=== PATIENT | male | born 1975 | race American Indian/Alaskan Native ===

== ENCOUNTER 2021-09-14 10:48 | Inpatient (IN) | payer SELFPAY ==
--- NOTE | 2021-09-14 11:53 | XRay Report ---
CHEST 2 VIEWS INDICATION / CLINICAL INFORMATION: SOB. COMPARISON: None available. FINDINGS: SUPPORT DEVICES: None. HEART / MEDIASTINUM: There is an endovascular stent graft in the descending thoracic aorta. There is cardiomegaly. LUNGS / PLEURA: Bilateral airspace opacities, worse in the right lung. No pneumothorax. ADDITIONAL FINDINGS: No significant additional findings. IMPRESSION: 1. Bilateral airspace opacities, worse in the right lung. This could represent pneumonia or pulmonary edema. Recommend clinical correlation. 2. Cardiomegaly with stent graft of descending thoracic aorta. Signer Name: Adam Holland MD Signed: 09/14/2021 11:49 AM Workstation Name: [id number]
[2021-09-14] MEDS ORDERED: FUROSEMIDE 40 MG/4 ML INJ IV ONE (12:08)
[2021-09-14 12:13] LABS: Basophils # (Auto) 0.1 K/mm3 (0.0-0.1); Basophils % (Auto) 1.1 % (0.0-1.8); Eosinophils # (Auto) 0.1 K/mm3 (0.0-0.4); Eosinophils % (Auto) 1.2 % (0.0-4.3); Hematocrit 32.8 % (35.5-45.6); Hemoglobin 10.7 gm/dl (11.8-15.2); Lymphocytes # (Auto) 1.3 K/mm3 (1.2-5.4); Lymphocytes % (Auto) 10.1 % (13.4-35.0); Mean Corpuscular HGB Conc 33 % (32-34); Mean Corpuscular Volume 84 fl (84-94); Monocytes # (Auto) 0.6 K/mm3 (0.0-0.8); Monocytes % (Auto) 4.7 % (0.0-7.3); Platelet Count 489 K/mm3 (140-440); Red Blood Count 3.93 M/mm3 (3.65-5.03); Red Cell Distribution Width 15.4 % (13.2-15.2)
--- NOTE | 2021-09-14 12:13 | Emergency Department Report ---
HPI - General Chief Complaint: Dyspnea/Respdistress Time Seen by Provider: 09/14/21 11:32 - HPI HPI: Room 19 The patient is a 46-year-old male present with a chief complaint of shortness of breath. Patient states for the past 3 days he has had symptoms similar to what he had 3 months ago when he was diagnosed with pneumonia. Patient complains of cough that is nonproductive nasal congestion and shortness of breath. Patient has occasional right-sided chest pain and chest congestion. Patient states he has also noticed bilateral lower extremity edema. The patient states he has been vaccinated against Covid receiving his second Moderna vaccine in January 2021 ED Past Medical Hx - Past Medical History Previous Medical History?: Yes Hx Hypertension: Yes Hx Congestive Heart Failure: Yes Hx Renal Disease: Yes (History of acute renal failure) Additional medical history: aortic disection - Surgical History Additional Surgical History: Aortic dissection repair [place] September 2020 - Family History Family history: no significant - Social History Smoking Status: Former Smoker (None x2 years) Substance Use Type: None (Denies illicit drug use), Alcohol (Rarely) ED Review of Systems ROS: Stated complaint: SHORTNESS OF BREATH Other details as noted in HPI Constitutional: denies: fever Eyes: denies: eye pain ENT: denies: throat pain Respiratory: SOB with exertion Cardiovascular: as per HPI, edema Endocrine: no symptoms reported Gastrointestinal: denies: abdominal pain Genitourinary: denies: dysuria Musculoskeletal: denies: back pain Neurological: denies: headache Physical Exam - Physical Exam Vital Signs: Vital Signs 09/14/21 09/14/21 11:21 11:56 Temperature 98.4 F Pulse Rate 113 H Respiratory 16 42 H Rate O2 Sat by Pulse 85 94 Oximetry Physical Exam: GENERAL: The patient is well-developed well-nourished male lying on stretcher not appearing to be in acute distress. [] HEENT: Normocephalic. Atraumatic. Extraocular motions are intact. Patient has moist mucous membranes. NECK: Supple. Trachea midline CHEST/LUNGS: Coarse breath sounds at the bases. Slightly increased work of breathing HEART/CARDIOVASCULAR: Regular. There is tachycardia. There is no gallop rub or murmur. ABDOMEN: Abdomen is soft, nontender. Patient has normal bowel sounds. There is no abdominal distention. SKIN: There is no rash. There is trace to 1+ bilateral lower extremity pitting edema. There is no diaphoresis. NEURO: The patient is awake, alert, and oriented. The patient is cooperative. The patient has no focal neurologic deficits. The patient has normal speech. GCS 15 MUSCULOSKELETAL: There is no evidence of acute injury. ED Course Vital Signs 09/14/21 09/14/21 11:21 11:56 Temperature 98.4 F Pulse Rate 113 H Respiratory 16 42 H Rate O2 Sat by Pulse 85 94 Oximetry - Consultations Consultation #1: 09/14/21 12:59 [facility] called ED Medical Decision Making - Lab Data Result diagrams: 09/14/21 11:43 09/14/21 11:43 - Radiology Data Radiology results: report reviewed (Chest x-ray), image reviewed (Chest x-ray) interpreted by me: Chest [id number] patchy infiltrates. No pneumothorax [facility] [address] [place] [address] XRay Report Signed Patient: MIHIR HARRIS MR#: [id number] : 1975 Acct:[id number] Age/Sex: 46 / M ADM Date: 09/14/21 Loc: ED Attending Dr: Ordering Physician: MARYBETH BURRELL Date of Service: 09/14/21 Procedure(s): XR chest routine 2V Accession Number(s): [id number] cc: MARYBETH BURRELL Fluoro Time In Minutes: CHEST 2 VIEWS INDICATION / CLINICAL INFORMATION: SOB. COMPARISON: None available. FINDINGS: SUPPORT DEVICES: None. HEART / MEDIASTINUM: There is an endovascular stent graft in the descending thoracic aorta. There is cardiomegaly. LUNGS / PLEURA: Bilateral airspace opacities, worse in the right lung. No pneumothorax. ADDITIONAL FINDINGS: No significant additional findings. IMPRESSION: 1. Bilateral airspace opacities, worse in the right lung. This could represent pneumonia or pulmonary edema. Recommend clinical correlation. 2. Cardiomegaly with stent graft of descending thoracic aorta. Signer Name: Donta Plata MD Signed: 09/14/2021 11:49 AM Workstation Name: [id number] Transcribed By: DB Dictated By: DONTA PLATA MD Electronically Authenticated By: DONTA PLATA MD Signed Date/Time: 09/14/21 1149 DD/ 1147 TD/TT: - Differential Diagnosis CHF exacerbation, bilateral pneumonia, volume overload, COVID-19 omicron Critical care attestation.: If time is entered above; I have spent that time in minutes in the direct care of this critically ill patient, excluding procedure time. ED Disposition Clinical Impression: Hypoxia, CHF exacerbation Disposition: ADMITTED INPATIENT Is pt being admited?: Yes Does the pt Need Aspirin: No Condition: Serious Referrals: PRIMARY CARE, [Primary Care Provider] - 3-5 Days Time of Disposition: 13:03
[2021-09-14 12:40] LABS: Calcium 9.5 mg/dL (8.4-10.2)
[2021-09-14 12:52] LABS: Chol/HDL Ratio 3.09 %
[2021-09-14] MEDS ORDERED: HYDROmorphone 1 MG/1 ML INJ IV PRN ×2 (12:57)
[2021-09-14] MEDS ORDERED: ACETAMINOPHEN 325 MG TAB PO PRN ×2 (12:57)
[2021-09-14] MEDS ORDERED: SODIUM CHLORIDE 0.9% 1000 ML IV SOLN IV ONE (12:57)
[2021-09-14] MEDS ORDERED: ALBUTEROL 2.5 MG/3 ML NEBU IH PRN (12:57)
[2021-09-14] MEDS ORDERED: ONDANSETRON 4 MG/2 ML INJ IV PRN (12:57)
[2021-09-14] MEDS ORDERED: oxyCODONE /ACETAMINOPHEN 5-325MG TAB PO PRN (12:57)
--- NOTE | 2021-09-14 12:57 | History and Physical Report ---
History of Present Illness Chief complaint: I cannot breathe History of present illness: 46 YO Male with Obesity, HTN, CHF, CKD, PAD S/P Aortic Dissection presents to ED for evaluation. Patient reports "I cannot breathe". Patient states that he has experienced generalized weakness, shortness of breath, fatigue, malaise, body aches, dry cough, subjective fever, nasal congestion over the past 3 days with persistent and worsening symptoms over the same timeframe. Patient transported to [facility] via private vehicle for further care and evaluation of the aforementioned symptoms. The patient was seen and evaluated in the emergency department. All lab and imaging studies reviewed. Patient found to have a pulse oximetry of 86% on room air with exertion which is consistent with acute hypoxemic respiratory failure. Patient treated with supplemental oxygen without improvement in symptoms. Patient subsequently treated with noninvasive positive pressure ventilation with mild improvement in symptoms. Chest x-ray revealed bilateral pneumonia complicated by sepsis. Patient admitted to medical floor and initiated on sepsis protocol as well as coronavirus protocol. Patient acknowledges subjective fever but denies chills, chest pain, palpitation, skin rash, recent ill contacts, or known exposure to COVID-19. No prior admission for review. No medication listed at time of admission for reconciliation. Advanced care planning conducted in ED. Patient fully vaccinated against COVID- 19 in January 2021. Patient is due for his vaccination booster but has not received a booster. Past History Past Medical History: heart failure, hypertension Past Surgical History: Other (Vascular surgery) Social history: single. denies: smoking, alcohol abuse, prescription drug abuse Family history: diabetes, hypertension Medications and Allergies Allergies Allergy/AdvReac Type Severity Reaction Status Date / Time No Known Allergies Allergy Verified 09/14/21 11:26 Home Medications Medication Instructions Recorded Confirmed Last Taken Type NIFEdipine [Procardia Xl] 60 mg PO DAILY 09/14/21 09/14/21 Unknown History hydrALAZINE [Apresoline TAB] 100 mg PO TID 09/14/21 09/14/21 Unknown History Review of Systems Constitutional: fever, weakness, malaise, lethargy, no weight loss, no weight gain Ears, nose, mouth and throat: other (Diminished sense of smell, diminished sense of taste), no ear pain Cardiovascular: no chest pain, no orthopnea, no palpitations Respiratory: cough, shortness of breath, no cough with sputum, no excessive sputum Gastrointestinal: no abdominal pain, no nausea, no vomiting Genitourinary Male: no hematuria, no flank pain, no discharge, no urinary frequency, no urinary hesitancy Rectal: no pain, no incontinence, no bleeding Musculoskeletal: no neck stiffness, no neck pain, no arm numbness/tingling, no low back pain Integumentary: no rash, no pruritis, no redness Neurological: no transient paralysis, no paralysis, no weakness, no numbness, no tingling, no seizures Psychiatric: no anxiety, no memory loss, no sleep disturbances, no insomnia, no hypersomnia, no change in appetite, no disorientation, no hallucinations Endocrine: no cold intolerance, no heat intolerance, no excessive thirst, no polydipsia, no polyuria Hematologic/Lymphatic: no easy bruising, no easy bleeding Allergic/Immunologic: no allergic rhinitis, no wheezing Exam - Constitutional Vitals: Temp Pulse Resp BP Pulse Ox 98.4 F 94 H 47 H 181/110 86 09/14/21 11:21 09/14/21 12:30 09/14/21 12:30 09/14/21 12:30 09/14/21 12:30 General appearance: Present: mild distress, obese - EENT Eyes: Present: PERRL ENT: hearing intact, clear oral mucosa - Neck Neck: Present: supple, normal ROM - Respiratory Respiratory effort: labored, accessory muscle use Respiratory: bilateral: diminished, rhonchi - Cardiovascular Rhythm: other (Tachycardia) Heart Sounds: Present: S1 & S2. Absent: rub, click - Extremities Extremities: pulses symmetrical, No edema Peripheral Pulses: abnormal (Capillary refill greater than 3.5 seconds) - Abdominal General gastrointestinal: Present: soft, non-tender, non-distended, normal bowel sounds Male genitourinary: Present: normal - Integumentary Integumentary: Present: warm, dry, clammy, decreased turgor - Musculoskeletal Musculoskeletal: generalized weakness - Psychiatric Psychiatric: appropriate mood/affect, intact judgment & insight, agitated - Neurologic Neurologic: CNII-XII intact, moves all extremities HEART Score - HEART Score Troponin: Troponin T 0.046 ng/mL (0.00-0.029) H 09/14/21 11:43 Results - Labs CBC & Chem 7: 09/14/21 11:43 09/14/21 11:43 Labs: Abnormal lab results 09/14/21 09/14/21 09/14/21 Range/Units 11:43 11:43 11:43 WBC 12.6 H (4.5-11.0) K/mm3 Hgb 10.7 L (11.8-15.2) gm/dl Hct 32.8 L (35.5-45.6) % MCH 27 L (28-32) pg RDW 15.4 H (13.2-15.2) % Plt Count 489 H (140-440) K/mm3 Lymph % (Auto) 10.1 L (13.4-35.0) % Seg Neutrophils % 82.9 H (40.0-70.0) % Seg Neutrophils # 10.5 H (1.8-7.7) K/mm3 Potassium 5.1 H (3.6-5.0) mmol/L Carbon Dioxide 19 L (22-30) mmol/L BUN 47 H (9-20) mg/dL Creatinine 3.5 H (0.8-1.3) mg/dL Troponin T 0.046 H (0.00-0.029) ng/mL NT-Pro-B Natriuret Pep 6001 H (0-450) pg/mL Assessment and Plan - Patient Problems (1) Sepsis Current Visit: Yes Status: Acute Qualifiers: Acute respiratory failure type: with hypoxia Plan to address problem: Sepsis protocol: Chest x-ray, CBC, CMP, supplemental oxygen, pulse oximetry, IV antibiotic therapy, IV fluid resuscitation therapy, maintain mean arterial pressure greater than equal sixty-five, serial lactic acid level, blood culture. (2) Acute hypoxemic respiratory failure Current Visit: Yes Status: Acute Plan to address problem: Chest x-ray, supplemental oxygen, pulse oximetry, nebulizer therapy, pulmonary toilet (3) Suspected 2019-nCoV infection Current Visit: Yes Status: Acute Plan to address problem: Coronavirus protocol: Supplemental oxygen, pulse oximetry, noninvasive positive pressure ventilation, prone positioning while in bed, vitamin C therapy, vitamin D therapy, zinc therapy, prophylactic anticoagulation. IV steroid therapy. (4) Pneumonia Current Visit: Yes Status: Acute Plan to address problem: Pneumonia protocol: Chest x-ray, CBC, CMP, supplemental oxygen, pulse oximetry, nebulizer therapy, blood culture. (5) Obesity hypoventilation syndrome Current Visit: Yes Status: Acute Plan to address problem: Balanced diet, increase physical activity at discharge (6) Accelerated hypertension Current Visit: Yes Status: Acute Plan to address problem: Monitor blood pressure every shift, continue medical management. (7) DVT prophylaxis Current Visit: Yes Status: Acute Plan to address problem: SCD to bilateral lower extremities while in bed, prophylactic anticoagulation (8) Advance care planning Current Visit: Yes Status: Acute Plan to address problem: Disease education conducted, care plan discussed, diagnoses discussed, prognosis discussed, patient is full code. Patient counseled regarding undergoing booster for coronavirus infection. Patient knowledges understanding and agreement with care plan. +30 minutes. (9) COVID-19 vaccination not done Current Visit: Yes Status: Acute Plan to address problem: Patient COVID-19 vaccination booster not done and is overdue at this time. Patient counseled.
[2021-09-14] MEDS ORDERED: AZITHROMYCIN/NS 500 MG/250 ML 500 MG/250 ML BAG IV SCH (13:00)
[2021-09-14] MEDS: cefTRIAXone/NS 2 GM/100 ML 2 GM/100 ML BAG IV SCH (13:34)
[2021-09-14] MEDS: methylPREDNISolone Sod Succinate 40 MG/1 ML INJ IV SCH ×2 (13:34→21:50)
[2021-09-14] MEDS ORDERED: LORazepam 2 MG/ML VIAL IV PRN (15:00)
[2021-09-14] MEDS ORDERED: hydrALAZINE 20 MG/1 ML INJ IV ONE (16:18)
[2021-09-14] MEDS ORDERED: cloNIDine 0.2 MG TAB PO ONE (17:21)
[2021-09-14] MEDS ORDERED: hydrALAZINE 20 MG/1 ML INJ IV PRN (20:41)
[2021-09-14] MEDS: ASCORBIC ACID 500 MG TAB PO SCH (21:48)
[2021-09-14] MEDS: ZINC SULFATE 220 MG CAP PO SCH (21:48)
[2021-09-14] MEDS: HEPARIN 5,000 UNIT/1 ML VIAL SUB-Q SCH (21:52)
[2021-09-15] MEDS: methylPREDNISolone Sod Succinate 40 MG/1 ML INJ IV SCH ×3 (05:38→21:13)
[2021-09-15 06:30] LABS: Hematocrit 31.6 % (35.5-45.6); Hemoglobin 9.6 gm/dl (11.8-15.2); Mean Corpuscular HGB Conc 30 % (32-34); Mean Corpuscular Volume 85 fl (84-94); Platelet Count 470 K/mm3 (140-440); Red Blood Count 3.69 M/mm3 (3.65-5.03); Red Cell Distribution Width 15.6 % (13.2-15.2)
[2021-09-15 06:46] LABS: Calcium 9.3 mg/dL (8.4-10.2)
[2021-09-15] MEDS ORDERED: hydrALAZINE 100 MG TAB PO SCH ×2 (08:00→13:20)
[2021-09-15 08:05] LABS: Anisocytosis 1+; Hypochromasia 1+; Total Cells Counted 100
[2021-09-15 08:06] LABS: Platelet Estimate Consistent w Auto
--- NOTE | 2021-09-15 08:35 | Consultation ---
History of Present Illness - Reason for Consult Consult date: 09/15/21 acute renal failure - History of Present Illness Mr. Collins is a 46y with hx of RAHEL requiring hemodialysis w/ recovery of renal function, residual stage IV CKD and CHF who presented to the ED with SOB. Patient reports that he was in usual state of health until appx 2-3 days ago when he began experiencing dyspnea with exertion and leg swelling. He denies fever, chills, cough. He denies chest pain, He reports a hx of RAHEL requiring dialysis. Mr. Collins states that his last treatment was on February 06. He states that his GFR was in the 20s (improved from 11) at his last visit with [facility]. Mr. Collins reports that he is seen every 3 months. Past History Past Medical History: heart failure, hypertension, renal failure (Hx of RAHEL requring HD (last treatment January 2021);now w/ stage IV CKD) Past Surgical History: Other (Vascular surgery) Social history: single. denies: smoking, alcohol abuse, prescription drug abuse Family history: diabetes, hypertension Medications and Allergies Allergies Allergy/AdvReac Type Severity Reaction Status Date / Time No Known Allergies Allergy Verified 09/14/21 11:26 Home Medications Medication Instructions Recorded Confirmed Last Taken Type NIFEdipine [Procardia Xl] 60 mg PO DAILY 09/14/21 09/14/21 Unknown History hydrALAZINE [Apresoline TAB] 25 mg PO TID 09/14/21 Unknown History Labetalol HCl [Labetalol 300mg TAB] 300 mg PO TID 09/15/21 09/15/21 09/13/21 21:00 History Active Meds: Active Medications Acetaminophen (Acetaminophen 325 Mg Tab) 650 mg PO Q4H PRN PRN Reason: Pain MILD(1-3)/Fever >100.5/ORNELAS Albuterol (Albuterol 2.5 Mg/3 Ml Nebu) 2.5 mg IH Q4HRT PRN PRN Reason: Shortness Of Breath Ascorbic Acid (Ascorbic Acid 500 Mg Tab) 500 mg PO BID MATILDA Last Admin: 09/14/21 21:48 Dose: 500 mg Documented by: Azithromycin (Azithromycin 250 Mg Tab) 500 mg PO QDAY MATILDA Stop: 09/18/21 10:01 Cholecalciferol (Cholecalciferol (Vit D3) 1000 Unit (25 Mcg) Tab) 1,000 unit PO QDAY [facility] Heparin Sodium (Porcine) (Heparin 5,000 Unit/1 Ml Vial) 5,000 unit SUB-Q Q12HR [facility] Last Admin: 09/14/21 21:52 Dose: 5,000 unit Documented by: Hydralazine HCl (Hydralazine 100 Mg Tab) 100 mg PO TID [facility] Hydralazine HCl (Hydralazine 20 Mg/1 Ml Inj) 10 mg IV Q6HR PRN PRN Reason: Hypertension Last Admin: 09/14/21 20:54 Dose: 10 mg Documented by: Hydromorphone HCl (Hydromorphone 1 Mg/1 Ml Inj) 0.25 mg IV Q4H PRN PRN Reason: Pain, Moderate (4-6) Hydromorphone HCl (Hydromorphone 1 Mg/1 Ml Inj) 0.5 mg IV Q23H PRN PRN Reason: Pain , Severe (7-10) Ceftriaxone Sodium (Rocephin/Ns 2 Gm/100 Ml) 2 gm in 100 mls @ 200 mls/hr IV Q24H [facility]; Protocol Stop: 09/18/21 14:29 Last Admin: 09/14/21 13:34 Dose: 200 mls/hr Documented by: Lorazepam (Lorazepam 2 Mg/Ml Vial) 1 mg IV Q8H PRN PRN Reason: Agitation Methylprednisolone Sodium Succinate (Methylprednisolone Sod Succinate 40 Mg/1 Ml Inj) 40 mg IV Q8H [facility] Last Admin: 09/15/21 05:38 Dose: 40 mg Documented by: Nifedipine (Nifedipine Xl 60 Mg Tab) 60 mg PO DAILY [facility] Ondansetron HCl (Ondansetron 4 Mg/2 Ml Inj) 4 mg IV Q8H PRN PRN Reason: Nausea And Vomiting Oxycodone/Acetaminophen (Oxycodone /Acetaminophen 5-325mg Tab) 1 tab PO Q16H PRN PRN Reason: Pain, Moderate (4-6) Sodium Chloride (Sodium Chloride 0.9% 10 Ml Flush Syringe) 10 ml IV BID [facility] Last Admin: 09/14/21 21:50 Dose: 10 ml Documented by: Sodium Chloride (Sodium Chloride 0.9% 10 Ml Flush Syringe) 10 ml IV PRN PRN PRN Reason: LINE FLUSH Zinc Sulfate (Zinc Sulfate 220 Mg Cap) 220 mg PO BID [facility] Last Admin: 09/14/21 21:48 Dose: 220 mg Documented by: Review of Systems All systems: negative Exam - Vital Signs Vital signs: Vital Signs Temp Pulse Resp Pulse Ox 98.4 F 113 H 16 85 09/14/21 11:21 09/14/21 11:21 09/14/21 11:21 09/14/21 11:21 - General Appearance General appearance: well-developed, well-nourished EENT: ATNC Respiratory: Other (deferred as isolation stethoscope not available) Heart: other (deferred as isolation stethoscope not available) Gastrointestinal: Absent: tenderness, distended Integumentary: no rash, warm and dry Musculoskeletal: Present: other (no edema) Psychiatric: cooperative Results - Lab Results 09/15/21 05:17 09/15/21 05:17 Most recent lab results Calcium 9.3 mg/dL (8.4-10.2) 09/15/21 05:17 Assessment and Plan Impression: * Stage IV CKD --Hx of RAHEL requiring HD (discontinued in January 2021)' * Acute hypoxic respiratory failure * Hypertension * Congestive heart failure Plan: * Renal function at/near baseline per patient. Continue conservative management and close observation. No indication for hemodialysis at this time. * Diuresis prn * Abx per primary team * Await COVID 19 PCR results * Dose medications for renal function * Avoid potential nephrotoxins
--- NOTE | 2021-09-15 09:57 | Progress Note ---
Assessment and Plan Assessment and plan: 46 YO Male with Obesity, HTN, CHF, CKD, PAD S/P Aortic Dissection presents to ED for evaluation. Patient reports "I cannot breathe". Patient states that he has experienced generalized weakness, shortness of breath, fatigue, malaise, body aches, dry cough, subjective fever, nasal congestion over the past 3 days with persistent and worsening symptoms over the same timeframe. Patient transported to [facility] via private vehicle for further care and evaluation of the aforementioned symptoms. The patient was seen and evaluated in the emergency department. All lab and imaging studies reviewed. Patient found to have a pulse oximetry of 86% on room air with exertion which is consistent with acute hypoxemic respiratory failure. Patient treated with supplemental oxygen without improvement in symptoms. Patient subsequently treated with noninvasive positive pressure ventilation with mild improvement in symptoms. Chest x-ray revealed bilateral pneumonia complicated by sepsis. Patient admitted to medical floor and initiated on sepsis protocol as well as coronavirus protocol. Patient acknowledges subjective fever but denies chills, chest pain, palpitation, skin rash, recent ill contacts, or known exposure to COVID-19. No prior admission for review. No medication listed at time of admission for reconciliation. Advanced care planning conducted in ED. Patient fully vaccinated against COVID-19 in January 2021. Patient is due for his vaccination booster but has not received a booster. 09/15: Patient seen this morning remains on BiPAP we will consult cardiology, flight test mechanic and vice president of compliance. We will begin to wean BiPAP. Patient has underlying elevated troponin which could be secondary to renal dysfunction nevertheless we will monitor WBC has improved I discussed with him extensively he does not follow with any bilingual social worker he does have a flight test mechanic. He is a [place] patient. We will see if we can wean him off the BiPAP today and aggressively diurese him while monitoring his renal function. Plan of care discussed with the patient and also with flight test mechanic. I put a call to the pulmonary team to update them on the consult waiting for callback (1) Sepsis Current Visit: Yes Status: Acute Qualifiers: Acute respiratory failure type: with hypoxia Plan to address problem: Sepsis protocol: Chest x-ray, CBC, CMP, supplemental oxygen, pulse oximetry, IV antibiotic therapy, IV fluid resuscitation therapy, maintain mean arterial pressure greater than equal sixty-five, serial lactic acid level, blood culture. (2) Acute hypoxemic respiratory failure Current Visit: Yes Status: Acute Plan to address problem: Chest x-ray, supplemental oxygen, pulse oximetry, nebulizer therapy, pulmonary toilet (3) Suspected 2019-nCoV infection Current Visit: Yes Status: Acute Plan to address problem: Coronavirus protocol: Supplemental oxygen, pulse oximetry, noninvasive positive pressure ventilation, prone positioning while in bed, vitamin C therapy, vitamin D therapy, zinc therapy, prophylactic anticoagulation. IV steroid therapy. (4) Pneumonia Current Visit: Yes Status: Acute Plan to address problem: Pneumonia protocol: Chest x-ray, CBC, CMP, supplemental oxygen, pulse oximetry, nebulizer therapy, blood culture. (5) Obesity hypoventilation syndrome Current Visit: Yes Status: Acute Plan to address problem: Balanced diet, increase physical activity at discharge (6) Accelerated hypertension Current Visit: Yes Status: Acute Plan to address problem: Monitor blood pressure every shift, continue medical management. (7) acute kidney injury on chronic CKD likely underlying vasomotor nephropathy (8) possible underlining volume overload question underlining congestive heart failure probably systolic (9) hyperkalemia improved (10) metabolic acidosis (11) anemia of chronic disease (12) DVT prophylaxis Current Visit: Yes Status: Acute Plan to address problem: SCD to bilateral lower extremities while in bed, prophylactic anticoagulation (13) Advance care planning Current Visit: Yes Status: Acute Plan to address problem: Disease education conducted, care plan discussed, diagnoses discussed, prognosis discussed, patient is full code. Patient counseled regarding undergoing booster for coronavirus infection. Patient knowledges understanding and agreement with care plan. +30 minutes. (14) COVID-19 vaccination not done Current Visit: Yes Status: Acute Plan to address problem: Patient COVID-19 vaccination booster not done and is overdue at this time. Patient counseled. History Interval history: Patient seen and examined this morning still on BiPAP unsure of duration but states that he is feeling better. Hospitalist Physical - Physical exam Narrative exam: VITAL SIGNS: Reviewed. GENERAL: The patient appears normally developed, on BiPAP this vital signs as documented. HEAD: No signs of head trauma. EYES: Pupils are equal. Extraocular motions intact. EARS: Hearing grossly intact. MOUTH: Oropharynx is normal. NECK: No adenopathy, no JVD. CHEST: Chest with diminished breath sounds bilaterally. No wheezes, rales, or rhonchi. CARDIAC: Regular rate and rhythm. S1 and S2, without murmurs, gallops, or rubs. VASCULAR: No Edema. Peripheral pulses normal and equal in all extremities. ABDOMEN: Soft, non tender and non distended. No rebound or guarding, and no masses palpated. Bowel Sounds normal. MUSCULOSKELETAL: Good range of motion of all major joints. Extremities without clubbing, cyanosis. +1 bilateral pitting edema. NEUROLOGIC EXAM: Alert and oriented x 3 No focal sensory or strength deficits. Speech normal. Follows commands. PSYCHIATRIC: Mood normal. SKIN: detail exam as documented in skin assessment - Constitutional Vitals: Temp Pulse Resp BP Pulse Ox 98.2 F 97 H 18 165/99 100 09/15/21 04:37 09/15/21 04:37 09/15/21 04:37 09/15/21 04:37 09/15/21 04:37 General appearance: Present: mild distress, obese HEART Score - HEART Score Troponin: Troponin T 0.046 ng/mL (0.00-0.029) H 09/14/21 11:43 Results - Labs CBC & Chem 7: 09/15/21 05:17 09/15/21 05:17 Labs: Laboratory Last Values WBC 10.6 K/mm3 (4.5-11.0) 09/15/21 05:17 RBC 3.69 M/mm3 (3.65-5.03) 09/15/21 05:17 Hgb 9.6 gm/dl (11.8-15.2) L 09/15/21 05:17 Hct 31.6 % (35.5-45.6) L 09/15/21 05:17 MCV 85 fl (84-94) 09/15/21 05:17 MCH 26 pg (28-32) L 09/15/21 05:17 MCHC 30 % (32-34) L 09/15/21 05:17 RDW 15.6 % (13.2-15.2) H 09/15/21 05:17 Plt Count 470 K/mm3 (140-440) H 09/15/21 05:17 Lymph % (Auto) 10.1 % (13.4-35.0) L 09/14/21 11:43 [place] % (Auto) 4.7 % (0.0-7.3) 09/14/21 11:43 Eos % (Auto) 1.2 % (0.0-4.3) 09/14/21 11:43 Baso % (Auto) 1.1 % (0.0-1.8) 09/14/21 11:43 Lymph # (Auto) 1.3 K/mm3 (1.2-5.4) 09/14/21 11:43 [place] # (Auto) 0.6 K/mm3 (0.0-0.8) 09/14/21 11:43 Eos # (Auto) 0.1 K/mm3 (0.0-0.4) 09/14/21 11:43 Baso # (Auto) 0.1 K/mm3 (0.0-0.1) 09/14/21 11:43 Add Manual Diff Complete 09/15/21 05:17 Total Counted 100 09/15/21 05:17 Seg Neutrophils % Medical Office Professional Instructor 09/15/21 05:17 Seg Neuts % (Manual) 94.0 % (40.0-70.0) H 09/15/21 05:17 Lymphocytes % (Manual) 5.0 % (13.4-35.0) L 09/15/21 05:17 Monocytes % (Manual) 1.0 % (0.0-7.3) 09/15/21 05:17 Nucleated RBC % Not Reportable 09/15/21 05:17 Seg Neutrophils # 10.5 K/mm3 (1.8-7.7) H 09/14/21 11:43 Seg Neutrophils # Man 10.0 K/mm3 (1.8-7.7) H 09/15/21 05:17 Band Neutrophils # 0.0 K/mm3 09/15/21 05:17 Lymphocytes # (Manual) 0.5 K/mm3 (1.2-5.4) L 09/15/21 05:17 Abs React Lymphs (Man) 0.0 K/mm3 09/15/21 05:17 Monocytes # (Manual) 0.1 K/mm3 (0.0-0.8) 09/15/21 05:17 Eosinophils # (Manual) 0.0 K/mm3 (0.0-0.4) 09/15/21 05:17 Basophils # (Manual) 0.0 K/mm3 (0.0-0.1) 09/15/21 05:17 Metamyelocytes # 0.0 K/mm3 09/15/21 05:17 Myelocytes # 0.0 K/mm3 09/15/21 05:17 Promyelocytes # 0.0 K/mm3 09/15/21 05:17 Blast Cells # 0.0 K/mm3 09/15/21 05:17 WBC Morphology Not Reportable 09/15/21 05:17 Hypersegmented Neuts Not Reportable 09/15/21 05:17 Hyposegmented Neuts Not Reportable 09/15/21 05:17 Hypogranular Neuts Not Reportable 09/15/21 05:17 Smudge Cells Not Reportable 09/15/21 05:17 Toxic Granulation Not Reportable 09/15/21 05:17 Toxic Vacuolation Not Reportable 09/15/21 05:17 Dohle Bodies Not Reportable 09/15/21 05:17 Pelger-Huet Anomaly Not Reportable 09/15/21 05:17 Mark Rods Not Reportable 09/15/21 05:17 Platelet Estimate Consistent w auto 09/15/21 05:17 Clumped Platelets Not Reportable 09/15/21 05:17 Plt Clumps, EDTA Not Reportable 09/15/21 05:17 Large Platelets Not Reportable 09/15/21 05:17 Giant Platelets Not Reportable 09/15/21 05:17 Platelet Satelliting Not Reportable 09/15/21 05:17 Plt Morphology Comment Not Reportable 09/15/21 05:17 RBC Morphology Not Reportable 09/15/21 05:17 Dimorphic RBCs Not Reportable 09/15/21 05:17 Polychromasia Not Reportable 09/15/21 05:17 Hypochromasia 1+ 09/15/21 05:17 Poikilocytosis Not Reportable 09/15/21 05:17 Anisocytosis 1+ 09/15/21 05:17 Microcytosis Not Reportable 09/15/21 05:17 Macrocytosis Not Reportable 09/15/21 05:17 Spherocytes Not Reportable 09/15/21 05:17 Pappenheimer Bodies Not Reportable 09/15/21 05:17 Sickle Cells Not Reportable 09/15/21 05:17 Target Cells Not Reportable 09/15/21 05:17 Tear Drop Cells Not Reportable 09/15/21 05:17 Ovalocytes Not Reportable 09/15/21 05:17 Helmet Cells Not Reportable 09/15/21 05:17 [place] Bodies Not Reportable 09/15/21 05:17 [place] Rings Not Reportable 09/15/21 05:17 [place] Cells Not Reportable 09/15/21 05:17 Bite Cells Not Reportable 09/15/21 05:17 Crenated Cell Not Reportable 09/15/21 05:17 Elliptocytes Not Reportable 09/15/21 05:17 Acanthocytes (Spur) Not Reportable 09/15/21 05:17 Rouleaux Not Reportable 09/15/21 05:17 Hemoglobin C Crystals Not Reportable 09/15/21 05:17 Schistocytes Not Reportable 09/15/21 05:17 Malaria parasites Not Reportable 09/15/21 05:17 Isidro Bodies Not Reportable 09/15/21 05:17 Hem Pathologist Commnt No 09/15/21 05:17 D-Dimer 1232.79 ng/mlDDU (0-234) H 09/14/21 13:23 Sodium 143 mmol/L (137-145) 09/15/21 05:17 Potassium 4.3 mmol/L (3.6-5.0) 09/15/21 05:17 Chloride 107.1 mmol/L (98-107) H 09/15/21 05:17 Carbon Dioxide 18 mmol/L (22-30) L 09/15/21 05:17 Anion Gap 22 mmol/L 09/15/21 05:17 BUN 59 mg/dL (9-20) H 09/15/21 05:17 Creatinine 3.8 mg/dL (0.8-1.3) H 09/15/21 05:17 Estimated GFR 21 ml/min 09/15/21 05:17 BUN/Creatinine Ratio 16 % 09/15/21 05:17 Glucose 130 mg/dL (75-100) H 09/15/21 05:17 Lactic Acid 1.30 mmol/L (0.7-2.0) 09/14/21 20:50 Calcium 9.3 mg/dL (8.4-10.2) 09/15/21 05:17 Total Bilirubin 0.60 mg/dL (0.1-1.2) 09/14/21 11:43 AST 31 units/L (5-40) 09/14/21 11:43 ALT 13 units/L (7-56) 09/14/21 11:43 Alkaline Phosphatase 101 units/L (35-129) 09/14/21 11:43 Lactate Dehydrogenase 247 units/L (91-180) H 09/14/21 13:23 Troponin T 0.046 ng/mL (0.00-0.029) H 09/14/21 11:43 C-Reactive Protein 6.00 mg/dL (0.00-1.30) H 09/14/21 13:23 NT-Pro-B Natriuret Pep 6001 pg/mL (0-450) H 09/14/21 11:43 Total Protein 7.6 g/dL (6.3-8.2) 09/14/21 11:43 Albumin 4.0 g/dL (3.9-5) 09/14/21 11:43 Albumin/Globulin Ratio 1.1 % 09/14/21 11:43 Triglycerides 92 mg/dL (2-149) 09/14/21 11:43 Cholesterol 170 mg/dL (50-199) 09/14/21 11:43 LDL Cholesterol Direct 94 mg/dL (50-130) 09/14/21 11:43 HDL Cholesterol 55 mg/dL (40-59) 09/14/21 11:43 Cholesterol/HDL Ratio 3.09 % 09/14/21 11:43 Procalcitonin 0.24 ng/mL (<0.15) 09/14/21 13:23 Influenza A (Rapid) Negative (Negative) 09/14/21 Unknown Influenza B (Rapid) Negative (Negative) 09/14/21 Unknown Microbiology: Microbiology 09/14/21 12:12 Peripheral/Venous Blood Culture - Preliminary Culture in Progress 09/14/21 12:12 Peripheral/Venous Blood Culture - Preliminary Culture in Progress Uriostegui/IV: Voiding Method Urinal Active Medications - Current Medications Current Medications: Generic Name Dose Route Start Last Admin Trade Name Freq PRN Reason Stop Dose Admin Acetaminophen 650 mg 09/14/21 12:57 Acetaminophen 325 Mg Tab PO Q4H PRN Pain MILD(1-3)/Fever >100.5/ORNELAS Albuterol 2.5 mg 09/14/21 12:57 Albuterol 2.5 Mg/3 Ml Nebu IH Q4HRT PRN Shortness Of Breath Ascorbic Acid 500 mg 09/14/21 22:00 09/14/21 21:48 Ascorbic Acid 500 Mg Tab PO 500 mg BID MATILDA Administration Azithromycin 500 mg 09/15/21 10:00 Azithromycin 250 Mg Tab PO 09/18/21 10:01 QDAY MATILDA Cholecalciferol 1,000 unit 09/15/21 10:00 Cholecalciferol (Vit D3) 1000 Unit (25 Mcg) Tab PO QDAY [facility] Heparin Sodium (Porcine) 5,000 unit 09/14/21 22:00 09/14/21 21:52 Heparin 5,000 Unit/1 Ml Vial SUB-Q 5,000 unit Q12HR MATILDA Administration Hydralazine HCl 100 mg 09/15/21 08:00 Hydralazine 100 Mg Tab PO TID [facility] Hydralazine HCl 10 mg 09/14/21 20:41 09/14/21 20:54 Hydralazine 20 Mg/1 Ml Inj IV 10 mg Q6HR PRN Administration Hypertension Hydromorphone HCl 0.25 mg 09/14/21 12:57 Hydromorphone 1 Mg/1 Ml Inj IV Q4H PRN Pain, Moderate (4-6) Hydromorphone HCl 0.5 mg 09/14/21 12:57 Hydromorphone 1 Mg/1 Ml Inj IV Q23H PRN Pain , Severe (7-10) Ceftriaxone Sodium 2 gm in 100 mls @ 200 mls/hr 09/14/21 14:00 09/14/21 13:34 Rocephin/Ns 2 Gm/100 Ml IV 09/18/21 14:29 200 mls/hr Q24H MATILDA Administration Protocol Lorazepam 1 mg 09/14/21 15:00 Lorazepam 2 Mg/Ml Vial IV Q8H PRN Agitation Methylprednisolone Sodium Succinate 40 mg 09/14/21 14:00 09/15/21 05:38 Methylprednisolone Sod Succinate 40 Mg/1 Ml Inj IV 40 mg Q8H MATILDA Administration Nifedipine 60 mg 09/15/21 10:00 Nifedipine Xl 60 Mg Tab PO DAILY [facility] Ondansetron HCl 4 mg 09/14/21 12:57 Ondansetron 4 Mg/2 Ml Inj IV Q8H PRN Nausea And Vomiting Oxycodone/Acetaminophen 1 tab 09/14/21 12:57 Oxycodone /Acetaminophen 5-325mg Tab PO Q16H PRN Pain, Moderate (4-6) Sodium Chloride 10 ml 09/14/21 22:00 09/14/21 21:50 Sodium Chloride 0.9% 10 Ml Flush Syringe IV 10 ml BID MATILDA Administration Sodium Chloride 10 ml 09/14/21 12:57 Sodium Chloride 0.9% 10 Ml Flush Syringe IV PRN PRN LINE FLUSH Zinc Sulfate 220 mg 09/14/21 22:00 09/14/21 21:48 Zinc Sulfate 220 Mg Cap PO 220 mg BID MATILDA Administration
--- NOTE | 2021-09-15 10:44 | Consultation ---
History of Present Illness - Reason for Consult Consult date: 09/15/21 PUI Requesting physician: RUTHIE ROBB - History of Present Illness The patient is a 46-year-old male with HTN, CHF, CKD, peripheral arterial disease, history of aortic dissection status post EVAR in January 2021 admitted to the hospital with shortness of breath. Noted to be hypoxic on admission requiring BiPAP. WBC 12.6, D-dimer 1232, creatinine 3.8, CRP 6.0, procalcitonin 0.24, LDH 247. Influenza A, influenza B negative. Chest x-ray showed bilateral airspace opacities greater on the right side. Cough present, mainly dry. Reports a runny nose. No fever. No nausea, vomiting diarrhea. No abdominal pain. Denies any urinary complaints. Review of Systems: As per HPI Past History Past Medical History: heart failure, hypertension Past Surgical History: Other (Vascular surgery) Social history: single. denies: smoking, alcohol abuse, prescription drug abuse Family history: diabetes, hypertension Medications and Allergies Allergies Allergy/AdvReac Type Severity Reaction Status Date / Time No Known Allergies Allergy Verified 09/14/21 11:26 Home Medications Medication Instructions Recorded Confirmed Last Taken Type NIFEdipine [Procardia Xl] 60 mg PO DAILY 09/14/21 09/14/21 Unknown History hydrALAZINE [Apresoline TAB] 25 mg PO TID 09/14/21 Unknown History Labetalol HCl [Labetalol 300mg TAB] 300 mg PO TID 09/15/21 09/15/21 09/13/21 21:00 History Active Meds: Active Medications Acetaminophen (Acetaminophen 325 Mg Tab) 650 mg PO Q4H PRN PRN Reason: Pain MILD(1-3)/Fever >100.5/ORNELAS Albuterol (Albuterol 2.5 Mg/3 Ml Nebu) 2.5 mg IH Q4HRT PRN PRN Reason: Shortness Of Breath Ascorbic Acid (Ascorbic Acid 500 Mg Tab) 500 mg PO BID [facility] Last Admin: 09/14/21 21:48 Dose: 500 mg Documented by: Azithromycin (Azithromycin 250 Mg Tab) 500 mg PO QDAY [facility] Stop: 09/18/21 10:01 Cholecalciferol (Cholecalciferol (Vit D3) 1000 Unit (25 Mcg) Tab) 1,000 unit PO QDAY [facility] Heparin Sodium (Porcine) (Heparin 5,000 Unit/1 Ml Vial) 5,000 unit SUB-Q Q12HR [facility] Last Admin: 09/14/21 21:52 Dose: 5,000 unit Documented by: Hydralazine HCl (Hydralazine 100 Mg Tab) 100 mg PO TID [facility] Hydralazine HCl (Hydralazine 20 Mg/1 Ml Inj) 10 mg IV Q6HR PRN PRN Reason: Hypertension Last Admin: 09/14/21 20:54 Dose: 10 mg Documented by: Hydromorphone HCl (Hydromorphone 1 Mg/1 Ml Inj) 0.25 mg IV Q4H PRN PRN Reason: Pain, Moderate (4-6) Hydromorphone HCl (Hydromorphone 1 Mg/1 Ml Inj) 0.5 mg IV Q23H PRN PRN Reason: Pain , Severe (7-10) Ceftriaxone Sodium (Rocephin/Ns 2 Gm/100 Ml) 2 gm in 100 mls @ 200 mls/hr IV Q24H [facility]; Protocol Stop: 09/18/21 14:29 Last Admin: 09/14/21 13:34 Dose: 200 mls/hr Documented by: Lorazepam (Lorazepam 2 Mg/Ml Vial) 1 mg IV Q8H PRN PRN Reason: Agitation Methylprednisolone Sodium Succinate (Methylprednisolone Sod Succinate 40 Mg/1 Ml Inj) 40 mg IV Q8H [facility] Last Admin: 09/15/21 05:38 Dose: 40 mg Documented by: Nifedipine (Nifedipine Xl 60 Mg Tab) 60 mg PO DAILY [facility] Ondansetron HCl (Ondansetron 4 Mg/2 Ml Inj) 4 mg IV Q8H PRN PRN Reason: Nausea And Vomiting Oxycodone/Acetaminophen (Oxycodone /Acetaminophen 5-325mg Tab) 1 tab PO Q16H PRN PRN Reason: Pain, Moderate (4-6) Sodium Chloride (Sodium Chloride 0.9% 10 Ml Flush Syringe) 10 ml IV BID [facility] Last Admin: 09/14/21 21:50 Dose: 10 ml Documented by: Sodium Chloride (Sodium Chloride 0.9% 10 Ml Flush Syringe) 10 ml IV PRN PRN PRN Reason: LINE FLUSH Zinc Sulfate (Zinc Sulfate 220 Mg Cap) 220 mg PO BID [facility] Last Admin: 09/14/21 21:48 Dose: 220 mg Documented by: Physical Examination - Physical Exam Narrative exam: Physical Exam: Constitutional: Alert, cooperative. No acute distress Head, Ears, Nose: Normocephalic, atraumatic. External ears, nose normal Eyes: Conjunctivae/corneas clear. No icterus. No ptosis. Neck: Supple, no meningeal signs Cardiovascular: S1, S2 + Respiratory: Bilateral crackles GI: Soft, non-tender; bowel sounds normal. No peritoneal signs Musculoskeletal: trace pedal edema, no cyanosis. Skin: No rash or abscess Hem/Lymphatic: No palpable cervical or supraclavicular nodes. No lymphangitis Psych: Mood ok. Affect normal Neurological: Awake, alert, oriented. No gross abnormality - Constitutional Vitals: Vital Signs Temp Pulse Resp BP Pulse Ox 98.2 F 97 H 18 165/99 100 09/15/21 04:37 09/15/21 04:37 09/15/21 04:37 09/15/21 04:37 09/15/21 04:37 Temperature -Last 24 Hours Temperature 98.2 F Temperature 98.7 F Temperature 98.4 F Results - Labs CBC & Chem 7: 09/15/21 05:17 09/15/21 05:17 Labs: Abnormal lab results 09/14/21 09/14/21 09/14/21 Range/Units 11:43 11:43 11:43 WBC 12.6 H (4.5-11.0) K/mm3 Hgb 10.7 L (11.8-15.2) gm/dl Hct 32.8 L (35.5-45.6) % MCH 27 L (28-32) pg MCHC (32-34) % RDW 15.4 H (13.2-15.2) % Plt Count 489 H (140-440) K/mm3 Lymph % (Auto) 10.1 L (13.4-35.0) % Seg Neutrophils % 82.9 H (40.0-70.0) % Seg Neuts % (Manual) (40.0-70.0) % Lymphocytes % (Manual) (13.4-35.0) % Seg Neutrophils # 10.5 H (1.8-7.7) K/mm3 Seg Neutrophils # Man (1.8-7.7) K/mm3 Lymphocytes # (Manual) (1.2-5.4) K/mm3 D-Dimer (0-234) ng/mlDDU Potassium 5.1 H (3.6-5.0) mmol/L Chloride (98-107) mmol/L Carbon Dioxide 19 L (22-30) mmol/L BUN 47 H (9-20) mg/dL Creatinine 3.5 H (0.8-1.3) mg/dL Glucose (75-100) mg/dL Lactate Dehydrogenase (91-180) units/L Troponin T 0.046 H (0.00-0.029) ng/mL C-Reactive Protein (0.00-1.30) mg/dL NT-Pro-B Natriuret Pep 6001 H (0-450) pg/mL 09/14/21 09/14/21 09/15/21 Range/Units 13:23 13:23 05:17 WBC (4.5-11.0) K/mm3 Hgb 9.6 L (11.8-15.2) gm/dl Hct 31.6 L (35.5-45.6) % MCH 26 L (28-32) pg MCHC 30 L (32-34) % RDW 15.6 H (13.2-15.2) % Plt Count 470 H (140-440) K/mm3 Lymph % (Auto) (13.4-35.0) % Seg Neutrophils % (40.0-70.0) % Seg Neuts % (Manual) 94.0 H (40.0-70.0) % Lymphocytes % (Manual) 5.0 L (13.4-35.0) % Seg Neutrophils # (1.8-7.7) K/mm3 Seg Neutrophils # Man 10.0 H (1.8-7.7) K/mm3 Lymphocytes # (Manual) 0.5 L (1.2-5.4) K/mm3 D-Dimer 1232.79 H (0-234) ng/mlDDU Potassium (3.6-5.0) mmol/L Chloride (98-107) mmol/L Carbon Dioxide (22-30) mmol/L BUN (9-20) mg/dL Creatinine (0.8-1.3) mg/dL Glucose (75-100) mg/dL Lactate Dehydrogenase 247 H (91-180) units/L Troponin T (0.00-0.029) ng/mL C-Reactive Protein 6.00 H (0.00-1.30) mg/dL NT-Pro-B Natriuret Pep (0-450) pg/mL 09/15/21 Range/Units 05:17 WBC (4.5-11.0) K/mm3 Hgb (11.8-15.2) gm/dl Hct (35.5-45.6) % MCH (28-32) pg MCHC (32-34) % RDW (13.2-15.2) % Plt Count (140-440) K/mm3 Lymph % (Auto) (13.4-35.0) % Seg Neutrophils % (40.0-70.0) % Seg Neuts % (Manual) (40.0-70.0) % Lymphocytes % (Manual) (13.4-35.0) % Seg Neutrophils # (1.8-7.7) K/mm3 Seg Neutrophils # Man (1.8-7.7) K/mm3 Lymphocytes # (Manual) (1.2-5.4) K/mm3 D-Dimer (0-234) ng/mlDDU Potassium (3.6-5.0) mmol/L Chloride 107.1 H (98-107) mmol/L Carbon Dioxide 18 L (22-30) mmol/L BUN 59 H (9-20) mg/dL Creatinine 3.8 H (0.8-1.3) mg/dL Glucose 130 H (75-100) mg/dL Lactate Dehydrogenase (91-180) units/L Troponin T (0.00-0.029) ng/mL C-Reactive Protein (0.00-1.30) mg/dL NT-Pro-B Natriuret Pep (0-450) pg/mL - Imaging and Cardiology Chest x-ray: report reviewed, image reviewed (b/l PNA, mainly on right side) Assessment and Plan Cultures: SARS CoV2 PCR: Pending 09/14/2021 blood culture: In process A/P: 46-year-old male with HTN, CHF, CKD, peripheral arterial disease, history of aortic dissection status post repair admitted to the hospital with shortness of breath: #Bilateral pneumonia: CRP 6.0, procalcitonin 0.24, WBC 12.6. Procalcitonin elevation could be related to renal failure. Rule out CHF. COVID-19 vaccinated with Moderna, has not received booster. Last dose was in February 2021. #Acute hypoxic respiratory failure: Requiring BiPAP #CKD: he was on dialysis at one point, reports his creatinine has gradually been improving as an outpatient, about a month ago it was above 4.0. Renally adjust antibiotics. #Obesity #Reactive thrombocytosis Recs: -Empiric ceftriaxone, azithromycin -Follow-up COVID-19 PCR -Follow-up cultures -diuretics per primary Jt Rudd MD, FACP, [facility] O: [phone] F: [phone]
[2021-09-15] MEDS: CHOLECALCIFEROL (VIT D3) 1000 UNIT (25 mcg) TAB PO SCH (11:18)
[2021-09-15] MEDS: ASCORBIC ACID 500 MG TAB PO SCH ×2 (11:18→21:12)
[2021-09-15] MEDS: ZINC SULFATE 220 MG CAP PO SCH ×2 (11:18→21:12)
[2021-09-15] MEDS: AZITHROMYCIN 250 MG TAB PO SCH (11:18)
[2021-09-15] MEDS: NIFEdipine XL 60 MG TAB PO SCH (11:18)
[2021-09-15] MEDS: HEPARIN 5,000 UNIT/1 ML VIAL SUB-Q SCH ×2 (11:18→21:14)
--- NOTE | 2021-09-15 12:59 | Consultation ---
History of Present Illness Consult date: 09/15/21 Requesting physician: MARIA DOLORES DAY Reason for consult: dyspnea, hypoxemia History of present illness: 46 y/o male, obese admitted with acute respiratory failure. Currently requiring continuos bipap therapy. Per chart, patient had Pneumonia a few months ago and feels the same way he did then. He does have extensive vascular disease. Past History Past Medical History: heart failure, hypertension Past Surgical History: Other (Vascular surgery) Social history: single. denies: smoking, alcohol abuse, prescription drug abuse Family history: diabetes, hypertension Medications and Allergies Allergies Allergy/AdvReac Type Severity Reaction Status Date / Time No Known Allergies Allergy Verified 09/14/21 11:26 Home Medications Medication Instructions Recorded Confirmed Last Taken Type NIFEdipine [Procardia Xl] 60 mg PO DAILY 09/14/21 09/14/21 Unknown History hydrALAZINE [Apresoline TAB] 25 mg PO TID 09/14/21 Unknown History Labetalol HCl [Labetalol 300mg TAB] 300 mg PO TID 09/15/21 09/15/21 09/13/21 21: 00 History Active Meds: Active Medications Acetaminophen (Acetaminophen 325 Mg Tab) 650 mg PO Q4H PRN PRN Reason: Pain MILD(1-3)/Fever >100.5/ORNELAS Albuterol (Albuterol 2.5 Mg/3 Ml Nebu) 2.5 mg IH Q4HRT PRN PRN Reason: Shortness Of Breath Ascorbic Acid (Ascorbic Acid 500 Mg Tab) 500 mg PO BID [facility] Last Admin: 09/15/21 11:18 Dose: 500 mg Documented by: Azithromycin (Azithromycin 250 Mg Tab) 500 mg PO QDAY [facility] Stop: 09/18/21 10:01 Last Admin: 09/15/21 11:18 Dose: 500 mg Documented by: Cholecalciferol (Cholecalciferol (Vit D3) 1000 Unit (25 Mcg) Tab) 1,000 unit PO QDAY [facility] Last Admin: 09/15/21 11:18 Dose: 1,000 unit Documented by: Heparin Sodium (Porcine) (Heparin 5,000 Unit/1 Ml Vial) 5,000 unit SUB-Q Q12HR [facility] Last Admin: 09/15/21 11:18 Dose: 5,000 unit Documented by: Hydralazine HCl (Hydralazine 100 Mg Tab) 100 mg PO TID [facility] Last Admin: 09/15/21 11:18 Dose: 100 mg Documented by: Hydralazine HCl (Hydralazine 20 Mg/1 Ml Inj) 10 mg IV Q6HR PRN PRN Reason: Hypertension Last Admin: 09/14/21 20:54 Dose: 10 mg Documented by: Hydromorphone HCl (Hydromorphone 1 Mg/1 Ml Inj) 0.25 mg IV Q4H PRN PRN Reason: Pain, Moderate (4-6) Hydromorphone HCl (Hydromorphone 1 Mg/1 Ml Inj) 0.5 mg IV Q23H PRN PRN Reason: Pain , Severe (7-10) Ceftriaxone Sodium (Rocephin/Ns 2 Gm/100 Ml) 2 gm in 100 mls @ 200 mls/hr IV Q24H [facility]; Protocol Stop: 09/18/21 14:29 Last Admin: 09/14/21 13:34 Dose: 200 mls/hr Documented by: Lorazepam (Lorazepam 2 Mg/Ml Vial) 1 mg IV Q8H PRN PRN Reason: Agitation Methylprednisolone Sodium Succinate (Methylprednisolone Sod Succinate 40 Mg/1 Ml Inj) 40 mg IV Q8H [facility] Last Admin: 09/15/21 05:38 Dose: 40 mg Documented by: Nifedipine (Nifedipine Xl 60 Mg Tab) 60 mg PO DAILY [facility] Last Admin: 09/15/21 11:18 Dose: 60 mg Documented by: Ondansetron HCl (Ondansetron 4 Mg/2 Ml Inj) 4 mg IV Q8H PRN PRN Reason: Nausea And Vomiting Oxycodone/Acetaminophen (Oxycodone /Acetaminophen 5-325mg Tab) 1 tab PO Q16H PRN PRN Reason: Pain, Moderate (4-6) Sodium Chloride (Sodium Chloride 0.9% 10 Ml Flush Syringe) 10 ml IV BID [facility] Last Admin: 09/15/21 11:18 Dose: 10 ml Documented by: Sodium Chloride (Sodium Chloride 0.9% 10 Ml Flush Syringe) 10 ml IV PRN PRN PRN Reason: LINE FLUSH Zinc Sulfate (Zinc Sulfate 220 Mg Cap) 220 mg PO BID [facility] Last Admin: 09/15/21 11:18 Dose: 220 mg Documented by: Review of Systems All systems: negative Physical Examination Vital signs: Vital Signs Temp Pulse Resp Pulse Ox 98.4 F 113 H 16 85 12/21/21 11:21 09/14/21 11:21 09/14/21 11:21 09/14/21 11:21 General appearance: appears uncomfortable Eyes: non-icteric ENT: other (full face mask present with bipap therapy) Results - Laboratory Findings CBC and BMP: 09/15/21 05:17 09/15/21 05:17 PT/INR, D-dimer D-Dimer 1232.79 ng/mlDDU (0-234) H 09/14/21 13:23 Abnormal lab findings: Abnormal Labs 09/14/21 09/14/21 09/14/21 11:43 11:43 11:43 WBC 12.6 H Hgb 10.7 L Hct 32.8 L MCH 27 L MCHC RDW 15.4 H Plt Count 489 H Lymph % (Auto) 10.1 L Seg Neutrophils % 82.9 H Seg Neuts % (Manual) Lymphocytes % (Manual) Seg Neutrophils # 10.5 H Seg Neutrophils # Man Lymphocytes # (Manual) D-Dimer Potassium 5.1 H Chloride Carbon Dioxide 19 L BUN 47 H Creatinine 3.5 H Glucose Lactate Dehydrogenase Troponin T 0.046 H C-Reactive Protein NT-Pro-B Natriuret Pep 6001 H 09/14/21 09/14/21 09/15/21 13:23 13:23 05:17 WBC Hgb 9.6 L Hct 31.6 L MCH 26 L MCHC 30 L RDW 15.6 H Plt Count 470 H Lymph % (Auto) Seg Neutrophils % Seg Neuts % (Manual) 94.0 H Lymphocytes % (Manual) 5.0 L Seg Neutrophils # Seg Neutrophils # Man 10.0 H Lymphocytes # (Manual) 0.5 L D-Dimer 1232.79 H Potassium Chloride Carbon Dioxide BUN Creatinine Glucose Lactate Dehydrogenase 247 H Troponin T C-Reactive Protein 6.00 H NT-Pro-B Natriuret Pep 09/15/21 05:17 WBC Hgb Hct MCH MCHC RDW Plt Count Lymph % (Auto) Seg Neutrophils % Seg Neuts % (Manual) Lymphocytes % (Manual) Seg Neutrophils # Seg Neutrophils # Man Lymphocytes # (Manual) D-Dimer Potassium Chloride 107.1 H Carbon Dioxide 18 L BUN 59 H Creatinine 3.8 H Glucose 130 H Lactate Dehydrogenase Troponin T C-Reactive Protein NT-Pro-B Natriuret Pep - Diagnostic Findings Chest x-ray: image reviewed (cardiomegaly with bilateral, right worse than left alveolar infiltrates, could be edema or infection.) Assessment and Plan 46 y/o male with acute respiratory failure, worsening renal failure, elevated BP, CHF with bilateral LE edema 1. Continue bipap therapy for now, but continue to wean as tolerated for patient comfort and sats >88% 2. Follow up renal recs 3. Blood pressure control per IMS, Renal and Cards 4. Ok with current abx regimen 5. Ok with steroids for now, follow up COVId test 6. Suggest fluid restriction
--- NOTE | 2021-09-15 13:36 | Consultation ---
History of Present Illness Consult date: 09/15/21 Requesting physician: MARIA DOLORES DAY Consult reason: elevated troponin History of present illness: Patient is a 46-year-old male with a past medical history of hypertension, CHF, CKD, peripheral arterial disease, aortic dissection who presents to the ED with complaints of shortness of breath x3 days. Patient also reports fatigue and some weakness over the past 3 days. He states that every year around this time he gets pneumonia and his symptoms feel like his pneumonia returning. In the ED patient was found to have a pulse ox of 86% started on BiPAP. Chest x-ray revealed bilateral pneumonia. Patient reports being vaccinated with Covid however he states he did not have his booster shot yet. Patient denies any sick contacts. Patient denies chest pain, palpitations, fever, orthopnea, nausea, vomiting, or diaphoresis. Patient denies any exacerbating or relieving factors. Patient reports that he follows with [place] [facility] however he has not seen a optical laboratory manager in quite some time. Patient previously known to our practice. Cardiology is consulted for elevated troponins. Past History Past Medical History: heart failure, hypertension, other (aoritc dissection) Past Surgical History: Other (Vascular surgery) Social history: single. denies: smoking, alcohol abuse, prescription drug abuse Family history: diabetes, hypertension Medications and Allergies Allergies Allergy/AdvReac Type Severity Reaction Status Date / Time No Known Allergies Allergy Verified 09/14/21 11:26 Home Medications Medication Instructions Recorded Confirmed Last Taken Type NIFEdipine [Procardia Xl] 60 mg PO DAILY 09/14/21 09/14/21 Unknown History hydrALAZINE [Apresoline TAB] 25 mg PO TID 09/14/21 Unknown History Labetalol HCl [Labetalol 300mg TAB] 300 mg PO TID 09/15/21 09/15/21 09/13/21 21:00 History Active Meds: Active Medications Acetaminophen (Acetaminophen 325 Mg Tab) 650 mg PO Q4H PRN PRN Reason: Pain MILD(1-3)/Fever >100.5/ORNELAS Albuterol (Albuterol 2.5 Mg/3 Ml Nebu) 2.5 mg IH Q4HRT PRN PRN Reason: Shortness Of Breath Ascorbic Acid (Ascorbic Acid 500 Mg Tab) 500 mg PO BID [facility] Last Admin: 09/15/21 11:18 Dose: 500 mg Documented by: Azithromycin (Azithromycin 250 Mg Tab) 500 mg PO QDAY [facility] Stop: 09/18/21 10:01 Last Admin: 09/15/21 11:18 Dose: 500 mg Documented by: Cholecalciferol (Cholecalciferol (Vit D3) 1000 Unit (25 Mcg) Tab) 1,000 unit PO QDAY [facility] Last Admin: 09/15/21 11:18 Dose: 1,000 unit Documented by: Heparin Sodium (Porcine) (Heparin 5,000 Unit/1 Ml Vial) 5,000 unit SUB-Q Q12HR [facility] Last Admin: 09/15/21 11:18 Dose: 5,000 unit Documented by: Hydralazine HCl (Hydralazine 20 Mg/1 Ml Inj) 10 mg IV Q6HR PRN PRN Reason: Hypertension Last Admin: 09/14/21 20:54 Dose: 10 mg Documented by: Hydralazine HCl (Hydralazine 100 Mg Tab) 25 mg PO TID [facility] Hydromorphone HCl (Hydromorphone 1 Mg/1 Ml Inj) 0.25 mg IV Q4H PRN PRN Reason: Pain, Moderate (4-6) Hydromorphone HCl (Hydromorphone 1 Mg/1 Ml Inj) 0.5 mg IV Q23H PRN PRN Reason: Pain , Severe (7-10) Ceftriaxone Sodium (Rocephin/Ns 2 Gm/100 Ml) 2 gm in 100 mls @ 200 mls/hr IV Q24H [facility]; Protocol Stop: 09/18/21 14:29 Last Admin: 09/14/21 13:34 Dose: 200 mls/hr Documented by: Labetalol HCl (Labetalol 200 Mg Tab) 300 mg PO TID [facility] Lorazepam (Lorazepam 2 Mg/Ml Vial) 1 mg IV Q8H PRN PRN Reason: Agitation Methylprednisolone Sodium Succinate (Methylprednisolone Sod Succinate 40 Mg/1 Ml Inj) 40 mg IV Q8H [facility] Last Admin: 09/15/21 05:38 Dose: 40 mg Documented by: Nifedipine (Nifedipine Xl 60 Mg Tab) 60 mg PO DAILY [facility] Last Admin: 09/15/21 11:18 Dose: 60 mg Documented by: Ondansetron HCl (Ondansetron 4 Mg/2 Ml Inj) 4 mg IV Q8H PRN PRN Reason: Nausea And Vomiting Oxycodone/Acetaminophen (Oxycodone /Acetaminophen 5-325mg Tab) 1 tab PO Q16H PRN PRN Reason: Pain, Moderate (4-6) Sodium Chloride (Sodium Chloride 0.9% 10 Ml Flush Syringe) 10 ml IV BID [facility] Last Admin: 09/15/21 11:18 Dose: 10 ml Documented by: Sodium Chloride (Sodium Chloride 0.9% 10 Ml Flush Syringe) 10 ml IV PRN PRN PRN Reason: LINE FLUSH Zinc Sulfate (Zinc Sulfate 220 Mg Cap) 220 mg PO BID [facility] Last Admin: 09/15/21 11:18 Dose: 220 mg Documented by: Review of Systems Constitutional: fatigue, no weight loss, no weight gain, no fever, no chills Ears, nose, mouth and throat: no nasal discharge, no sinus pressure, no sinus pain Cardiovascular: shortness of breath, no chest pain, no orthopnea, no palpitations, no edema, no lightheadedness, no dyspnea on exertion Respiratory: cough, shortness of breath Gastrointestinal: no abdominal pain, no nausea, no vomiting Musculoskeletal: no neck stiffness, no neck pain, no shooting arm pain Integumentary: no rash, no pruritis, no redness Neurological: no head injury, no transient paralysis, no paralysis Psychiatric: no anxiety, no memory loss Endocrine: no cold intolerance, no heat intolerance Hematologic/Lymphatic: no easy bruising, no easy bleeding Physical Examination Vital Signs Temp Pulse Resp Pulse Ox 98.4 F 113 H 16 85 09/14/21 11:21 09/14/21 11:21 09/14/21 11:21 09/14/21 11:21 General appearance: no acute distress HEENT: Positive: EOMI Neck: Positive: trachea midline Cardiac: Positive: Reg Rate and Rhythm Lungs: Positive: Other (bilateral crackles) Neuro: Positive: Grossly Intact Abdomen: Positive: Soft Skin: Negative: Rash, Suspicious Lesions, Ulceration Extremities: Present: upper extr. pulses. Absent: edema Results 09/15/21 05:17 09/15/21 05:17 Cardiac Enzymes 09/14/21 Range/Units 13:23 Lactate Dehydrogenase 247 H (91-180) units/L CBC 09/15/21 Range/Units 05:17 WBC 10.6 (4.5-11.0) K/mm3 RBC 3.69 (3.65-5.03) M/mm3 Hgb 9.6 L (11.8-15.2) gm/dl Hct 31.6 L (35.5-45.6) % Plt Count 470 H (140-440) K/mm3 Comprehensive Metabolic Panel 09/15/21 Range/Units 05:17 Sodium 143 (137-145) mmol/L Potassium 4.3 (3.6-5.0) mmol/L Chloride 107.1 H (98-107) mmol/L Carbon Dioxide 18 L (22-30) mmol/L BUN 59 H (9-20) mg/dL Creatinine 3.8 H (0.8-1.3) mg/dL Glucose 130 H (75-100) mg/dL Calcium 9.3 (8.4-10.2) mg/dL - Imaging and Cardiology Echo: pending EKG interpretations - Telemetry EKG Rhythm: Sinus Tachycardia - EKG Sinus rhythms and dysrhythmias: sinus tachycardia Chamber hypertrophy or enlargement: left ventricular hypertro Assessment and Plan Patient is a 46-year-old male with a past medical history of hypertension, CHF, CKD, peripheral arterial disease, aortic dissection who presents to the ED with complaints of shortness of breath x3 days. Patient also reports fatigue and some weakness over the past 3 days Acute respiratory failure- pulm following PUI-Covid PCR pending PNA Sepsis-ID following Acute CHF Elevated d-dimer Minimally elevated troponins CKD- nephrology following PAD s/p aortic dissection Plan: EKG shows sinus tach rate 106 with LVH. No acute ischemic changes. Troponin minimally in setting of chronic kidney disease, volume overload, and sepsis repeat cardiac enzymes pending. Patient is currently chest pain-free and has denied any complaints of chest pain. BNP noted to be elevated. Echo pending Resume outpatient blood pressure medications: Labetalol 300 mg 3 times daily, hydralazine 25 mg 3 times daily, nifedipine 60 mg daily Due to elevated creatinine we will hold BRENDA or ARB and defer to nephrology recommendations for diuresis Due to elevated D-dimer recommend confirmatory testing to rule out PE Patient seen in conjunction with Dr. Kwong who agrees with this plan of care. We will continue to follow - Patient Problems (1) Accelerated hypertension Current Visit: Yes Status: Acute (2) Acute hypoxemic respiratory failure Current Visit: Yes Status: Acute (3) CHF exacerbation Current Visit: Yes Status: Acute (4) Obesity hypoventilation syndrome Current Visit: Yes Status: Acute (5) Pneumonia Current Visit: Yes Status: Acute (6) Sepsis Current Visit: Yes Status: Acute Qualifiers: Acute respiratory failure type: with hypoxia
[2021-09-15] MEDS: hydrALAZINE 25 MG TAB PO SCH ×2 (15:49→21:12)
[2021-09-15] MEDS: cefTRIAXone/NS 2 GM/100 ML 2 GM/100 ML BAG IV SCH (15:50)
[2021-09-16] MEDS: methylPREDNISolone Sod Succinate 40 MG/1 ML INJ IV SCH (05:47)
[2021-09-16 06:32] LABS: Hematocrit 29.1 % (35.5-45.6); Mean Corpuscular HGB Conc 31 % (32-34); Mean Corpuscular Volume 85 fl (84-94); Platelet Count 440 K/mm3 (140-440); Red Blood Count 3.43 M/mm3 (3.65-5.03); Red Cell Distribution Width 15.7 % (13.2-15.2)
[2021-09-16 06:42] LABS: Calcium 9.2 mg/dL (8.4-10.2)
[2021-09-16 06:49] VITALS: BP 146/88
[2021-09-16] MEDS: hydrALAZINE 25 MG TAB PO SCH (08:00)
[2021-09-16] MEDS: NIFEdipine XL 60 MG TAB PO SCH (09:40)
[2021-09-16] MEDS: ASCORBIC ACID 500 MG TAB PO SCH (09:41)
[2021-09-16] MEDS: AZITHROMYCIN 250 MG TAB PO SCH (09:42)
[2021-09-16] MEDS: ZINC SULFATE 220 MG CAP PO SCH (09:42)
[2021-09-16] MEDS: CHOLECALCIFEROL (VIT D3) 1000 UNIT (25 mcg) TAB PO SCH (09:42)
[2021-09-16] MEDS: HEPARIN 5,000 UNIT/1 ML VIAL SUB-Q SCH (09:43)
--- NOTE | 2021-09-16 10:11 | Discharge Summary ---
Providers - Providers Date of Admission: 09/14/21 12:57 Date of discharge: 09/16/21 Attending physician: CLARISSA ROCK 09/14/21 20:36 Consult to Physician [CONS] Routine Comment: Consulting Provider: DELROY HIDALGO Physician Instructions: Reason For Exam: pui 09/15/21 08:14 Consult to Physician [CONS] Routine Comment: Consulting Provider: LAMONT ADRIAN Physician Instructions: Reason For Exam: CKD 09/15/21 08:15 Consult to Physician [CONS] Routine Comment: Consulting Provider: GLADYS APARICIO Physician Instructions: Reason For Exam: respiratory failure with hypoxia Consult to Physician [CONS] Routine Comment: Consulting Provider: DORINDA REDDY Physician Instructions: Reason For Exam: type 2 nstemi Primary care physician: COIL SHAPER Hospitalization Condition: Serious Disposition: 01 HOME / SELF CARE / HOMELESS Exam - Constitutional Vitals: Temp Pulse Resp BP Pulse Ox 97.7 F 94 H 18 146/88 94 09/16/21 05:14 09/16/21 05:14 09/16/21 05:14 09/16/21 05:14 09/16/21 05:14 Plan Follow up with: PRIMARY CARE, [Primary Care Provider] - 3-5 Days
--- NOTE | 2021-09-16 10:38 | Electrocardiograph Report ---
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
--- NOTE | 2021-09-16 13:10 | Progress Note ---
Assessment and Plan Patient is a 46-year-old male with a past medical history of hypertension, CHF, CKD, peripheral arterial disease, aortic dissection who presents to the ED with complaints of shortness of breath x3 days. Patient also reports fatigue and some weakness over the past 3 days Acute respiratory failure- pulm following PUI-Covid PCR pending PNA Sepsis-ID following Acute CHF Elevated d-dimer Minimally elevated troponins CKD- nephrology following PAD s/p aortic dissection Plan: Patient refused echocardiogram. 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 He stresses that he will his only concern with treating his pneumonia. Discussed the importance of patient's condition, risk, and recommendations for follow-up. Patient verbalized understanding Patient is currently chest pain-free and has denied any complaints of chest pain. Continue outpatient blood pressure medications: Labetalol 300 mg 3 times daily, hydralazine 25 mg 3 times daily, nifedipine 60 mg daily Due to elevated creatinine we will hold BRENDA or ARB and defer to nephrology recommendations for diuresis Cardiology will sign off Patient seen in conjunction with Dr. Kwong who agrees with this plan of care. - Patient Problems (1) Accelerated hypertension Status: Acute (2) Acute hypoxemic respiratory failure Status: Acute (3) CHF exacerbation Status: Acute (4) Obesity hypoventilation syndrome Status: Acute (5) Pneumonia Status: Acute (6) Sepsis Status: Acute Qualifiers: Acute respiratory failure type: with hypoxia Subjective Date of service: 09/16/21 Principal diagnosis: PNA Interval history: Patient walking around room. In no acute distress. Sinus 98 on monitor Objective Vital Signs Temp Pulse Resp BP BP Pulse Ox 09/16/21 10:00 94 09/16/21 05:14 97.7 F 94 H 18 146/88 94 09/16/21 00:27 100 H 20 97 09/15/21 23:00 18 96 09/15/21 22:06 98.1 F 94 H 18 154/93 90 09/15/21 21:12 100 H 161/88 09/15/21 21:10 100 H 161/88 09/15/21 21:06 98.6 F 100 H 19 161/88 96 09/15/21 20:00 100 09/15/21 18:25 98.2 F 102 H 18 152/89 96 09/15/21 16:00 111 H 20 165/99 96 09/15/21 13:30 98.2 F 111 H 20 165/99 96 - Physical Examination General: No Apparent Distress HEENT: Positive: EOMI Neck: Positive: trachea midline Cardiac: Positive: Reg Rate and Rhythm Lungs: Positive: Decreased Breath Sounds Neuro: Positive: Grossly Intact Abdomen: Positive: Soft Skin: Negative: Rash, Suspicious Lesions, Ulceration Extremities: Present: upper extr. pulses. Absent: edema - Labs and Meds CBC 09/16/21 Range/Units 06:02 WBC 14.3 H (4.5-11.0) K/mm3 RBC 3.43 L (3.65-5.03) M/mm3 Hgb 9.0 L (11.8-15.2) gm/dl Hct 29.1 L (35.5-45.6) % Plt Count 440 (140-440) K/mm3 Comprehensive Metabolic Panel 09/16/21 Range/Units 06:02 Sodium 140 (137-145) mmol/L Potassium 4.4 (3.6-5.0) mmol/L Chloride 104.2 (98-107) mmol/L Carbon Dioxide 18 L (22-30) mmol/L BUN 78 H (9-20) mg/dL Creatinine 3.8 H (0.8-1.3) mg/dL Glucose 136 H (75-100) mg/dL Calcium 9.2 (8.4-10.2) mg/dL - Imaging and Cardiology Echo: pending - Telemetry EKG Rhythm: Sinus Rhythm - EKG Sinus rhythms and dysrhythmias: sinus rhythm Chamber hypertrophy or enlargement: left ventricular hypertro
[2021-09-16] MEDS ORDERED: NON-FORMULARY EACH (Labetalol Hcl [Labetalol 300mg Tab] 300 MG Tablet) PO SCH (14:00)
== END 2021-09-16 11:54 | disposition home or self-care (01) | DRG 871 ==
LOC: ED 10:48 → 3A 12:57
PROVIDERS: ADMIT Internal Medicine; ATTEND Internal Medicine
PROC: 5A09457 Assistance with Respiratory Ventilation, 24-96 Consecutive Hours, Continuous Positive Airway Pressure (ICD-10-PCS; principal; 2021-09-14)
DX: A41.9 Sepsis, unspecified organism (principal); J96.01 Acute respiratory failure with hypoxia; J18.9 Pneumonia, unspecified organism; E66.2 Morbid (severe) obesity with alveolar hypoventilation; I13.0 Hypertensive heart and chronic kidney disease with heart failure and stage 1 through stage 4 chronic kidney disease, or unspecified chronic kidney disease; N18.4 Chronic kidney disease, stage 4 (severe); N17.9 Acute kidney failure, unspecified; Z20.822 Contact with and (suspected) exposure to COVID-19; I50.9 Heart failure, unspecified; Z83.3 Family history of diabetes mellitus; Z82.49 Family history of ischemic heart disease and other diseases of the circulatory system; E87.5 Hyperkalemia
CPT/HCPCS: 36415; 71046; 80048; 80053; 80061; 82140; 83615; 83880; 84145; 84484; 85007; 85025; 85027; 85379; 86140; 87040; 87400; 93005; 94660; 94760; 99285; G0378; J3490; J0360; J0456; J0696; J1644; J1940; J2920; U0003

== ENCOUNTER 2022-01-09 19:33 | Inpatient (IN) | payer SELFPAY ==
--- NOTE | 2022-01-10 02:05 | Emergency Department Report ---
<ANALYDAMON - Last Filed: 01/10/22 02:02> ED General Adult HPI - General Chief complaint: Extremity Problem,Nontraumatic Stated complaint: SWELLING IN BOTH LEGS Time Seen by Provider: 01/10/22 01:40 Source: patient Mode of arrival: Ambulatory Limitations: No Limitations - History of Present Illness Initial comments: 46-year-old F [place] female previous [place] patient with a known history of CHF, hypertension, 2 months status post aortic tear with a stent placement presents emergency department complaining of a 1 week history of progressive worsening shortness of breath associated with bilateral lower extremity swelling which may be due to him missing his medications. He also utilizes nifedipine for the hypertension and feels that may be a culprit as well although his compliance has been wavering due to insurance issues as of late. Reports no hemoptysis no hematemesis hematochezia, no nausea, no vomiting, no headache, blurred vision, fevers, chills, sweats He also reports a history of renal insufficiency which is being followed by Dr. Jhaveri of nephrology is unsure of the molded candles wicker name but is a [place] physician had a echo done 6 months ago which she reports is of normal variant - Related Data Previous Rx's Medication Instructions Recorded Last Taken Type Labetalol HCl [Labetalol 300mg TAB] 300 mg PO TID #90 09/16/21 Unknown Rx NIFEdipine [Procardia Xl] 60 mg PO DAILY #30 09/16/21 Unknown Rx hydrALAZINE [Apresoline TAB] 50 mg PO TID #90 tab 09/16/21 Unknown Rx Allergies Allergy/AdvReac Type Severity Reaction Status Date / Time No Known Allergies Allergy Verified 01/10/22 08:24 ED Review of Systems Comment: All other systems reviewed and negative ED Past Medical Hx - Past Medical History Hx Hypertension: Yes Hx Congestive Heart Failure: Yes Hx Diabetes: No Hx Renal Disease: Yes (History of acute renal failure) Hx Sickle Cell Disease: No Hx Asthma: No Hx COPD: No Hx HIV: No Additional medical history: aortic disection - Surgical History Additional Surgical History: Aortic dissection repair [place] September 2020 - Social History Smoking Status: Former Smoker - Medications Home Medications: Home Medications Medication Instructions Recorded Confirmed Last Taken Type Labetalol HCl [Labetalol 300mg TAB] 300 mg PO TID #90 09/16/21 01/10/22 Unknown Rx NIFEdipine [Procardia Xl] 60 mg PO DAILY #30 09/16/21 01/10/22 Unknown Rx hydrALAZINE [Apresoline TAB] 50 mg PO TID #90 tab 09/16/21 01/10/22 Unknown Rx ED Physical Exam - General Limitations: No Limitations General appearance: alert, in no apparent distress - Head Head exam: Present: atraumatic, normocephalic - Eye Eye exam: Present: normal appearance - ENT ENT exam: Present: mucous membranes moist - Neck Neck exam: Present: normal inspection - Respiratory Respiratory exam: Present: normal lung sounds bilaterally. Absent: respiratory distress - Cardiovascular Cardiovascular Exam: Present: regular rate, normal rhythm. Absent: systolic murmur, diastolic murmur, rubs, gallop - GI/Abdominal GI/Abdominal exam: Present: soft, normal bowel sounds - Rectal Rectal exam: Present: deferred - Extremities Exam Extremities exam: Present: normal inspection - Back Exam Back exam: Present: normal inspection - Neurological Exam Neurological exam: Present: alert, oriented X3 - Psychiatric Psychiatric exam: Present: normal affect, normal mood - Skin Skin exam: Present: warm, dry, intact, normal color. Absent: rash ED Disposition Clinical Impression: Accelerated hypertension, Acute kidney injury superimposed on chronic kidney disease, Elevated troponin, History of abdominal aortic aneurysm (AAA) repair CHF exacerbation Qualifiers: Heart failure type: unspecified Qualified Code(s): I50.9 - Heart failure, unspecified Disposition: 02 [facility]M [facility] Condition: Stable Instructions: Hypertension (ED) <SIGRID BHATIA - Last Filed: 01/10/22 09:27> ED General Adult HPI - General PUI?: No - History of Present Illness Initial comments: For see patient at shift change. The nurse had told the overnight provider that the patient went AMA when in fact he had not. On exam the patient is tachypneic, short of breath and hypertensive. Patient reports that in September he had his ascending aorta repaired by Dr. Valero at [facility], [place]. He states at that time he was diagnosed with heart failure. He also states that at that time he had an RAHEL and required HD for 3 months. Then he got renal recovery and he reports his creatinine to be 3.5. He does not have a primary care physician. He is on hydralazine, labetalol and Cardizem at home but he reports he has not taken it in a few days. Is unclear to me when the last time as he took it. Because he has told me a couple weeks and then he told a nurse in a couple days. His significant other is going to bring the bottles from home. Patient was brought back to fast-track, vital signs were rechecked and patient interviewed. He is short of breath with just speaking. His heart rate is in the 90s. And his map is 160. Labs reviewed. BNP is elevated. Trop was elevated in the setting of the acute on chronic kidney disease. Prior to me seeing the patient the patient had been given p.o. labetalol and Lasix 40 mg IV x1. He has had some response to the Lasix as far as urine output. He states that the Lasix did not help with the shortness of breath. Patient staffed with Dr. Verma -: Gradual Consistency: constant Improves with: immobilization Worsens with: movement Associated Symptoms: denies other symptoms, chest pain, shortness of breath. denies: confusion, cough, diaphoresis, fever/chills, headaches, loss of appetite, malaise, nausea/vomiting, rash, seizure, syncope, weakness Treatments Prior to Arrival: none ED Review of Systems ROS: Stated complaint: SWELLING IN BOTH LEGS Other details as noted in HPI ED Past Medical Hx - Past Medical History Hx CVA: No Hx Heart Attack/AMI: No Hx Deep Vein Thrombosis: No Hx Pulmonary Embolism: No Hx GERD: No Hx Liver Disease: No Hx of Cancer: No Hx Arthritis: No Hx Headaches / Migraines: No Hx Seizures: No Hx Kidney Stones: No Hx Psychiatric Treatment: No Hx Tuberculosis: No Hx Dementia: No Hx HIV: No - Surgical History Past Surgical History?: Yes - Social History Substance Use Type: None ED Physical Exam - General General appearance: in no apparent distress, anxious - Eye Eye exam: Present: PERRL, EOMI - Respiratory Respiratory exam: Present: rales (Bilateral). Absent: normal lung sounds bilaterally - Cardiovascular Cardiovascular Exam: Present: tachycardia - GI/Abdominal GI/Abdominal exam: Present: distended - Extremities Exam Extremities exam: Present: full ROM, pedal edema (Bilateral lower extremity edema, pitting up to his knees). Absent: normal inspection - Psychiatric Psychiatric exam: Present: anxious ED Course Vital Signs 01/09/22 01/10/22 01/10/22 20:35 04:47 05:33 Temperature 98.4 F Pulse Rate 92 H 94 H Respiratory 18 12 Rate Blood Pressure 219/145 Blood Pressure 216/143 205/134 [Right] O2 Sat by Pulse 96 100 Oximetry 01/10/22 01/10/22 01/10/22 06:09 06:17 08:17 Temperature Pulse Rate 95 H 84 Respiratory Rate Blood Pressure 209/138 209/138 Blood Pressure [Right] O2 Sat by Pulse 97 98 Oximetry 01/10/22 01/10/22 08:30 08:59 Temperature Pulse Rate Respiratory Rate Blood Pressure 204/138 Blood Pressure [Right] O2 Sat by Pulse 94 98 Oximetry ED Medical Decision Making - Lab Data Result diagrams: 01/10/22 02:09 01/10/22 02:09 - EKG Data EKG shows normal: sinus rhythm - EKG Data When compared to previous EKG there are: no significant change Interpretation: no acute changes - Radiology Data Radiology results: report reviewed, image reviewed See report - Medical Decision Making Lab Results 01/10/22 01/10/22 01/10/22 Range/Units 02:09 02:09 02:09 WBC 6.8 (4.5-11.0) K/mm3 RBC 4.04 (3.65-5.03) M/mm3 Hgb 10.0 L (11.8-15.2) gm/dl Hct 32.0 L (35.5-45.6) % MCV 79 L (84-94) fl MCH 25 L (28-32) pg MCHC 31 L (32-34) % RDW 18.7 H (13.2-15.2) % Plt Count 282 (140-440) K/mm3 Lymph % (Auto) 21.7 (13.4-35.0) % [place] % (Auto) 6.5 (0.0-7.3) % Eos % (Auto) 11.6 H (0.0-4.3) % Baso % (Auto) 1.5 (0.0-1.8) % Lymph # (Auto) 1.5 (1.2-5.4) K/mm3 [place] # (Auto) 0.4 (0.0-0.8) K/mm3 Eos # (Auto) 0.8 H (0.0-0.4) K/mm3 Baso # (Auto) 0.1 (0.0-0.1) K/mm3 Seg Neutrophils % 58.7 (40.0-70.0) % Seg Neutrophils # 4.0 (1.8-7.7) K/mm3 Sodium 142 (137-145) mmol/L Potassium 3.2 L (3.6-5.0) mmol/L Chloride 101.3 (98-107) mmol/L Carbon Dioxide 21 L (22-30) mmol/L Anion Gap 23 mmol/L BUN 70 H (9-20) mg/dL Creatinine 6.0 H (0.8-1.3) mg/dL Estimated GFR 12 ml/min BUN/Creatinine Ratio 12 % Glucose 104 H (75-100) mg/dL Calcium 9.3 (8.4-10.2) mg/dL Total Bilirubin 0.70 (0.1-1.2) mg/dL AST 14 (5-40) units/L ALT 16 (7-56) units/L Alkaline Phosphatase 97 (35-129) units/L Troponin T 0.053 H (0.00-0.029) ng/mL NT-Pro-B Natriuret Pep 41270 H (0-450) pg/mL Total Protein 7.0 (6.3-8.2) g/dL Albumin 4.5 (3.9-5) g/dL Albumin/Globulin Ratio 1.8 % Triglycerides 65 (2-149) mg/dL Cholesterol 121 (50-199) mg/dL LDL Cholesterol Direct 78 (50-130) mg/dL HDL Cholesterol 35 L (40-59) mg/dL Cholesterol/HDL Ratio 3.45 % Urine Color (Yellow) Urine Turbidity (Clear) Urine pH (5.0-7.0) Ur Specific [place] (1.003-1.030) Urine Protein (Negative) mg/dL Urine Glucose (UA) (Negative) mg/dL Urine Ketones (Negative) mg/dL Urine Blood (Negative) Urine Nitrite (Negative) Urine Bilirubin (Negative) Urine Urobilinogen (<2.0) mg/dL Ur Leukocyte Esterase (Negative) Urine WBC (Auto) Urine RBC (Auto) (0.0-6.0) /HPF U Epithel Cells (Auto) (0-13.0) /HPF 01/10/22 Range/Units 08:24 WBC (4.5-11.0) K/mm3 RBC (3.65-5.03) M/mm3 Hgb (11.8-15.2) gm/dl Hct (35.5-45.6) % MCV (84-94) fl MCH (28-32) pg MCHC (32-34) % RDW (13.2-15.2) % Plt Count (140-440) K/mm3 Lymph % (Auto) (13.4-35.0) % [place] % (Auto) (0.0-7.3) % Eos % (Auto) (0.0-4.3) % Baso % (Auto) (0.0-1.8) % Lymph # (Auto) (1.2-5.4) K/mm3 [place] # (Auto) (0.0-0.8) K/mm3 Eos # (Auto) (0.0-0.4) K/mm3 Baso # (Auto) (0.0-0.1) K/mm3 Seg Neutrophils % (40.0-70.0) % Seg Neutrophils # (1.8-7.7) K/mm3 Sodium (137-145) mmol/L Potassium (3.6-5.0) mmol/L Chloride (98-107) mmol/L Carbon Dioxide (22-30) mmol/L Anion Gap mmol/L BUN (9-20) mg/dL Creatinine (0.8-1.3) mg/dL Estimated GFR ml/min BUN/Creatinine Ratio % Glucose (75-100) mg/dL Calcium (8.4-10.2) mg/dL Total Bilirubin (0.1-1.2) mg/dL AST (5-40) units/L ALT (7-56) units/L Alkaline Phosphatase (35-129) units/L Troponin T (0.00-0.029) ng/mL NT-Pro-B Natriuret Pep (0-450) pg/mL Total Protein (6.3-8.2) g/dL Albumin (3.9-5) g/dL Albumin/Globulin Ratio % Triglycerides (2-149) mg/dL Cholesterol (50-199) mg/dL LDL Cholesterol Direct (50-130) mg/dL HDL Cholesterol (40-59) mg/dL Cholesterol/HDL Ratio % Urine Color Straw (Yellow) Urine Turbidity Clear (Clear) Urine pH 6.0 (5.0-7.0) Ur Specific [place] 1.006 (1.003-1.030) Urine Protein 100 mg/dl (Negative) mg/dL Urine Glucose (UA) Neg (Negative) mg/dL Urine Ketones Neg (Negative) mg/dL Urine Blood Sm (Negative) Urine Nitrite Neg (Negative) Urine Bilirubin Neg (Negative) Urine Urobilinogen < 2.0 (<2.0) mg/dL Ur Leukocyte Esterase Neg (Negative) Urine WBC (Auto) Not Reportable Urine RBC (Auto) 1.0 (0.0-6.0) /HPF U Epithel Cells (Auto) < 1.0 (0-13.0) /HPF Vital Signs 01/09/22 01/10/22 01/10/22 20:35 04:47 05:33 Temperature 98.4 F Pulse Rate 92 H 94 H Respiratory 18 12 Rate Blood Pressure 219/145 Blood Pressure 216/143 205/134 [Right] O2 Sat by Pulse 96 100 Oximetry 01/10/22 01/10/22 01/10/22 06:09 06:17 08:17 Temperature Pulse Rate 95 H 84 Respiratory Rate Blood Pressure 209/138 209/138 Blood Pressure [Right] O2 Sat by Pulse 97 98 Oximetry 01/10/22 01/10/22 08:30 08:59 Temperature Pulse Rate Respiratory Rate Blood Pressure 204/138 Blood Pressure [Right] O2 Sat by Pulse 94 98 Oximetry In the emergency room patient received p.o. labetalol and 40 of IV Lasix. He remained hypertensive. A labetalol drip was started. Discussed with patient and his significant other his lab findings and our concerns. Case staffed with Dr.Alim Dr. Smart, [facility] [place]. Patient will be admitted to ICU for hypertensive emergency, acute on chronic kidney disease, and acute on chronic heart failure. He needs diuresis and blood pressure management. Consult to cardiology and nephrology have been placed. - Differential Diagnosis Hypertensive emergency with acute on chronic heart failure and a/c renal Critical care attestation.: If time is entered above; I have spent that time in minutes in the direct care of this critically ill patient, excluding procedure time. ED Disposition Is pt being admited?: Yes Does the pt Need Aspirin: Yes Time of Disposition: 08:35
[2022-01-10 02:25] LABS: Basophils # (Auto) 0.1 K/mm3 (0.0-0.1); Basophils % (Auto) 1.5 % (0.0-1.8); Eosinophils # (Auto) 0.8 K/mm3 (0.0-0.4); Eosinophils % (Auto) 11.6 % (0.0-4.3); Lymphocytes # (Auto) 1.5 K/mm3 (1.2-5.4); Lymphocytes % (Auto) 21.7 % (13.4-35.0); Mean Corpuscular HGB Conc 31 % (32-34); Mean Corpuscular Volume 79 fl (84-94); Monocytes # (Auto) 0.4 K/mm3 (0.0-0.8); Monocytes % (Auto) 6.5 % (0.0-7.3); Platelet Count 282 K/mm3 (140-440); Red Blood Count 4.04 M/mm3 (3.65-5.03); Red Cell Distribution Width 18.7 % (13.2-15.2)
--- NOTE | 2022-01-10 02:30 | XRay Report ---
CHEST 2 VIEWS INDICATION / CLINICAL INFORMATION: sob. COMPARISON: Chest x-ray 09/14/2021 FINDINGS: SUPPORT DEVICES: Stable positioning of thoracic aorta endostent. HEART / MEDIASTINUM: Mild cardiomegaly, stable. LUNGS / PLEURA: No significant pulmonary or pleural abnormality. No pneumothorax. BONES: No significant osseous abnormality. ADDITIONAL FINDINGS: No significant additional findings. IMPRESSION: 1. No active cardiopulmonary disease. Signer Name: Julian Harper II, MD Signed: 01/10/2022 2:26 AM Workstation Name: [id number]
[2022-01-10 02:53] LABS: Albumin 4.5 g/dL (3.9-5); Calcium 9.3 mg/dL (8.4-10.2)
[2022-01-10 03:14] LABS: Chol/HDL Ratio 3.45 %
[2022-01-10] MEDS ORDERED: FUROSEMIDE 40 MG/4 ML INJ IV ONE (04:23)
[2022-01-10] MEDS ORDERED: cloNIDine 0.2 MG TAB PO STA (06:06)
[2022-01-10] MEDS ORDERED: ASPIRIN 81 MG TAB CHEW PO ONE (08:35)
[2022-01-10] MEDS ORDERED: labetaloL 200 MG in DEXTROSE 5% IN WATER 160 ML IV ONE (09:00)
[2022-01-10 09:10] LABS: Bilirubin,Urine NEG (Negative); Blood,Urine SM (Negative); Color,Urine Straw (Yellow); Urobilinogen,Urine < 2.0 mg/dL (<2.0)
[2022-01-10] MEDS ORDERED: POTASSIUM CHLORIDE ER 20 MEQ TAB PO ONE (09:16)
--- NOTE | 2022-01-10 09:43 | History and Physical Report ---
History of Present Illness Date of examination: 01/10/22 Date of admission: 01/10/22 Chief complaint: Shortness of breath or lower extremity swelling History of present illness: Patient is a 46-year-old male with Obesity, HTN, CHF, CKD, PAD S/P Aortic Dissection presents to ED for evaluation. Reports that he had a history of post aortic tear about 2 months ago and had a stent placed at [place] presents to the ER today with complaint of 1 week history of progressive worsening shortness of breath associated with bilateral lower extremity swelling. He states that on reviewing his medication he stopped the nifedipine which she felt was the culprit of his swelling. He reported putting a call to his physician but did not hear back from them. He otherwise reports compliance with all his other medication also states that he was not placed on a water pill. It appears he was asked this in the ER On further evaluation in the ER he is noted to have a systolic blood pressure in the 240s with diastolic in the 120s and is being placed on labetalol drip and we are requested to admit the patient for further evaluation.. On examination the patient. He denies any fever nausea vomiting or diarrhea. He reports that he did have some renal dysfunction and was on dialysis for 1 year after his initial aortic dissection repair he remembers his last creatinine being 3.6 and today it is 6. Nephrology has been consulted as well as nut sorter from the ED. Past History Past Medical History: hypertension, hyperlipidemia, renal failure Past Surgical History: abd. aortic aneurysm repair Social history: full code. denies: smoking, alcohol abuse, prescription drug abuse, IV drug use Family history: no significant family history Medications and Allergies Allergies Allergy/AdvReac Type Severity Reaction Status Date / Time No Known Allergies Allergy Verified 01/10/22 08:24 Home Medications Medication Instructions Recorded Confirmed Last Taken Type Labetalol HCl [Labetalol 300mg TAB] 300 mg PO TID #90 09/16/21 01/10/22 Unknown Rx NIFEdipine [Procardia Xl] 60 mg PO DAILY #30 09/16/21 01/10/22 Unknown Rx hydrALAZINE [Apresoline TAB] 50 mg PO TID #90 tab 09/16/21 01/10/22 Unknown Rx Active Meds: Active Medications Acetaminophen (Acetaminophen 325 Mg Tab) 650 mg PO Q6H PRN PRN Reason: Pain MILD(1-3)/Fever >100.5/ORNELAS Albuterol (Albuterol 2.5 Mg/3 Ml Nebu) 2.5 mg IH Q3HRT PRN PRN Reason: Shortness Of Breath Famotidine (Famotidine 20 Mg/2 Ml Inj) 20 mg IV BID [facility] Heparin Sodium (Porcine) (Heparin 5,000 Unit/1 Ml Vial) 5,000 unit SUB-Q Q8HR [facility] Labetalol HCl 200 mg/ Dextrose 200 mls @ 120 mls/hr IV ONCE ONE; Protocol Stop: 01/10/22 10:39 Morphine Sulfate (Morphine 2 Mg/1 Ml Inj) 2 mg IV Q4H PRN PRN Reason: Pain, Moderate (4-6) Naloxone HCl (Naloxone 0.4 Mg/1 Ml Inj) 0.1 mg IV Q2MIN PRN PRN Reason: Res Rate </= 8 or 02 SAT < 92% Ondansetron HCl (Ondansetron 4 Mg/2 Ml Inj) 4 mg IV Q4H PRN PRN Reason: Nausea And Vomiting Senna (Sennosides 8.6 Mg Tab) 8.6 mg PO BID [facility] Sodium Chloride (Sodium Chloride 0.9% 10 Ml Flush Syringe) 10 ml IV BID [facility] Sodium Chloride (Sodium Chloride 0.9% 10 Ml Flush Syringe) 10 ml IV PRN PRN PRN Reason: LINE FLUSH Review of Systems Constitutional: weight gain, no fever, no chills, no sweats, no night sweats, no fatigue, no weakness, no malaise, no lethargy Cardiovascular: orthopnea, edema, shortness of breath, dyspnea on exertion, paroxysmal nocturnal dyspnea, high blood pressure, leg edema, no chest pain, no palpitations, no rapid/irregular heart beat, no syncope, no lightheadedness Respiratory: shortness of breath, dyspnea on exertion, no cough, no cough with sputum, no excessive sputum, no hemoptysis, no congestion, no wheezing, no pleurisy, no pain, no pain on inspiration, no snoring, no sleep apnea, no respiratory infections, no home oxygen Gastrointestinal: no nausea, no vomiting, no diarrhea, no constipation Exam - Physical Exam Narrative exam: VITAL SIGNS: Reviewed. GENERAL: The patient appears normally developed, obese, appears uncomfortable vital signs as documented. HEAD: No signs of head trauma. EYES: Pupils are equal. Extraocular motions intact. EARS: Hearing grossly intact. MOUTH: Oropharynx is normal. NECK: No adenopathy, no JVD. CHEST: Chest with mild crackles at the bases breath sounds bilaterally. No wheezes CARDIAC: Regular rate and rhythm. S1 and S2, without murmurs, gallops, or rubs. VASCULAR: +1 pitting edema. Peripheral pulses normal and equal in all extremities. ABDOMEN: Soft, non tender and non distended. No rebound or guarding, and no masses palpated. Bowel Sounds normal. MUSCULOSKELETAL: Good range of motion of all major joints. Extremities without clubbing, cyanosis. +1 pitting edema bilateral lower extremity. NEUROLOGIC EXAM: Alert and oriented x 3 No focal sensory or strength deficits. Speech normal. Follows commands. PSYCHIATRIC: Mood normal. SKIN: detail exam as documented in skin assessment - Constitutional Vitals: Temp Pulse Resp BP Pulse Ox 98.4 F 84 12 204/138 98 01/09/22 20:35 01/10/22 06:17 01/10/22 05:33 01/10/22 08:30 01/10/22 08:59 HEART Score - HEART Score Troponin: Troponin T 0.053 ng/mL (0.00-0.029) H 01/10/22 02:09 Results - Labs CBC & Chem 7: 01/10/22 02:09 01/10/22 02:09 Labs: Laboratory Last Values WBC 6.8 K/mm3 (4.5-11.0) 01/10/22 02:09 RBC 4.04 M/mm3 (3.65-5.03) 01/10/22 02:09 Hgb 10.0 gm/dl (11.8-15.2) L 01/10/22 02:09 Hct 32.0 % (35.5-45.6) L 01/10/22 02:09 MCV 79 fl (84-94) L 01/10/22 02:09 MCH 25 pg (28-32) L 01/10/22 02:09 MCHC 31 % (32-34) L 01/10/22 02:09 RDW 18.7 % (13.2-15.2) H 01/10/22 02:09 Plt Count 282 K/mm3 (140-440) 01/10/22 02:09 Lymph % (Auto) 21.7 % (13.4-35.0) 01/10/22 02:09 [place] % (Auto) 6.5 % (0.0-7.3) 01/10/22 02:09 Eos % (Auto) 11.6 % (0.0-4.3) H 01/10/22 02:09 Baso % (Auto) 1.5 % (0.0-1.8) 01/10/22 02:09 Lymph # (Auto) 1.5 K/mm3 (1.2-5.4) 01/10/22 02:09 [place] # (Auto) 0.4 K/mm3 (0.0-0.8) 01/10/22 02:09 Eos # (Auto) 0.8 K/mm3 (0.0-0.4) H 01/10/22 02:09 Baso # (Auto) 0.1 K/mm3 (0.0-0.1) 01/10/22 02:09 Seg Neutrophils % 58.7 % (40.0-70.0) 01/10/22 02:09 Seg Neutrophils # 4.0 K/mm3 (1.8-7.7) 01/10/22 02:09 Sodium 142 mmol/L (137-145) 01/10/22 02:09 Potassium 3.2 mmol/L (3.6-5.0) L 01/10/22 02:09 Chloride 101.3 mmol/L (98-107) 01/10/22 02:09 Carbon Dioxide 21 mmol/L (22-30) L 01/10/22 02:09 Anion Gap 23 mmol/L 01/10/22 02:09 BUN 70 mg/dL (9-20) H 01/10/22 02:09 Creatinine 6.0 mg/dL (0.8-1.3) H 01/10/22 02:09 Estimated GFR 12 ml/min 01/10/22 02:09 BUN/Creatinine Ratio 12 % 01/10/22 02:09 Glucose 104 mg/dL (75-100) H 01/10/22 02:09 Calcium 9.3 mg/dL (8.4-10.2) 01/10/22 02:09 Total Bilirubin 0.70 mg/dL (0.1-1.2) 01/10/22 02:09 AST 14 units/L (5-40) 01/10/22 02:09 ALT 16 units/L (7-56) 01/10/22 02:09 Alkaline Phosphatase 97 units/L (35-129) 01/10/22 02:09 Troponin T 0.053 ng/mL (0.00-0.029) H 01/10/22 02:09 NT-Pro-B Natriuret Pep 15233 pg/mL (0-450) H 01/10/22 02:09 Total Protein 7.0 g/dL (6.3-8.2) 01/10/22 02:09 Albumin 4.5 g/dL (3.9-5) 01/10/22 02:09 Albumin/Globulin Ratio 1.8 % 01/10/22 02:09 Triglycerides 65 mg/dL (2-149) 01/10/22 02:09 Cholesterol 121 mg/dL (50-199) 01/10/22 02:09 LDL Cholesterol Direct 78 mg/dL (50-130) 01/10/22 02:09 HDL Cholesterol 35 mg/dL (40-59) L 01/10/22 02:09 Cholesterol/HDL Ratio 3.45 % 01/10/22 02:09 Urine Color Straw (Yellow) 01/10/22 08:24 Urine Turbidity Clear (Clear) 01/10/22 08:24 Urine pH 6.0 (5.0-7.0) 01/10/22 08:24 Ur Specific [place] 1.006 (1.003-1.030) 01/10/22 08:24 Urine Protein 100 mg/dl mg/dL (Negative) 01/10/22 08:24 Urine Glucose (UA) Neg mg/dL (Negative) 01/10/22 08:24 Urine Ketones Neg mg/dL (Negative) 01/10/22 08:24 Urine Blood Sm (Negative) 01/10/22 08:24 Urine Nitrite Neg (Negative) 01/10/22 08:24 Urine Bilirubin Neg (Negative) 01/10/22 08:24 Urine Urobilinogen < 2.0 mg/dL (<2.0) 01/10/22 08:24 Ur Leukocyte Esterase Neg (Negative) 01/10/22 08:24 Urine WBC (Auto) Not Reportable 01/10/22 08:24 Urine RBC (Auto) 1.0 /HPF (0.0-6.0) 01/10/22 08:24 U Epithel Cells (Auto) < 1.0 /HPF (0-13.0) 01/10/22 08:24 Assessment and Plan Assessment and plan: Patient is a 46-year-old male with Obesity, HTN, CHF, CKD, PAD S/P Aortic Dissection presents to ED for evaluation. Reports that he had a history of post aortic tear about 2 months ago and had a stent placed at [place] presents to the ER today with complaint of 1 week history of progressive worsening shortness of breath associated with bilateral lower extremity swelling. He states that on reviewing his medication he stopped the nifedipine which she felt was the culprit of his swelling. He reported putting a call to his physician but did not hear back from them. He otherwise reports compliance with all his other medication also states that he was not placed on a water pill. It appears he was asked this in the ER On further evaluation in the ER he is noted to have a systolic blood pressure in the 240s with diastolic in the 120s and is being placed on labetalol drip and we are requested to admit the patient for further evaluation.. On examination the patient. He denies any fever nausea vomiting or diarrhea. He reports that he did have some renal dysfunction and was on dialysis for 1 year after his initial aortic dissection repair he remembers his last creatinine being 3.6 and today it is 6. Nephrology has been consulted as well as nut sorter from the ED. Hypertensive emergency Acute kidney injury likely hypertensive renal disease on chronic kidney disease IV Type II NSTEMI History of abdominal aortic aneurysm (AAA) repair Possible diastolic congestive heart failure Acute hypoxic respiratory failure with Shortness of breath likely secondary to hypertensive emergency and possible underlying diastolic heart failure Obesity Metabolic Acidosis Anemia of chronic disease Hypokalemia Plan Admit to the ICU due to hypertensive emergency and need for labetalol drip It was documented the patient was tachypneic with shortness of breath, sure if there was true hypoxia as oxygen saturations initially is not documented in many cases consulted Application Dba. Continue Labetalol drip, will resume Hydralazine Obtain Renal Consult Cardiology consulted Will avoid further Lasix apart from what has been given in the ER until renal evaluation is complete Resume appropriate blood pressure control in addition to the labetalol drip with the hope to wean the labetalol drip. Further report shows that the patient was seen by Dr. Valero at [facility]. Who also repaired the ascending aorta and diagnosed heart failure at the time. I do not have records to the at that time. We will obtain an echocardiogram here. Weight loss encouraged Replace K cautiously DVT/GI PROPHY The high probability of a clinically significant, sudden or life threatening deterioration of the [Cardiac, Pulmonary] system(s) required my full and direct attention, intervention and personal management. The aggregate critical care time was [65] minutes. This time is in addition to time spent performing reported procedures but includes the following: [x] Data Review and interpretation [x] Patient assessment and monitoring of vital signs [x] Documentation [x] Medication orders and management Advance Directives: Yes Plan of care discussed with patient/family: Yes
[2022-01-10] MEDS ORDERED: NALOXONE 0.4 MG/1 ML INJ IV PRN (10:00)
[2022-01-10] MEDS ORDERED: ONDANSETRON 4 MG/2 ML INJ IV PRN (10:00)
[2022-01-10] MEDS: SENNOSIDES 8.6 MG TAB PO SCH ×2 (10:32→22:22)
[2022-01-10] MEDS: FAMOTIDINE 20 MG/2 ML INJ IV SCH ×2 (10:32→22:23)
[2022-01-10] MEDS: hydrALAZINE 25 MG TAB PO SCH ×3 (10:39→22:25)
[2022-01-10] MEDS ORDERED: ALBUTEROL 2.5 MG/3 ML NEBU IH PRN (11:00)
[2022-01-10 11:21] LABS: Creatine Kinase MB 6.3 ng/mL (0.0-4.0)
--- NOTE | 2022-01-10 12:03 | Consultation ---
History of Present Illness - Reason for Consult Consult date: 01/10/22 acute renal failure, chronic renal failure - History of Present Illness The patient with CKD stage IV secondary to HTN was admitted for worsening swelling in BLE, he was found to be hypertensive with worsening kidney function and renal consult was requested. he follows with nepphrology in [place] and stated 4 months ago his Cr was 3.8 Past History Past Medical History: dialysis, hypertension Medications and Allergies Allergies Allergy/AdvReac Type Severity Reaction Status Date / Time No Known Allergies Allergy Verified 01/10/22 08:24 Home Medications Medication Instructions Recorded Confirmed Last Taken Type Labetalol HCl [Labetalol 300mg TAB] 300 mg PO TID #90 09/16/21 01/10/22 Unknown Rx NIFEdipine [Procardia Xl] 60 mg PO DAILY #30 09/16/21 01/10/22 Unknown Rx hydrALAZINE [Apresoline TAB] 50 mg PO TID #90 tab 09/16/21 01/10/22 Unknown Rx Active Meds: Active Medications Acetaminophen (Acetaminophen 325 Mg Tab) 650 mg PO Q6H PRN PRN Reason: Pain MILD(1-3)/Fever >100.5/ORNELAS Albuterol (Albuterol 2.5 Mg/3 Ml Nebu) 2.5 mg IH Q3HRT PRN PRN Reason: Shortness Of Breath Famotidine (Famotidine 20 Mg/2 Ml Inj) 10 mg IV BID [facility] Last Admin: 01/10/22 10:32 Dose: 10 mg Heparin Sodium (Porcine) (Heparin 5,000 Unit/1 Ml Vial) 5,000 unit SUB-Q Q8HR [facility] Hydralazine HCl (Hydralazine 25 Mg Tab) 50 mg PO Q8HR [facility] Last Admin: 01/10/22 10:39 Dose: 50 mg Labetalol HCl (Labetalol 100 Mg Tab) 300 mg PO TID [facility] Morphine Sulfate (Morphine 2 Mg/1 Ml Inj) 2 mg IV Q4H PRN PRN Reason: Pain, Moderate (4-6) Naloxone HCl (Naloxone 0.4 Mg/1 Ml Inj) 0.1 mg IV Q2MIN PRN PRN Reason: Res Rate </= 8 or 02 SAT < 92% Ondansetron HCl (Ondansetron 4 Mg/2 Ml Inj) 4 mg IV Q4H PRN PRN Reason: Nausea And Vomiting Senna (Sennosides 8.6 Mg Tab) 8.6 mg PO BID [facility] Last Admin: 01/10/22 10:32 Dose: 8.6 mg Sodium Chloride (Sodium Chloride 0.9% 10 Ml Flush Syringe) 10 ml IV BID [facility] Last Admin: 01/10/22 10:33 Dose: 10 ml Sodium Chloride (Sodium Chloride 0.9% 10 Ml Flush Syringe) 10 ml IV PRN PRN PRN Reason: LINE FLUSH Review of Systems All systems: negative (swelling in legs) Exam - Vital Signs Vital signs: Vital Signs Temp Pulse Resp BP Pulse Ox 98.4 F 92 H 18 219/145 96 01/09/22 20:35 01/09/22 20:35 01/09/22 20:35 01/09/22 20:35 01/09/22 20:35 - General Appearance General appearance: well-developed, well-nourished EENT: ATNC, PERRL, mucous membranes moist Neck: Present: neck supple Respiratory: Decreased Breath Sounds Heart: regular, S1S2 Gastrointestinal: Present: normoactive bowel sounds. Absent: tenderness, distended, masses Integumentary: no rash, warm and dry Neurologic: no focal deficit, no asterixis, alert and oriented x3 Musculoskeletal: Present: other (trace pitting edema in BLE) Psychiatric: cooperative Results - Lab Results 01/10/22 02:09 01/10/22 02:09 Most recent lab results Calcium 9.3 mg/dL (8.4-10.2) 01/10/22 02:09 Assessment and Plan (1) Sepsis (2) Acute hypoxemic respiratory failure (3) Suspected 2019-nCoV infection (4) Pneumonia (5) Obesity hypoventilation syndrome 6) Accelerated hypertension patient with progressing CKD, will check secondary GN and vasculitis panel will no start IVF challenge to volume overload no indication for HD, may need to be started soon, however, the patient now does not want HD can use diuretcis if needed renally dose emds stict I&O daily weight
[2022-01-10] MEDS ORDERED: labetaloL 200 MG in DEXTROSE 5% IN WATER 160 ML IV SCH (13:00)
[2022-01-10] MEDS ORDERED: hydrALAZINE 100 MG TAB PO SCH (14:00)
[2022-01-10] MEDS ORDERED: NON-FORMULARY EACH (Labetalol Hcl [Labetalol 300mg Tab] 300 MG Tablet) PO SCH (14:00)
[2022-01-10 14:02] LABS: Albumin 4.7 g/dL (3.9-5); Calcium 9.7 mg/dL (8.4-10.2)
--- NOTE | 2022-01-10 14:59 | Consultation ---
History of Present Illness Consult date: 01/10/22 Requesting physician: MARIA DOLORES DAY Consult reason: congestive heart failure, hypertension History of present illness: Chief complaint: Bilateral lower extremity swelling This is a 46-year-old -[place] male, unknown to our practice, with significant past medical history of HFrEF, hypertension, TEVAR September 2020, and end-stage renal disease requiring dialysis. Patient stated in September 2020 he underwent TEVAR, and subsequently renal failure requiring dialysis. He previously followed with a Dr. Gurrola, spinal surgeon, with [facility] but after having to leave his job s/p TEVAR has not since followed up with any physicians. He states that he last saw his emt basic approximately 1 year ago and was last dialyzed January 2021. Patient stated that over the last week he began to notice bilateral lower extremity swelling, dyspnea with exertion, activity intolerance, increased anxiety, and PND. He also admits to some lower extremity leg cramping. Patient states that upon noticing the symptoms, he found that one of his medications, nifedipine, could cause some of these side effects so he stated he stopped taking that medication approximately 2 days ago. He does however state he continued taking his other blood pressure medications. He further states that he has not been following a cardiac or fluid restricted diet. He denies other symptoms to include chest pain, nausea/vomiting, cough, diaphoresis, or orthopnea. Denies recent sick contacts. However, does endorse recent 8-hour car ride about 1 week ago. Cardiology is consulted for hypertensive urgency and acute heart failure. Past History Past Medical History: hypertension, hyperlipidemia, renal failure Past Surgical History: abd. aortic aneurysm repair Social history: full code. denies: smoking, alcohol abuse, prescription drug abuse, IV drug use Family history: CAD (Patient states CAD, stroke, hypertension on both sides of his family), hypertension, stroke Medications and Allergies Allergies Allergy/AdvReac Type Severity Reaction Status Date / Time No Known Allergies Allergy Verified 01/10/22 08:24 Home Medications Medication Instructions Recorded Confirmed Last Taken Type Labetalol HCl [Labetalol 300mg TAB] 300 mg PO TID #90 09/16/21 01/10/22 Unknown Rx NIFEdipine [Procardia Xl] 60 mg PO DAILY #30 09/16/21 01/10/22 Unknown Rx hydrALAZINE [Apresoline TAB] 50 mg PO TID #90 tab 09/16/21 01/10/22 Unknown Rx Active Meds: Active Medications Acetaminophen (Acetaminophen 325 Mg Tab) 650 mg PO Q6H PRN PRN Reason: Pain MILD(1-3)/Fever >100.5/ORNELAS Albuterol (Albuterol 2.5 Mg/3 Ml Nebu) 2.5 mg IH Q3HRT PRN PRN Reason: Shortness Of Breath Famotidine (Famotidine 20 Mg/2 Ml Inj) 10 mg IV BID [facility] Last Admin: 01/10/22 10:32 Dose: 10 mg Heparin Sodium (Porcine) (Heparin 5,000 Unit/1 Ml Vial) 5,000 unit SUB-Q Q8HR [facility] Hydralazine HCl (Hydralazine 25 Mg Tab) 50 mg PO Q8HR [facility] Last Admin: 01/10/22 10:39 Dose: 50 mg Labetalol HCl 200 mg/ Dextrose 200 mls @ 120 mls/hr IV TITR [facility]; Protocol Last Admin: 01/10/22 14:38 Dose: 2 mg/min, 120 mls/hr Isosorbide Mononitrate (Isosorbide Mononitrate Er 30 Mg Tab) 30 mg PO QDAY [facility] Labetalol HCl (Labetalol 100 Mg Tab) 300 mg PO TID [facility] Morphine Sulfate (Morphine 2 Mg/1 Ml Inj) 2 mg IV Q4H PRN PRN Reason: Pain, Moderate (4-6) Naloxone HCl (Naloxone 0.4 Mg/1 Ml Inj) 0.1 mg IV Q2MIN PRN PRN Reason: Res Rate </= 8 or 02 SAT < 92% Ondansetron HCl (Ondansetron 4 Mg/2 Ml Inj) 4 mg IV Q4H PRN PRN Reason: Nausea And Vomiting Senna (Sennosides 8.6 Mg Tab) 8.6 mg PO BID [facility] Last Admin: 01/10/22 10:32 Dose: 8.6 mg Sodium Chloride (Sodium Chloride 0.9% 10 Ml Flush Syringe) 10 ml IV BID [facility] Last Admin: 01/10/22 10:33 Dose: 10 ml Sodium Chloride (Sodium Chloride 0.9% 10 Ml Flush Syringe) 10 ml IV PRN PRN PRN Reason: LINE FLUSH Review of Systems All systems: negative Constitutional: no fever, no chills Cardiovascular: edema, shortness of breath, dyspnea on exertion, paroxysmal nocturnal dyspnea, high blood pressure, leg edema, decreased exercise tolerance, no chest pain, no orthopnea, no palpitations Respiratory: no cough Gastrointestinal: no nausea, no vomiting, no diarrhea Neurological: no headaches Psychiatric: anxiety Physical Examination Vital Signs - 8 hr 01/10/22 01/10/22 01/10/22 08:17 08:30 08:59 Pulse Rate Respiratory Rate Blood Pressure 204/138 O2 Sat by Pulse 98 94 98 Oximetry 01/10/22 01/10/22 01/10/22 09:51 10:39 13:53 Pulse Rate 91 H 77 78 Respiratory 32 H Rate Blood Pressure 211/126 173/119 O2 Sat by Pulse 96 Oximetry 01/10/22 01/10/22 01/10/22 14:01 14:15 14:31 Pulse Rate 78 74 79 Respiratory 48 H 28 H 42 H Rate Blood Pressure 169/119 174/122 O2 Sat by Pulse 94 100 69 L Oximetry 01/10/22 14:45 Pulse Rate 76 Respiratory 21 Rate Blood Pressure 169/116 O2 Sat by Pulse 100 Oximetry General appearance: mild distress HEENT: Positive: Normocephaly Neck: Positive: trachea midline Cardiac: Positive: Reg Rate and Rhythm, S1/S2 Lungs: Positive: Decreased Breath Sounds Neuro: Positive: Grossly Intact Abdomen: Positive: Unremarkable, Soft, Active Bowel Sounds Male genitourinary: Positive: deferred Skin: Negative: Rash Extremities: Present: upper extr. pulses (2+), +3 Edema (Bilateral lower extremities), warm Results 01/10/22 02:09 01/10/22 12:27 Cardiac Enzymes 01/10/22 01/10/22 01/10/22 Range/Units 02:09 10:32 12:27 AST 14 (5-40) units/L Lactate Dehydrogenase 242 H (91-180) units/L CK-MB (CK-2) 6.3 H (0.0-4.0) ng/mL 01/10/22 Range/Units 12:27 AST 18 (5-40) units/L Lactate Dehydrogenase (91-180) units/L CK-MB (CK-2) (0.0-4.0) ng/mL Lipids 01/10/22 Range/Units 02:09 Triglycerides 65 (2-149) mg/dL Cholesterol 121 (50-199) mg/dL HDL Cholesterol 35 L (40-59) mg/dL Cholesterol/HDL Ratio 3.45 % CBC 01/10/22 Range/Units 02:09 WBC 6.8 (4.5-11.0) K/mm3 RBC 4.04 (3.65-5.03) M/mm3 Hgb 10.0 L (11.8-15.2) gm/dl Hct 32.0 L (35.5-45.6) % Plt Count 282 (140-440) K/mm3 Lymph # (Auto) 1.5 (1.2-5.4) K/mm3 [place] # (Auto) 0.4 (0.0-0.8) K/mm3 Eos # (Auto) 0.8 H (0.0-0.4) K/mm3 Baso # (Auto) 0.1 (0.0-0.1) K/mm3 Comprehensive Metabolic Panel 01/10/22 01/10/22 Range/Units 02:09 12:27 Sodium 142 142 (137-145) mmol/L Potassium 3.2 L 3.3 L (3.6-5.0) mmol/L Chloride 101.3 101.4 (98-107) mmol/L Carbon Dioxide 21 L 21 L (22-30) mmol/L BUN 70 H 66 H (9-20) mg/dL Creatinine 6.0 H 6.0 H (0.8-1.3) mg/dL Glucose 104 H 92 (75-100) mg/dL Calcium 9.3 9.7 (8.4-10.2) mg/dL AST 14 18 (5-40) units/L ALT 16 22 (7-56) units/L Alkaline Phosphatase 97 100 (35-129) units/L Total Protein 7.0 6.9 (6.3-8.2) g/dL Albumin 4.5 4.7 (3.9-5) g/dL - Imaging and Cardiology Echo: pending EKG: image reviewed EKG interpretations - Telemetry EKG Rhythm: Sinus Rhythm - EKG Sinus rhythms and dysrhythmias: sinus rhythm Repolarization changes or abnormalities: nonspecific abnormality, ST segment, and/or T wave Assessment and Plan Assessment Acute on chronic HFrEF RAHEL on chronic kidney disease Hypertensive urgency NSTEMI type II ; mildly elevated troponin; likely in the setting of renal failure History of thoracic endovascular aneurysm repair 09/2020 Acute hypoxemic respiratory failure Cardiographics EKG 01/10/2022- sinus rhythm, rate 92, with probable LVH, and nonspecific T wave abnormalities. No acute ischemic changes Chest x-ray: 01/10/2022-no active cardiopulmonary disease Echocardiogram-repeat echocardiogram pending - 09/2020 : EF 35% Recommendations/plan Patient in acute on chronic HFrEF and hypertensive urgency. Check echocardiogram Bilateral lower extremity venous duplex given recent extended travel and bilateral lower extremity swelling with pain. Continue labetalol 300 mg PO 3 times daily. Will initiate Imdur 30 mg PO daily. Continue hydralazine 50 mg PO 3 times daily No BRENDA/ARB/ARNI in the setting of renal failure. Defer fluid and electrolyte management to nephrology in the setting of renal failure. Thank you for this consultation, will continue to follow along. Patient seen in conjunction with Dr. Iglesias who agrees with the assessment and management of this patient. - Patient Problems (1) Hypertensive urgency Current Visit: Yes Status: Acute (2) Status post insertion of endovascular thoracic aortic stent graft Current Visit: Yes Status: Acute (3) Acute on chronic HFrEF (heart failure with reduced ejection fraction) Current Visit: Yes Status: Acute (4) Acute kidney injury superimposed on chronic kidney disease Current Visit: Yes Status: Acute (5) Elevated troponin Current Visit: Yes Status: Acute (6) Acute hypoxemic respiratory failure Current Visit: Yes Status: Acute
[2022-01-10] MEDS: HEPARIN 5,000 UNIT/1 ML VIAL SUB-Q SCH ×2 (15:34→22:23)
[2022-01-10] MEDS: niCARdipine 50 MG in SODIUM CHLORIDE 0.9% 250ML 230 ML IV SCH (17:27)
--- NOTE | 2022-01-10 17:56 | Vascular Lab Report ---
DUPLEX DOPPLER LOWER EXTREMITY VEINS, BILATERAL INDICATION / CLINICAL INFORMATION: Bilateral lower extremity swelling and pain. TECHNIQUE: Duplex doppler imaging was performed through the veins of both lower extremities using bobby ous compression and other maneuvers. COMPARISON: None available. FINDINGS: RIGHT COMMON FEMORAL VEIN: Negative. RIGHT FEMORAL VEIN: Negative. RIGHT POPLITEAL VEIN: Negative. RIGHT CALF VEINS: Negative. LEFT COMMON FEMORAL VEIN: Negative. LEFT FEMORAL VEIN: Negative. LEFT POPLITEAL VEIN: Negative. LEFT CALF VEINS: Negative. ADDITIONAL FINDINGS: Moderate subcutaneous edema. IMPRESSION: 1. No sonographic evidence for DVT in either lower extremity. Moderate subcutaneous edema Scribed by: Sadie Ball RDMS, FLAKITAT, SHERICE Scribed: 01/10/2022 3:14 PM I have reviewed the images, agree with this report, and edited this report as needed. Signer Name: Bebeto Uriostegui MD Signed: 01/10/2022 5:52 PM Workstation Name: [id number]
[2022-01-10 19:32] LABS: Creatine Kinase MB 5.4 ng/mL (0.0-4.0)
[2022-01-10 20:57] LABS: Creatinine,Urine 195.8 mg/dL (0.1-20.0)
[2022-01-10 21:02] LABS: Creatinine,Urine 193.5 mg/dL (0.1-20.0)
[2022-01-10 21:14] LABS: Protein/Creatinine Ratio,Urine 1.09
[2022-01-11] MEDS: niCARdipine 50 MG in SODIUM CHLORIDE 0.9% 250ML 230 ML IV SCH (02:45)
[2022-01-11 04:55] LABS: Basophils # (Auto) 0.1 K/mm3 (0.0-0.1); Basophils % (Auto) 1.3 % (0.0-1.8); Eosinophils # (Auto) 0.5 K/mm3 (0.0-0.4); Eosinophils % (Auto) 7.2 % (0.0-4.3); Hematocrit 30.2 % (35.5-45.6); Hemoglobin 9.4 gm/dl (11.8-15.2); Lymphocytes # (Auto) 1.2 K/mm3 (1.2-5.4); Lymphocytes % (Auto) 17.9 % (13.4-35.0); Mean Corpuscular HGB Conc 31 % (32-34); Mean Corpuscular Volume 80 fl (84-94); Monocytes # (Auto) 0.6 K/mm3 (0.0-0.8); Monocytes % (Auto) 8.6 % (0.0-7.3); Platelet Count 250 K/mm3 (140-440); Red Blood Count 3.78 M/mm3 (3.65-5.03); Red Cell Distribution Width 18.7 % (13.2-15.2)
[2022-01-11 05:09] LABS: Albumin 4.1 g/dL (3.9-5); Calcium 8.9 mg/dL (8.4-10.2)
[2022-01-11] MEDS: hydrALAZINE 25 MG TAB PO SCH ×3 (06:06→21:27)
[2022-01-11] MEDS: HEPARIN 5,000 UNIT/1 ML VIAL SUB-Q SCH ×3 (06:06→21:27)
--- NOTE | 2022-01-11 09:06 | Progress Note ---
Assessment and Plan (1) Sepsis (2) Acute hypoxemic respiratory failure (3) Suspected 2019-nCoV infection (4) Pneumonia (5) Obesity hypoventilation syndrome 6) Accelerated hypertension patient with progressing CKD, will check secondary GN and vasculitis panel- pending will no start IVF challenge to volume overload, lasix 40 mg BID ordered no indication for HD, may need to be started soon, however, the patient now does not want HD, if agrees with HD with request permcath renal US and bladder scan are pending renally dose emds stict I&O daily weight Subjective Date of service: 01/11/22 Principal diagnosis: renal failure Interval history: remains to have swelling in legs Objective - Vital Signs Vital signs: Vital Signs - 12hr 01/10/22 01/10/22 01/10/22 21:56 22:00 22:13 Temperature Pulse Rate 65 104 H Pulse Rate [ Bilateral] Respiratory 27 H Rate Blood Pressure 119/70 O2 Sat by Pulse 95 97 Oximetry 01/10/22 01/10/22 01/10/22 22:15 22:22 22:25 Temperature Pulse Rate 92 H 64 66 Pulse Rate [ Bilateral] Respiratory 25 H Rate Blood Pressure 163/109 134/90 134/90 O2 Sat by Pulse 97 Oximetry 01/10/22 01/10/22 01/10/22 22:39 22:45 23:00 Temperature Pulse Rate 90 99 H Pulse Rate [ Bilateral] Respiratory 21 23 12 Rate Blood Pressure 174/117 174/117 139/84 O2 Sat by Pulse 96 97 98 Oximetry 01/10/22 01/10/22 01/10/22 23:15 23:30 23:45 Temperature Pulse Rate Pulse Rate [ Bilateral] Respiratory Rate Blood Pressure 151/100 138/96 140/90 O2 Sat by Pulse Oximetry 01/10/22 01/10/22 01/11/22 23:47 23:57 00:00 Temperature 98.6 F Pulse Rate 71 Pulse Rate [ Bilateral] Respiratory 20 17 Rate Blood Pressure 128/86 O2 Sat by Pulse 82 L 99 Oximetry 01/11/22 01/11/22 01/11/22 00:15 00:30 00:45 Temperature Pulse Rate Pulse Rate [ Bilateral] Respiratory Rate Blood Pressure 121/85 142/82 131/89 O2 Sat by Pulse Oximetry 01/11/22 01/11/22 01/11/22 01:00 02:00 02:45 Temperature Pulse Rate Pulse Rate [ 66 Bilateral] Respiratory 27 H Rate Blood Pressure 139/92 141/90 137/83 O2 Sat by Pulse 93 Oximetry 01/11/22 01/11/22 01/11/22 03:00 03:15 03:30 Temperature Pulse Rate Pulse Rate [ 69 Bilateral] Respiratory Rate Blood Pressure 139/84 127/67 136/64 O2 Sat by Pulse Oximetry 01/11/22 01/11/22 01/11/22 04:00 04:11 04:15 Temperature 97.3 F L Pulse Rate 68 Pulse Rate [ 65 Bilateral] Respiratory 25 H Rate Blood Pressure 130/77 106/69 O2 Sat by Pulse 90 97 Oximetry 01/11/22 01/11/22 01/11/22 04:30 06:06 06:19 Temperature Pulse Rate 70 Pulse Rate [ 71 Bilateral] Respiratory 30 H Rate Blood Pressure 116/62 136/82 145/88 O2 Sat by Pulse 96 Oximetry 01/11/22 01/11/22 01/11/22 07:12 08:18 08:50 Temperature 97.7 F Pulse Rate 77 Pulse Rate [ Bilateral] Respiratory Rate Blood Pressure 148/91 O2 Sat by Pulse 97 Oximetry - General Appearance General appearance: well-developed, well-nourished EENT: ATNC, PERRL Neck: no JVD Respiratory: Present: Decreased Breath Sounds. Absent: Rales, Ronchi, Wheezes Cardiology: regular, S1S2 Gastrointestinal: normoactive bowel sounds, no tenderness, no distended Integumentary: no rash, warm and dry Neurologic: no focal deficit, no asterixis Musculoskeletal: other (+2 pitting edema in BLE) Psychiatric: mood/affect appropriate - Lab 01/11/22 04:32 01/11/22 13:10 Most recent lab results Calcium 8.9 mg/dL (8.4-10.2) 01/11/22 04:32 Phosphorus 6.40 mg/dL (2.5-4.5) H 01/11/22 04:32 Urine Creatinine 193.5 mg/dL (0.1-20.0) H 01/10/22 Unknown Urine Creatinine 195.8 mg/dL (0.1-20.0) H 01/10/22 Unknown Urine Sodium 22 mmol/L 01/10/22 Unknown Urine Total Protein 210 mg/dL (5-11.8) H 01/10/22 Unknown Medications & Allergies - Medications Allergies/Adverse Reactions: Allergies No Known Allergies Allergy (Verified 01/10/22 08:24) Home Medications: Home Medications Medication Instructions Recorded Confirmed Last Taken Type Labetalol HCl [Labetalol 300mg TAB] 300 mg PO TID #90 09/16/21 01/10/22 Unknown Rx NIFEdipine [Procardia Xl] 60 mg PO DAILY #30 09/16/21 01/10/22 Unknown Rx hydrALAZINE [Apresoline TAB] 50 mg PO TID #90 tab 09/16/21 01/10/22 Unknown Rx Active Medications: Generic Name Dose Route Start Last Admin Trade Name Freq PRN Reason Stop Dose Admin Acetaminophen 650 mg 01/10/22 10:00 Acetaminophen 325 Mg Tab PO Q6H PRN Pain MILD(1-3)/Fever >100.5/ORNELAS Albuterol 2.5 mg 01/10/22 11:00 Albuterol 2.5 Mg/3 Ml Nebu IH Q3HRT PRN Shortness Of Breath Famotidine 10 mg 01/11/22 10:00 Famotidine 10 Mg Tab PO BID MATILDA Heparin Sodium (Porcine) 5,000 unit 01/10/22 14:00 01/11/22 06:06 Heparin 5,000 Unit/1 Ml Vial SUB-Q 5,000 unit Q8HR MATILDA Administration Hydralazine HCl 50 mg 01/10/22 10:00 01/11/22 06:06 Hydralazine 25 Mg Tab PO 50 mg Q8HR MATILDA Administration Nicardipine HCl 50 mg/ Sodium 250 mls @ 25 mls/hr 01/10/22 15:30 01/11/22 08:12 Chloride IV 5 mg/hr TITR MATILDA 25 mls/hr Titration Protocol 5 MG/HR Isosorbide Mononitrate 30 mg 01/10/22 16:00 01/10/22 17:00 Isosorbide Mononitrate Er 30 Mg Tab PO 30 mg QDAY MATILDA Administration Labetalol HCl 300 mg 01/10/22 14:00 01/11/22 08:18 Labetalol 100 Mg Tab PO 300 mg TID MATILDA Administration Morphine Sulfate 2 mg 01/10/22 10:00 Morphine 2 Mg/1 Ml Inj IV Q4H PRN Pain, Moderate (4-6) Naloxone HCl 0.1 mg 01/10/22 10:00 Naloxone 0.4 Mg/1 Ml Inj IV Q2MIN PRN Res Rate </= 8 or 02 SAT < 92% Ondansetron HCl 4 mg 01/10/22 10:00 01/11/22 01:22 Ondansetron 4 Mg/2 Ml Inj IV 4 mg Q4H PRN Administration Nausea And Vomiting Senna 8.6 mg 01/10/22 10:00 01/10/22 22:22 Sennosides 8.6 Mg Tab PO 8.6 mg BID MATILDA Administration Sodium Chloride 10 ml 01/10/22 10:00 01/10/22 22:23 Sodium Chloride 0.9% 10 Ml Flush Syringe IV 10 ml BID MATILDA Administration Sodium Chloride 10 ml 01/10/22 10:00 Sodium Chloride 0.9% 10 Ml Flush Syringe IV PRN PRN LINE FLUSH
[2022-01-11] MEDS: SENNOSIDES 8.6 MG TAB PO SCH ×2 (09:36→21:27)
[2022-01-11] MEDS: FAMOTIDINE 10 MG TAB PO SCH ×2 (09:36→21:27)
[2022-01-11] MEDS: FUROSEMIDE 40 MG/4 ML INJ IV SCH ×2 (09:36→17:09)
[2022-01-11] MEDS ORDERED: AYR SALINE NASAL GEL 14.1 GM NS PRN (10:57)
--- NOTE | 2022-01-11 11:28 | Electrocardiograph Report ---
Test Date: 2022-01-10 Test Time: 02:31:59 Pat Name: MIHIR HARRIS Department: Room: A258 Gender: M Security Incident Response Specialist: SAUMYA : 1975 Requested By: DAMON BECKFORD Order Number: [id number] Reading MD: Yogesh Iglesias Measurements Intervals [place] Rate: 93 P: 41 NV: 184 QRS: 67 QRSD: 122 T: 250 QT: 371 QTc: 462 Interpretive Statements Sinus rhythm Probable left atrial enlargement LVH with IVCD and secondary repol abnr Compared to ECG 09/14/2021 11:50:56 Intraventricular conduction delay now present Sinus tachycardia no longer present Early repolarization no longer present ST (T wave) deviation no longer present Electronically Signed On 01-11-2022 11:27:43 EDT by Yogesh Iglesias
--- NOTE | 2022-01-11 11:29 | Electrocardiograph Report ---
[facility] Test Date: 2022-01-10 Test Time: 08:36:24 Pat Name: MIHIR HARRIS Department: Room: A258 Gender: M Strategic Planning Analyst: JULIAN : 1975 Requested By: SIGRID BHATIA Order Number: [id number] Reading MD: Yogesh Iglesias Measurements Intervals [place] Rate: 92 P: 37 IN: 182 QRS: 34 QRSD: 123 T: 208 QT: 404 QTc: 500 Interpretive Statements Sinus rhythm Left atrial enlargement LVH with secondary repolarization abnormality Compared to ECG 01/10/2022 02:31:59 Early repolarization now present Intraventricular conduction delay no longer present Electronically Signed On 01-11-2022 11:28:52 EDT by Yogesh Iglesias
--- NOTE | 2022-01-11 11:34 | Ultrasound Report ---
ULTRASOUND RENAL INDICATION / CLINICAL INFORMATION: renal failure. COMPARISON: None available. FINDINGS: RIGHT KIDNEY: Length = 9.8 cm. - Echogenicity: Increased. - Parenchymal Thickness: Normal. - Hydronephrosis: None. - Cyst / Mass: None. - Stones: None seen. LEFT KIDNEY: Length = 9.8 cm. - Echogenicity: Increased. - Parenchymal Thickness: Normal. - Hydronephrosis: None. - Cyst / Mass: None. - Stones: None seen. URINARY BLADDER: No significant abnormality. FREE FLUID: None. ADDITIONAL FINDINGS: None. IMPRESSION: 1. Increased cortical echogenicity suggests bilateral medical renal disease. 2. No evidence of renal mass or hydronephrosis. Scribed by: Sadie Ball RDMS, FLAKITAT, SHERICE Scribed: 01/11/2022 9:05 AM I have reviewed the images, agree with this report, and edited this report as needed. Signer Name: Nikolai Izquierdo MD Signed: 01/11/2022 11:30 AM Workstation Name: [id number]
--- NOTE | 2022-01-11 11:42 | Progress Note ---
Assessment and Plan This is a 46-year-old -[place] male, unknown to our practice, with significant past medical history of HFrEF, hypertension, TEVAR September 2020, and end-stage renal disease requiring dialysis after TEVAR. Now admitted for Acute on Chroninc HFrEF, RAHEL on CKD, and hypetensive urgency. Assessment Acute on chronic HFrEF (09/2020 EF 35%) RAHEL on CKD Hypertensive urgency - resolving NSTEMI type II; mildly elevated troponin; likely in the setting of renal failure History of thoracic endovascular aneurysm repair 09/2020 Acute hypoxemic respiratory failure - on ID Cardiographics EKG 01/10/2022- sinus rhythm, rate 92, with probable LVH, and nonspecific T wave abnormalities. No acute ischemic changes Chest x-ray: 01/10/2022-no active cardiopulmonary disease Echocardiogram-repeat echocardiogram pending - 09/2020 : EF 35% BLE Venous duplex 01/10/22: Negative for BLE DVT Plan: Echo pending BP improving. Was brought to ICU on cardene gtt, which is now off. Continue labetalol 300 mg PO 3 times daily, Imdur 30 mg PO daily, hydralazine 50 mg PO 3 times daily No BRENDA/ARB/ARNI in the setting of renal failure. Fluid and electrolyte management per nephrology. Creatinine 6.5 today. Patient seen in conjunction with Dr. Iglesias who agrees with the assessment and management of this patient. - Patient Problems (1) Hypertensive urgency Current Visit: Yes Status: Acute (2) Status post insertion of endovascular thoracic aortic stent graft Current Visit: Yes Status: Acute (3) Acute on chronic HFrEF (heart failure with reduced ejection fraction) Current Visit: Yes Status: Acute (4) Acute kidney injury superimposed on chronic kidney disease Current Visit: Yes Status: Acute (5) Elevated troponin Current Visit: Yes Status: Acute (6) Acute hypoxemic respiratory failure Current Visit: Yes Status: Acute Subjective Date of service: 01/11/22 Principal diagnosis: renal failure, htn urgency, Acute on chronic HFrEF Interval history: Patient seen and examined today in the intensive care unit. His breathing is slightly labored, however he does not appear severely distressed. He states his breathing is slightly improved from yesterday and his lower extremity edema is improving. Cardene drip is now off. On oxygen via nasal cannula. Telemetry: Sinus rhythm Intake & Output 01/10/22 01/11/22 01/11/22 23:59 07:59 15:59 Intake Total 406.042 923.333 42.917 Output Total 100 0 300 Balance 306.042 923.333 -257.083 Weight 108.7 kg 108.7 kg Objective Vital Signs Temp Pulse Pulse Resp BP BP Pulse Ox 01/11/22 11:00 71 20 138/83 98 01/11/22 10:00 78 19 138/74 98 01/11/22 09:00 73 19 146/83 98 01/11/22 08:50 97 01/11/22 08:18 77 148/91 01/11/22 08:00 76 90 01/11/22 07:12 97.7 F 01/11/22 06:19 71 30 H 145/88 96 01/11/22 06:06 70 136/82 01/11/22 04:30 116/62 01/11/22 04:15 106/69 01/11/22 04:11 65 25 H 130/77 97 01/11/22 04:00 97.3 F L 68 90 01/11/22 03:30 136/64 01/11/22 03:15 127/67 01/11/22 03:00 69 139/84 01/11/22 02:45 66 137/83 01/11/22 02:00 27 H 141/90 93 01/11/22 01:00 139/92 01/11/22 00:45 131/89 01/11/22 00:30 142/82 01/11/22 00:15 121/85 01/11/22 00:00 71 17 128/86 99 01/10/22 23:57 98.6 F 01/10/22 23:47 20 82 L 01/10/22 23:45 140/90 01/10/22 23:30 138/96 01/10/22 23:15 151/100 01/10/22 23:00 12 139/84 98 01/10/22 22:45 99 H 23 174/117 97 01/10/22 22:39 90 21 174/117 96 01/10/22 22:25 66 134/90 01/10/22 22:22 64 134/90 01/10/22 22:15 92 H 25 H 163/109 97 01/10/22 22:13 104 H 27 H 119/70 97 01/10/22 22:00 65 01/10/22 21:56 95 01/10/22 21:00 98.5 F 01/10/22 20:31 62 31 H 115/70 90 01/10/22 20:15 60 26 H 114/67 89 01/10/22 20:01 61 22 123/80 95 01/10/22 19:45 60 18 127/74 95 01/10/22 19:31 58 L 22 142/76 96 01/10/22 19:15 65 32 H 132/81 89 01/10/22 19:01 66 29 H 132/83 91 01/10/22 18:45 68 23 137/80 98 01/10/22 18:31 67 22 162/106 97 01/10/22 18:15 71 16 161/80 94 01/10/22 18:01 71 22 150/99 85 01/10/22 17:45 68 24 163/98 98 01/10/22 17:31 71 22 160/94 96 01/10/22 17:15 73 32 H 146/110 81 L 01/10/22 17:01 67 24 157/87 100 01/10/22 16:45 71 12 145/100 100 01/10/22 16:31 70 20 140/92 97 01/10/22 16:15 68 18 144/95 98 01/10/22 16:01 68 34 H 136/93 98 01/10/22 15:45 66 33 H 137/93 99 01/10/22 15:31 69 25 H 139/92 97 01/10/22 15:15 69 28 H 141/106 100 01/10/22 15:01 73 32 H 167/114 98 01/10/22 14:45 76 21 169/116 100 01/10/22 14:31 79 42 H 174/122 69 L 01/10/22 14:15 74 28 H 169/119 100 01/10/22 14:01 78 48 H 94 01/10/22 13:53 78 32 H 96 - Physical Examination General: Appears Well HEENT: Positive: Normocephaly, Mucus Membranes Moist Neck: Positive: trachea midline Cardiac: Positive: Reg Rate and Rhythm, S1/S2 Lungs: Positive: Rales (Slight rales posterior lower lobe) Neuro: Positive: Grossly Intact Abdomen: Positive: Unremarkable, Soft, Active Bowel Sounds Skin: Negative: Rash Extremities: Present: upper extr. pulses (2+), +2 Edema (Bilateral lower extremities), warm - Labs and Meds Cardiac Enzymes 01/10/22 01/10/22 01/10/22 Range/Units 12:27 12: 18:29 AST 18 (5-40) units/L Lactate Dehydrogenase 242 H (91-180) units/L CK-MB (CK-2) 5.4 H (0.0-4.0) ng/mL 01/11/22 Range/Units 04:32 AST 26 (5-40) units/L Lactate Dehydrogenase (91-180) units/L CK-MB (CK-2) (0.0-4.0) ng/mL CBC 01/11/22 Range/Units 04:32 WBC 6.6 (4.5-11.0) K/mm3 RBC 3.78 (3.65-5.03) M/mm3 Hgb 9.4 L (11.8-15.2) gm/dl Hct 30.2 L (35.5-45.6) % Plt Count 250 (140-440) K/mm3 Lymph # (Auto) 1.2 (1.2-5.4) K/mm3 [place] # (Auto) 0.6 (0.0-0.8) K/mm3 Eos # (Auto) 0.5 H (0.0-0.4) K/mm3 Baso # (Auto) 0.1 (0.0-0.1) K/mm3 Comprehensive Metabolic Panel 01/10/22 01/11/22 Range/Units 12: 04:32 Sodium 142 140 (137-145) mmol/L Potassium 3.3 L 3.7 (3.6-5.0) mmol/L Chloride 101.4 101.3 (98-107) mmol/L Carbon Dioxide 21 L 19 L (22-30) mmol/L BUN 66 H 73 H (9-20) mg/dL Creatinine 6.0 H 6.5 H (0.8-1.3) mg/dL Glucose 92 95 (75-100) mg/dL Calcium 9.7 8.9 (8.4-10.2) mg/dL AST 18 26 (5-40) units/L ALT 22 33 (7-56) units/L Alkaline Phosphatase 100 87 (35-129) units/L Total Protein 6.9 6.2 L (6.3-8.2) g/dL Albumin 4.7 4.1 (3.9-5) g/dL - Imaging and Cardiology EKG: image reviewed Echo: pending - Telemetry EKG Rhythm: Sinus Rhythm - EKG Sinus rhythms and dysrhythmias: sinus rhythm Repolarization changes or abnormalities: nonspecific abnormality, ST segment, and/or T wave
--- NOTE | 2022-01-11 11:47 | Consultation ---
History of Present Illness - Reason for Consult Consult date: 01/11/22 Hypertensive Emergency - History of Present Illness 46 y/o male with known renal failure post TEVAR done at outside hospital just recently, admitted with shortness of breath and bilateral lower ext edema. Found to be in hypertensive emergency. STarted on labetalol drip and given lasix and transitioned to the ICU for further care. This morning edema has resolved. BP is better but still on drip as this had to be restarted. Renal has not added lasix and he has not had his am meds yet. Remainder is negative. Past History Past Medical History: hypertension, hyperlipidemia, renal failure Past Surgical History: abd. aortic aneurysm repair Social history: full code. denies: smoking, alcohol abuse, prescription drug abuse, IV drug use Family history: CAD (Patient states CAD, stroke, hypertension on both sides of his family), hypertension, stroke Medications and Allergies Allergies Allergy/AdvReac Type Severity Reaction Status Date / Time No Known Allergies Allergy Verified 01/10/22 08:24 Home Medications Medication Instructions Recorded Confirmed Last Taken Type Labetalol HCl [Labetalol 300mg TAB] 300 mg PO TID #90 09/16/21 01/10/22 Unknown Rx NIFEdipine [Procardia Xl] 60 mg PO DAILY #30 09/16/21 01/10/22 Unknown Rx hydrALAZINE [Apresoline TAB] 50 mg PO TID #90 tab 09/16/21 01/10/22 Unknown Rx Active Meds: Active Medications Acetaminophen (Acetaminophen 325 Mg Tab) 650 mg PO Q6H PRN PRN Reason: Pain MILD(1-3)/Fever >100.5/ORNELAS Albuterol (Albuterol 2.5 Mg/3 Ml Nebu) 2.5 mg IH Q3HRT PRN PRN Reason: Shortness Of Breath Famotidine (Famotidine 10 Mg Tab) 10 mg PO BID [facility] Last Admin: 01/11/22 09:36 Dose: 10 mg Furosemide (Furosemide 40 Mg/4 Ml Inj) 40 mg IV 0600,1800 [facility] Last Admin: 01/11/22 09:36 Dose: 40 mg Heparin Sodium (Porcine) (Heparin 5,000 Unit/1 Ml Vial) 5,000 unit SUB-Q Q8HR [facility] Last Admin: 01/11/22 06:06 Dose: 5,000 unit Hydralazine HCl (Hydralazine 25 Mg Tab) 50 mg PO Q8HR [facility] Last Admin: 01/11/22 06:06 Dose: 50 mg Nicardipine HCl 50 mg/ Sodium (Chloride) 250 mls @ 25 mls/hr IV TITR [facility]; Protocol Last Titration: 01/11/22 09:55 Dose: 0 mg/hr, 0 mls/hr Isosorbide Mononitrate (Isosorbide Mononitrate Er 30 Mg Tab) 30 mg PO QDAY [facility] Last Admin: 01/11/22 09:36 Dose: 30 mg Labetalol HCl (Labetalol 100 Mg Tab) 300 mg PO TID [facility] Last Admin: 01/11/22 08:18 Dose: 300 mg Morphine Sulfate (Morphine 2 Mg/1 Ml Inj) 2 mg IV Q4H PRN PRN Reason: Pain, Moderate (4-6) Naloxone HCl (Naloxone 0.4 Mg/1 Ml Inj) 0.1 mg IV Q2MIN PRN PRN Reason: Res Rate </= 8 or 02 SAT < 92% Ondansetron HCl (Ondansetron 4 Mg/2 Ml Inj) 4 mg IV Q4H PRN PRN Reason: Nausea And Vomiting Last Admin: 01/11/22 01:22 Dose: 4 mg Senna (Sennosides 8.6 Mg Tab) 8.6 mg PO BID [facility] Last Admin: 01/11/22 09:36 Dose: 8.6 mg Sodium Chloride (Sodium Chloride 0.9% 10 Ml Flush Syringe) 10 ml IV BID [facility] Last Admin: 01/11/22 09:37 Dose: 10 ml Sodium Chloride (Sodium Chloride 0.9% 10 Ml Flush Syringe) 10 ml IV PRN PRN PRN Reason: LINE FLUSH Sodium Chloride ([place] Saline Nasal Gel 14.1 Gm) 1 applic NS PRN PRN PRN Reason: Dry Nasal Passages Review of Systems All systems: negative Exam - Constitutional Vitals: Temp Pulse Resp BP Pulse Ox 97.7 F 71 20 138/83 98 01/11/22 07:12 01/11/22 11:00 01/11/22 11:00 01/11/22 11:00 01/11/22 11:00 General appearance: Present: no acute distress, well-nourished, obese - EENT Eyes: Present: PERRL, EOM intact ENT: hearing intact - Neck Neck: Present: supple, other (large in circumference) - Respiratory Respiratory effort: normal Respiratory: bilateral: diminished (secondary to body habitus) - Cardiovascular Rhythm: regular Heart Sounds: Present: S1 & S2 - Abdominal General gastrointestinal: Present: soft, non-tender, normal bowel sounds Male genitourinary: Present: deferred - Rectal Rectal Exam: deferred Results - Labs CBC & Chem 7: 01/11/22 04:32 01/11/22 04:32 Labs: Abnormal lab results 01/10/22 01/10/22 01/10/22 Range/Units 12:27 12:27 18:29 Hgb (11.8-15.2) gm/dl Hct (35.5-45.6) % MCV (84-94) fl MCH (28-32) pg MCHC (32-34) % RDW (13.2-15.2) % [place] % (Auto) (0.0-7.3) % Eos % (Auto) (0.0-4.3) % Eos # (Auto) (0.0-0.4) K/mm3 Potassium 3.3 L (3.6-5.0) mmol/L Carbon Dioxide 21 L (22-30) mmol/L BUN 66 H (9-20) mg/dL Creatinine 6.0 H (0.8-1.3) mg/dL Phosphorus (2.5-4.5) mg/dL Iron (49-181) ug/dL Lactate Dehydrogenase 242 H (91-180) units/L Total Creatine Kinase 201 H (55-170) units/L CK-MB (CK-2) 5.4 H (0.0-4.0) ng/mL Troponin T 0.047 H (0.00-0.029) ng/mL Total Protein (6.3-8.2) g/dL Urine Creatinine (0.1-20.0) mg/dL Urine Total Protein (5-11.8) mg/dL 01/10/22 01/10/22 01/11/22 Range/Units Unknown Unknown 04:32 Hgb 9.4 L (11.8-15.2) gm/dl Hct 30.2 L (35.5-45.6) % MCV 80 L (84-94) fl MCH 25 L (28-32) pg MCHC 31 L (32-34) % RDW 18.7 H (13.2-15.2) % [place] % (Auto) 8.6 H (0.0-7.3) % Eos % (Auto) 7.2 H (0.0-4.3) % Eos # (Auto) 0.5 H (0.0-0.4) K/mm3 Potassium (3.6-5.0) mmol/L Carbon Dioxide (22-30) mmol/L BUN (9-20) mg/dL Creatinine (0.8-1.3) mg/dL Phosphorus (2.5-4.5) mg/dL Iron (49-181) ug/dL Lactate Dehydrogenase (91-180) units/L Total Creatine Kinase (55-170) units/L CK-MB (CK-2) (0.0-4.0) ng/mL Troponin T (0.00-0.029) ng/mL Total Protein (6.3-8.2) g/dL Urine Creatinine 195.8 H 193.5 H (0.1-20.0) mg/dL Urine Total Protein 210 H (5-11.8) mg/dL 01/11/22/ Range/Units 04:32 04:32 Hgb (11.8-15.2) gm/dl Hct (35.5-45.6) % MCV (84-94) fl MCH (28-32) pg MCHC (32-34) % RDW (13.2-15.2) % [place] % (Auto) (0.0-7.3) % Eos % (Auto) (0.0-4.3) % Eos # (Auto) (0.0-0.4) K/mm3 Potassium (3.6-5.0) mmol/L Carbon Dioxide 19 L (22-30) mmol/L BUN 73 H (9-20) mg/dL Creatinine 6.5 H (0.8-1.3) mg/dL Phosphorus 6.40 H (2.5-4.5) mg/dL Iron 27 L (49-181) ug/dL Lactate Dehydrogenase (91-180) units/L Total Creatine Kinase (55-170) units/L CK-MB (CK-2) (0.0-4.0) ng/mL Troponin T (0.00-0.029) ng/mL Total Protein 6.2 L (6.3-8.2) g/dL Urine Creatinine (0.1-20.0) mg/dL Urine Total Protein (5-11.8) mg/dL - Imaging and Cardiology Chest x-ray: image reviewed (cardiomegaly, graft is visible, with mild pulmonary venous congestion.) Assessment and Plan 46 y/o obese male admitted with shortness of breath, found to be in hypertensive emergency and chronic vs acute on chronic renal failure with bilateral LE Edema and pulmonary edema 1. Give all oral meds 2. Attempt to turn drip off again 3. Suggest changing BP paraments to systolics of 150 as to not drop him to low to fast 4. needs katie screening as outpatient 5. Hopeful transfer out to floor this after noon or to an approved [place] facility as patient is stable for transfer now. CCT 31 minutes.
[2022-01-11 14:04] LABS: Albumin 3.9 g/dL (3.9-5); Calcium 8.4 mg/dL (8.4-10.2)
--- NOTE | 2022-01-11 18:17 | Progress Note ---
Assessment and Plan Assessment and plan: This is a 46-year-old male with obesity, hypertension, HFrEF, CKD s/p TEVAR admitted with acute on chronic heart failure, acute kidney injury, hypertensive urgency Neuro: NAD -Avoid delirium -Reorientation as needed -Maintain sleep-wake cycle -As needed analgesia Cardiac: Acute on Chronic systolic heart failure, s/p HTN urgency, h/p systolic heart failure, s/p thoracic aneurysm s/p TEVAR 2020 -CCM consulted, appreciate recommendations -Cardiology consulted, appreciate recommendations -S/p labetalol drip -P.o. labetalol, Imdur, hydralazine (titrate as needed) -Blood pressure monitoring per protocol -Echocardiogram pending -per cardiology: 09/2020 : EF 35% Respiratory: NAD, h/o ? OHS -Supplemental oxygen as needed -Pulmanory hygenie -SPO2 monitoring -Outpatient follow-up with pulmonology for this OHS work-up GI: MO -24 hours +402 mL -PPI -NTR consulted for tube feedings -BR: senokot : Acute on chronic kidney disease, hypokalemia -Nephrology consulted, appreciate recommendations -No IVF in setting of volume overload -Per nephrology Lasix 40 mg twice daily -Renal ultrasound increased cortical echogenicity suggest bilateral medical renal disease, no evidence of renal mass or hydronephrosis -Strict intake and output -Renally dose medications -Avoid nephrotoxic medications -Daily weights -Trend BMP ID: NAD -f/u blood culture -Monitor WBC and temperature curve Endo: NAD -Avoid hypoglycemia Heme: NAD -heparin subq -Trend CBC -Transfuse hemoglobin less than 7 -Monitor for signs of bleeding -SCDs to BLE while in bed The high probability of a clinically significant, sudden or life threatening deterioration of the [] system(s) required my full and direct attention, intervention and personal management. The aggregate critical care time was [60] minutes. This time is in addition to time spent performing reported procedures but includes the following: [x] Data Review and interpretation [x] Patient assessment and monitoring of vital signs [x] Documentation [x] Medication orders and management Disposition Plan: transfer to tele Total Time Spent with Patient (Minutes): 60 History Interval history: This is a 46-year-old man with obesity, HTN, heart failure reduced EF, CKD (he required hemodialysis last in 2020 post-TAVR in 2020), PAD, thoracic aortic dissection s/p TEVAR who presented to emergency department on 01/10 with 1 week history of progressive shortness of breath associated with bilateral lower extremity swelling and patient reporting that he stopped nifedipine. In the emergency department patient was found to have a systolic blood pressure of 240s with diastolic blood pressures in the 120s and was placed on labetalol drip. Patient was admitted to the hospitalist service for hypertensive emergency, acute on chronic heart failure with consults to cardiology, nephrology and [facility]. Hospital course to date: 01/11: Patient weaned off of drip and restarted on p.o. medications. Blood pressure has been stable and patient will be transferred to the floor. Hospitalist Physical - Constitutional Vitals: Temp Pulse Resp BP Pulse Ox 97.7 F 76 76 H 149/87 90 01/11/22 11:46 01/11/22 15:55 01/11/22 15:00 01/11/22 15:55 01/11/22 16:00 General appearance: Present: no acute distress, well-nourished, obese - EENT Eyes: Present: PERRL, EOM intact ENT: hearing intact, clear oral mucosa, dentition normal - Neck Neck: Present: normal ROM - Respiratory Respiratory effort: normal Respiratory: bilateral: diminished - Cardiovascular Rhythm: regular Heart Sounds: Present: S1 & S2. Absent: systolic murmur, diastolic murmur - Extremities Extremities: no ischemia, pulses intact, pulses symmetrical, No edema, normal temperature, normal color Peripheral Pulses: within normal limits - Abdominal General gastrointestinal: soft, non-tender, non-distended, normal bowel sounds - Integumentary Integumentary: Present: warm, dry - Psychiatric Psychiatric: appropriate mood/affect, cooperative - Neurologic Neurologic: CNII-XII intact, no focal deficits, moves all extremities - Allied Health Allied health notes reviewed: nursing, OT, RT HEART Score - HEART Score Troponin: Troponin T 0.047 ng/mL (0.00-0.029) H 01/10/22 18:29 Results - Labs CBC & Chem 7: 01/11/22 04:32 01/11/22 13:10 Labs: Laboratory Last Values WBC 6.6 K/mm3 (4.5-11.0) 01/11/22 04:32 RBC 3.78 M/mm3 (3.65-5.03) 01/11/22 04:32 Hgb 9.4 gm/dl (11.8-15.2) L 01/11/22 04:32 Hct 30.2 % (35.5-45.6) L 01/11/22 04:32 MCV 80 fl (84-94) L 01/11/22 04:32 MCH 25 pg (28-32) L 01/11/22 04:32 MCHC 31 % (32-34) L 01/11/22 04:32 RDW 18.7 % (13.2-15.2) H 01/11/22 04:32 Plt Count 250 K/mm3 (140-440) 01/11/22 04:32 Lymph % (Auto) 17.9 % (13.4-35.0) 01/11/22 04:32 [place] % (Auto) 8.6 % (0.0-7.3) H 01/11/22 04:32 Eos % (Auto) 7.2 % (0.0-4.3) H 01/11/22 04:32 Baso % (Auto) 1.3 % (0.0-1.8) 01/11/22 04:32 Lymph # (Auto) 1.2 K/mm3 (1.2-5.4) 01/11/22 04:32 [place] # (Auto) 0.6 K/mm3 (0.0-0.8) 01/11/22 04:32 Eos # (Auto) 0.5 K/mm3 (0.0-0.4) H 01/11/22 04:32 Baso # (Auto) 0.1 K/mm3 (0.0-0.1) 01/11/22 04:32 Seg Neutrophils % 65.0 % (40.0-70.0) 01/11/22 04:32 Seg Neutrophils # 4.3 K/mm3 (1.8-7.7) 01/11/22 04:32 Sodium 142 mmol/L (137-145) 01/11/22 13:10 Potassium 3.5 mmol/L (3.6-5.0) L 01/11/22 13:10 Chloride 102.0 mmol/L (98-107) 01/11/22 13:10 Carbon Dioxide 22 mmol/L (22-30) 01/11/22 13:10 Anion Gap 22 mmol/L 01/11/22 13:10 BUN 80 mg/dL (9-20) H 01/11/22 13:10 Creatinine 6.2 mg/dL (0.8-1.3) H 01/11/22 13:10 Estimated GFR 12 ml/min 01/11/22 13:10 BUN/Creatinine Ratio 13 % 01/11/22 13:10 Glucose 130 mg/dL (75-100) H 01/11/22 13:10 Calcium 8.4 mg/dL (8.4-10.2) 01/11/22 13:10 Phosphorus 6.40 mg/dL (2.5-4.5) H 01/11/22 04:32 Iron 27 ug/dL (49-181) L 01/11/22 04:32 TIBC 309 mcg/dL (250-450) 01/11/22 04:32 Total Bilirubin 0.40 mg/dL (0.1-1.2) 01/11/22 13:10 AST 22 units/L (5-40) 01/11/22 13:10 ALT 35 units/L (7-56) 01/11/22 13:10 Alkaline Phosphatase 82 units/L (35-129) 01/11/22 13:10 Lactate Dehydrogenase 242 units/L (91-180) H 01/10/22 12:27 Total Creatine Kinase 169 units/L (55-170) 01/10/22 18:29 CK-MB (CK-2) 5.4 ng/mL (0.0-4.0) H 01/10/22 18:29 CK-MB (CK-2) Rel Index 3.1 (0-4) 01/10/22 18:29 Troponin T 0.047 ng/mL (0.00-0.029) H 01/10/22 18:29 NT-Pro-B Natriuret Pep 31659 pg/mL (0-450) H 01/10/22 02:09 Total Protein 6.4 g/dL (6.3-8.2) 01/11/22 13:10 Albumin 3.9 g/dL (3.9-5) 01/11/22 13:10 Albumin/Globulin Ratio 1.6 % 01/11/22 13:10 Triglycerides 65 mg/dL (2-149) 01/10/22 02:09 Cholesterol 121 mg/dL (50-199) 01/10/22 02:09 LDL Cholesterol Direct 78 mg/dL (50-130) 01/10/22 02:09 HDL Cholesterol 35 mg/dL (40-59) L 01/10/22 02:09 Cholesterol/HDL Ratio 3.45 % 01/10/22 02:09 Urine Color Straw (Yellow) 01/10/22 08:24 Urine Turbidity Clear (Clear) 01/10/22 08:24 Urine pH 6.0 (5.0-7.0) 01/10/22 08:24 Ur Specific [place] 1.006 (1.003-1.030) 01/10/22 08:24 Urine Protein 100 mg/dl mg/dL (Negative) 01/10/22 08:24 Urine Glucose (UA) Neg mg/dL (Negative) 01/10/22 08:24 Urine Ketones Neg mg/dL (Negative) 01/10/22 08:24 Urine Blood Sm (Negative) 01/10/22 08:24 Urine Nitrite Neg (Negative) 01/10/22 08:24 Urine Bilirubin Neg (Negative) 01/10/22 08:24 Urine Urobilinogen < 2.0 mg/dL (<2.0) 01/10/22 08:24 Ur Leukocyte Esterase Neg (Negative) 01/10/22 08:24 Urine WBC (Auto) Not Reportable 01/10/22 08:24 Urine RBC (Auto) 1.0 /HPF (0.0-6.0) 01/10/22 08:24 U Epithel Cells (Auto) < 1.0 /HPF (0-13.0) 01/10/22 08:24 Urine Eosinophils None seen (None Seen) 01/10/22 Unknown Urine Creatinine 193.5 mg/dL (0.1-20.0) H 01/10/22 Unknown Urine Creatinine 195.8 mg/dL (0.1-20.0) H 01/10/22 Unknown Protein/Creatinin Ratio 1.09 01/10/22 Unknown Urine Sodium 22 mmol/L 01/10/22 Unknown Urine Total Protein 210 mg/dL (5-11.8) H 01/10/22 Unknown Hep Bs Antigen Non-reactive (Negative) 01/10/22 12:27 Hepatitis C Antibody Non-reactive (NonReactive) 01/10/22 12:27 Schistocytes Smear None seen 01/10/22 12:27 Active Medications - Current Medications Current Medications: Generic Name Dose Route Start Last Admin Trade Name Freq PRN Reason Stop Dose Admin Acetaminophen 650 mg 01/10/22 10:00 Acetaminophen 325 Mg Tab PO Q6H PRN Pain MILD(1-3)/Fever >100.5/ORNELAS Albuterol 2.5 mg 01/10/22 11:00 Albuterol 2.5 Mg/3 Ml Nebu IH Q3HRT PRN Shortness Of Breath Famotidine 10 mg 01/11/22 10:00 01/11/22 09:36 Famotidine 10 Mg Tab PO 10 mg BID MATILDA Administration Furosemide 40 mg 01/11/22 10:00 01/11/22 17:09 Furosemide 40 Mg/4 Ml Inj IV 40 mg 0600,1800 MATILDA Administration Heparin Sodium (Porcine) 5,000 unit 01/10/22 14:00 01/11/22 15:00 Heparin 5,000 Unit/1 Ml Vial SUB-Q 5,000 unit Q8HR MATILDA Administration Hydralazine HCl 50 mg 01/10/22 10:00 01/11/22 15:55 Hydralazine 25 Mg Tab PO 50 mg Q8HR MATILDA Administration Nicardipine HCl 50 mg/ Sodium 250 mls @ 25 mls/hr 01/10/22 15:30 01/11/22 09:55 Chloride IV 0 mg/hr TITR MATILDA 0 mls/hr Titration Protocol 5 MG/HR Isosorbide Mononitrate 30 mg 01/10/22 16:00 01/11/22 09:36 Isosorbide Mononitrate Er 30 Mg Tab PO 30 mg QDAY MATILDA Administration Labetalol HCl 300 mg 01/10/22 14:00 01/11/22 14:57 Labetalol 100 Mg Tab PO 300 mg TID MATILDA Administration Morphine Sulfate 2 mg 01/10/22 10:00 Morphine 2 Mg/1 Ml Inj IV Q4H PRN Pain, Moderate (4-6) Naloxone HCl 0.1 mg 01/10/22 10:00 Naloxone 0.4 Mg/1 Ml Inj IV Q2MIN PRN Res Rate </= 8 or 02 SAT < 92% Ondansetron HCl 4 mg 01/10/22 10:00 01/11/22 01:22 Ondansetron 4 Mg/2 Ml Inj IV 4 mg Q4H PRN Administration Nausea And Vomiting Senna 8.6 mg 01/10/22 10:00 01/11/22 09:36 Sennosides 8.6 Mg Tab PO 8.6 mg BID MATILDA Administration Sodium Chloride 10 ml 01/10/22 10:00 01/11/22 09:37 Sodium Chloride 0.9% 10 Ml Flush Syringe IV 10 ml BID MATILDA Administration Sodium Chloride 10 ml 01/10/22 10:00 Sodium Chloride 0.9% 10 Ml Flush Syringe IV PRN PRN LINE FLUSH Sodium Chloride 1 applic 01/11/22 10:57 [place] Saline Nasal Gel 14.1 Gm NS PRN PRN Dry Nasal Passages Nutrition/Malnutrition Assess - Dietary Evaluation Nutrition/Malnutrition Findings: Nutrition Notes Start: 01/10/22 19:31 Freq: Status: Active Protocol: Document 01/11/22 10:21 KATIE (Rec: 01/11/22 11:03 KATIE [id number]) Nutrition Notes Need for Assessment generated from: MD Order,library circulation assistant,MST Initial or Follow up Assessment Current Diagnosis Acute Kidney Injury,CKD(stage I-IV),Sepsis,Hypertension, Respiratory Failure Other Pertinent Diagnosis NSTEMI II, HFrEF, BLE Swelling , Pneumonia/COVID-19 pui, OHS, s/p TEVAR. Current Diet Cardiac -Renal- Diet (since L 01/11). Labs/Tests 01/11: CO2 19, BUN 73, Crea 6. 5, Phos 6.4, Fe 27. Pertinent Medications 01/11: Nutritionally unremarkable. Height 5 ft 9 in Weight 108.7 kg [place] Body Weight (kg) 72.72 BMI 35.4 Intake Prior to Admission Poor Weight change and time frame 0.616 Kg body weight loss in 1 day reported. Pt states having, unintentionally, loss between 24 and 33 lb recently, but according to data from last visit on 08/2021, Pt's Bosy weight was 92 Kg and his BMI was 30.0 Kg/m2 Weight Status Obese Subjective/Other Information RD consult for dietary supplementation and risk for malnutrition assessments. No reports available on Pt's PO intake of meals at the time , will assess at F/U. Pt will be benefited from Renal Modification on his diet . Dietary Supplements are not recommended at this time, until %PO intake of meals is known, will assess at F/U. Pt states having, unintentionally, loss between 24 and 33 lb recently, but according to data from last visit on 08/2021, Pt's Body Weight was 92 Kg and his BMI was 30.0 Kg/m2. Pt has last HD on 01/2021, but states that does not want to be on HD, according to Consultation notes. Pt states that is not compliant with dietary recommendations, according to Progress notes. Pt is on Nasal Cannula, O2 saturation @ 90%, according to Physical Assessment History notes. Pt lives at home with and performs his ADL's, according to Case Management notes. Pt continues in critical condition, not a candidate for Nutrition Education at the time, will assess feasibility on F/U. Percent of energy/protein needs met: Prescribed Cardiac -Renal- Diet provides for energy/ protein needs (2,230 Kcal/85 g ) during LOS. Burn Absent Trauma Absent GI Symptoms None Food Allergy No Skin Integrity/Comment Assessment WNL. Minimum of two criteria No #1 Nutrition Diagnosis Altered nutrition-related laboratory values Comments: Pt has RAHEL on CKD IV, besides HFrEF Etiology Pt has RAHEL on CKD IV, besides HFrEF As Evidenced by Signs and Symptoms BLE Swelling, BUN 73, Crea 6.5 . Is patient on ventilator? No Is Patient Ambulatory and/or Out of Bed Yes REE-([place]-ambulatory/OOB) [ [id number] [id number]] Kcal/Kg value to use for calculation 18 Approximate Energy Requirements Using 7 kcal/Kg Calculation Used for Recommendations Kcal/kg Additional Notes Protein: 0.8-1.2 g/Kg AdjBW; 73-109 g/day. Fluids: 1 ml/Kcal, or as per MD. Nutrition Intervention Change Diet Order: Modify Cardiac Diet with Renal modification. Goal #1 Adjust the dietary intervention to better serve Pt's needs and clinical conditions during LOS. Goal #2 Maintain body weight within +/ -3% of admission body weight during LOS. Follow-Up By: 01/15/22 Additional Comments Nutrition education will be provided on F/U, if feasible. Continue monitoring food tolerance, %PO intake of meals , and BM.
[2022-01-12] MEDS: MORPHINE 2 MG/1 ML INJ IV PRN (04:22)
[2022-01-12] MEDS: FUROSEMIDE 40 MG/4 ML INJ IV SCH ×2 (05:30→17:38)
[2022-01-12] MEDS: HEPARIN 5,000 UNIT/1 ML VIAL SUB-Q SCH ×3 (05:30→22:03)
[2022-01-12] MEDS: hydrALAZINE 25 MG TAB PO SCH (05:30)
[2022-01-12 07:35] LABS: Basophils # (Auto) 0.1 K/mm3 (0.0-0.1); Basophils % (Auto) 0.8 % (0.0-1.8); Eosinophils # (Auto) 0.4 K/mm3 (0.0-0.4); Eosinophils % (Auto) 5.3 % (0.0-4.3); Hematocrit 30.5 % (35.5-45.6); Hemoglobin 9.5 gm/dl (11.8-15.2); Lymphocytes # (Auto) 1.1 K/mm3 (1.2-5.4); Lymphocytes % (Auto) 13.7 % (13.4-35.0); Mean Corpuscular HGB Conc 31 % (32-34); Mean Corpuscular Volume 80 fl (84-94); Monocytes # (Auto) 0.7 K/mm3 (0.0-0.8); Monocytes % (Auto) 9.3 % (0.0-7.3); Platelet Count 265 K/mm3 (140-440); Red Cell Distribution Width 18.1 % (13.2-15.2)
--- NOTE | 2022-01-12 10:14 | Progress Note ---
Assessment and Plan Assessment Severe Acute Renal Failure on CKD Acute hypoxemic respiratory failure Obesity hypoventilation syndrome Accelerated hypertension Pneumonia Sepsis Plan No new renal labs noted today at present. Serum creatinine yesterday was 6.2 and prior was 6.0. UOP 900 ml. Serum creatinine was 3.8 in 08/2021. Patient with progressing CKD. Renal ultrasound- Medical Renal Disease. No hydronephrosis DA, ANCA, C3, C4, anti-GBM and SPEP are pending Hepatitis and Schistocytes- negative No IVF challenge due to volume overload On Lasix 40 mg IV BID Renally dose medications Strict I&O's daily Obtain daily weights Monitor renal function closely. Patient continues to refuse HD at this time. Plan of care reviewed by Dr. Mckeon Subjective Date of service: 01/12/22 Principal diagnosis: renal failure Interval history: Patient seen sitting up in bed. metal wire technician at bedside to get today's labs. Reviewed prior labs with patient and discussed need for hemodialysis, patient is against hemodialysis at this time. Objective - Vital Signs Vital signs: Vital Signs - 12hr 01/11/22 01/11/22 01/11/22 23:16 23:20 23:58 Temperature 97.8 F Pulse Rate 76 79 72 Respiratory 24 Rate Blood Pressure 141/88 O2 Sat by Pulse 96 99 96 Oximetry 01/12/22 01/12/22 01/12/22 03:46 04:22 05:30 Temperature 97.7 F Pulse Rate 84 84 Respiratory 20 20 Rate Blood Pressure 176/112 176/112 O2 Sat by Pulse 100 Oximetry 01/12/22 01/12/22 01/12/22 08:17 08:35 08:59 Temperature 98.3 F Pulse Rate 84 85 Respiratory 20 Rate Blood Pressure 176/112 181/117 O2 Sat by Pulse 97 96 Oximetry - General Appearance General appearance: well-developed, appears stated age EENT: ATNC, PERRL, hearing intact, vision intact Neck: no JVD, supple Respiratory: Present: Decreased Breath Sounds Cardiology: S1S2 Gastrointestinal: normoactive bowel sounds Integumentary: warm and dry Neurologic: alert and oriented x3 Musculoskeletal: joint swelling, other (2+ edema to BLE) - Lab 01/12/22 07:16 01/11/22 13:10 Most recent lab results Calcium 8.4 mg/dL (8.4-10.2) 01/11/22 13:10 Phosphorus 6.40 mg/dL (2.5-4.5) H 01/11/22 04:32 Urine Creatinine 193.5 mg/dL (0.1-20.0) H 01/10/22 Unknown Urine Creatinine 195.8 mg/dL (0.1-20.0) H 01/10/22 Unknown Urine Sodium 22 mmol/L 01/10/22 Unknown Urine Total Protein 210 mg/dL (5-11.8) H 01/10/22 Unknown Medications & Allergies - Medications Allergies/Adverse Reactions: Allergies No Known Allergies Allergy (Verified 01/10/22 08:24) Home Medications: Home Medications Medication Instructions Recorded Confirmed Last Taken Type Labetalol HCl [Labetalol 300mg TAB] 300 mg PO TID #90 09/16/21 01/10/22 Unknown Rx NIFEdipine [Procardia Xl] 60 mg PO DAILY #30 09/16/21 01/10/22 Unknown Rx hydrALAZINE [Apresoline TAB] 50 mg PO TID #90 tab 09/16/21 01/10/22 Unknown Rx Active Medications: Generic Name Dose Route Start Last Admin Trade Name Freq PRN Reason Stop Dose Admin Acetaminophen 650 mg 01/10/22 10:00 Acetaminophen 325 Mg Tab PO Q6H PRN Pain MILD(1-3)/Fever >100.5/ORNELAS Albuterol 2.5 mg 01/10/22 11:00 Albuterol 2.5 Mg/3 Ml Nebu IH Q3HRT PRN Shortness Of Breath Famotidine 10 mg 01/11/22 10:00 01/11/22 21:27 Famotidine 10 Mg Tab PO 10 mg BID MATILDA Administration Furosemide 40 mg 01/11/22 10:00 01/12/22 05:30 Furosemide 40 Mg/4 Ml Inj IV 40 mg 0600,1800 MATILDA Administration Heparin Sodium (Porcine) 5,000 unit 01/10/22 14:00 01/12/22 05:30 Heparin 5,000 Unit/1 Ml Vial SUB-Q 5,000 unit Q8HR MATILDA Administration Hydralazine HCl 50 mg 01/10/22 10:00 01/12/22 05:30 Hydralazine 25 Mg Tab PO 50 mg Q8HR MATILDA Administration Isosorbide Mononitrate 30 mg 01/10/22 16:00 01/11/22 09:36 Isosorbide Mononitrate Er 30 Mg Tab PO 30 mg QDAY MATILDA Administration Labetalol HCl 300 mg 01/10/22 14:00 01/12/22 08:17 Labetalol 100 Mg Tab PO 300 mg TID MATILDA Administration Morphine Sulfate 2 mg 01/10/22 10:00 01/12/22 04:22 Morphine 2 Mg/1 Ml Inj IV 2 mg Q4H PRN Administration Pain, Moderate (4-6) Naloxone HCl 0.1 mg 01/10/22 10:00 Naloxone 0.4 Mg/1 Ml Inj IV Q2MIN PRN Res Rate </= 8 or 02 SAT < 92% Ondansetron HCl 4 mg 01/10/22 10:00 01/11/22 01:22 Ondansetron 4 Mg/2 Ml Inj IV 4 mg Q4H PRN Administration Nausea And Vomiting Senna 8.6 mg 01/10/22 10:00 01/11/22 21:27 Sennosides 8.6 Mg Tab PO 8.6 mg BID MATILDA Administration Sodium Chloride 10 ml 01/10/22 10:00 01/11/22 21:28 Sodium Chloride 0.9% 10 Ml Flush Syringe IV 10 ml BID MATILDA Administration Sodium Chloride 10 ml 01/10/22 10:00 Sodium Chloride 0.9% 10 Ml Flush Syringe IV PRN PRN LINE FLUSH Sodium Chloride 1 applic 01/11/22 10:57 [place] Saline Nasal Gel 14.1 Gm NS PRN PRN Dry Nasal Passages
[2022-01-12] MEDS ORDERED: hydrALAZINE 25 MG TAB PO SCH (10:17)
[2022-01-12] MEDS: SENNOSIDES 8.6 MG TAB PO SCH ×2 (10:32→22:03)
[2022-01-12] MEDS: FAMOTIDINE 10 MG TAB PO SCH ×2 (10:32→22:04)
[2022-01-12] MEDS: hydrALAZINE 100 MG TAB PO SCH ×3 (10:45→22:02)
[2022-01-12 12:21] LABS: Albumin 4.5 g/dL (3.9-5); Calcium 9.1 mg/dL (8.4-10.2)
--- NOTE | 2022-01-12 12:57 | Progress Note ---
Assessment and Plan NSTEMI type II * Troponin is mildly elevated and subacute. Trending downward. We will continue to trend * Patient is chest pain-free. Twelve-lead shows no acute ischemic changes. Acute on chronic heart failure reduced ejection fraction * Echocardiogram 01/10/2022: LVEF 40%. Findings consistent with severe volume overload. * GDMT as tolerated: Aspirin 81 mg daily, atorvastatin 40 mg nightly, labetalol 300 mg twice daily. No BRENDA/ARB in setting of renal failure. * Volume is being managed per nephrology. Agree with Lasix 40 mg IV twice daily. Hypertensive urgency * Hypertension is improving. Continue to titrate medications. Ultimately patient is volume overloaded. End-stage renal disease * Creatinine is severely elevated. Patient is refusing hemodialysis. Nephrology is following. Avoid nephrotoxic agents. Will follow Patient seen in conjunction with Dr. Iglesias who agrees with the assessment and management of this patient. - Patient Problems (1) Hypertensive urgency Current Visit: Yes Status: Acute (2) Status post insertion of endovascular thoracic aortic stent graft Current Visit: Yes Status: Acute (3) Acute on chronic HFrEF (heart failure with reduced ejection fraction) Current Visit: Yes Status: Acute (4) Acute kidney injury superimposed on chronic kidney disease Current Visit: Yes Status: Acute (5) Elevated troponin Current Visit: Yes Status: Acute (6) Acute hypoxemic respiratory failure Current Visit: Yes Status: Acute Subjective Date of service: 01/12/22 Principal diagnosis: renal failure Interval history: Patient is resting comfortably in bed. No complaints overnight Telemetry shows sinus rhythm heart rate 80, no events Objective Last Vital Signs Temp 98.1 F 01/12/22 11:38 Pulse 83 01/12/22 11:38 Resp 20 01/12/22 11:38 BP 159/99 01/12/22 11:38 Pulse Ox 92 01/12/22 11:38 - Physical Examination General: Appears Well HEENT: Positive: Normocephaly, Mucus Membranes Moist Neck: Positive: trachea midline Cardiac: Positive: Reg Rate and Rhythm Lungs: Positive: Normal Exam Neuro: Positive: Grossly Intact Abdomen: Positive: Unremarkable, Soft, Active Bowel Sounds Skin: Negative: Rash Extremities: Present: upper extr. pulses (2+), +2 Edema (Bilateral lower extremities), warm - Labs and Meds Cardiac Enzymes 01/11/22 01/12/22 Range/Units 13:10 11:08 AST 22 17 (5-40) units/L CBC 01/12/22 Range/Units 07:16 WBC 8.0 (4.5-11.0) K/mm3 RBC 3.80 (3.65-5.03) M/mm3 Hgb 9.5 L (11.8-15.2) gm/dl Hct 30.5 L (35.5-45.6) % Plt Count 265 (140-440) K/mm3 Lymph # (Auto) 1.1 L (1.2-5.4) K/mm3 [place] # (Auto) 0.7 (0.0-0.8) K/mm3 Eos # (Auto) 0.4 (0.0-0.4) K/mm3 Baso # (Auto) 0.1 (0.0-0.1) K/mm3 Comprehensive Metabolic Panel 01/11/22 01/12/22 Range/Units 13:10 11:08 Sodium 142 140 (137-145) mmol/L Potassium 3.5 L 3.4 L (3.6-5.0) mmol/L Chloride 102.0 101.1 (98-107) mmol/L Carbon Dioxide 22 18 L (22-30) mmol/L BUN 80 H 79 H (9-20) mg/dL Creatinine 6.2 H 6.5 H (0.8-1.3) mg/dL Glucose 130 H 109 H (75-100) mg/dL Calcium 8.4 9.1 (8.4-10.2) mg/dL AST 22 17 (5-40) units/L ALT 35 39 (7-56) units/L Alkaline Phosphatase 82 91 (35-129) units/L Total Protein 6.4 6.5 (6.3-8.2) g/dL Albumin 3.9 4.5 (3.9-5) g/dL - Imaging and Cardiology EKG: image reviewed Echo: report reviewed (Echocardiogram 01/10/2022: LVEF 40%. LV SF moderately decreased. Severe LVH. RV is hypokinetic and dilated with flattened septum consistent with RV volume overload. Mild MR, left atrium severely dilated. Mild TR, right atrium dilated. RVSP is 33 mmHg.) - Telemetry EKG Rhythm: Sinus Rhythm - EKG Sinus rhythms and dysrhythmias: sinus rhythm Repolarization changes or abnormalities: nonspecific abnormality, ST segment, and/or T wave
[2022-01-12] MEDS ORDERED: AYR SALINE NASAL GEL 14.1 GM NS PRN (13:00)
--- NOTE | 2022-01-12 14:13 | Progress Note ---
Assessment and Plan 46 y/o obese male admitted with shortness of breath, found to be in hypertensive emergency and chronic vs acute on chronic renal failure with bilateral LE Edema and pulmonary edema 01/12/22: Stable pulm moody. ICU had concerns about BIANKA. Patient can follow up with Dr. Berumen in our office for a new sleep patient in 2-4 weeks. 1. Give all oral meds 2. Attempt to turn drip off again 3. Suggest changing BP paraments to systolics of 150 as to not drop him to low to fast 4. needs bianka screening as outpatient 5. Hopeful transfer out to floor this after noon or to an approved [place] facility as patient is stable for transfer now. CCT 31 minutes. Subjective Date of service: 01/12/22 Principal diagnosis: renal failure Interval history: Successful transfer to floor. Weaned to room air and good sats. Objective - Constitutional Vitals: Vital Signs - 12hr 01/12/22 01/12/22 01/12/22 03:46 04:22 05:30 Temperature 97.7 F Pulse Rate 84 84 Respiratory 20 20 Rate Blood Pressure 176/112 176/112 O2 Sat by Pulse 100 Oximetry 01/12/22 01/12/22 01/12/22 08:17 08:35 08:59 Temperature 98.3 F Pulse Rate 84 85 Respiratory 20 Rate Blood Pressure 176/112 181/117 O2 Sat by Pulse 97 96 Oximetry 01/12/22 01/12/22 01/12/22 10:25 10:32 11:38 Temperature 98.1 F Pulse Rate 79 85 83 Respiratory 20 Rate Blood Pressure 154/100 181/117 159/99 O2 Sat by Pulse 96 92 Oximetry - Labs CBC & Chem 7: 01/12/22 07:16 01/12/22 11:08 Labs: Abnormal lab results 01/12/22 01/12/22 Range/Units 07:16 11:08 Hgb 9.5 L (11.8-15.2) gm/dl Hct 30.5 L (35.5-45.6) % MCV 80 L (84-94) fl MCH 25 L (28-32) pg MCHC 31 L (32-34) % RDW 18.1 H (13.2-15.2) % [place] % (Auto) 9.3 H (0.0-7.3) % Eos % (Auto) 5.3 H (0.0-4.3) % Lymph # (Auto) 1.1 L (1.2-5.4) K/mm3 Seg Neutrophils % 70.9 H (40.0-70.0) % Potassium 3.4 L (3.6-5.0) mmol/L Carbon Dioxide 18 L (22-30) mmol/L BUN 79 H (9-20) mg/dL Creatinine 6.5 H (0.8-1.3) mg/dL Glucose 109 H (75-100) mg/dL Medications & Allergies - Medications Allergies/Adverse Reactions: Allergies No Known Allergies Allergy (Verified 01/10/22 08:24) Home Medications: Home Medications Medication Instructions Recorded Confirmed Last Taken Type Labetalol HCl [Labetalol 300mg TAB] 300 mg PO TID #90 09/16/21 01/10/22 Unknown Rx NIFEdipine [Procardia Xl] 60 mg PO DAILY #30 09/16/21 01/10/22 Unknown Rx hydrALAZINE [Apresoline TAB] 50 mg PO TID #90 tab 09/16/21 01/10/22 Unknown Rx Active Medications: Generic Name Dose Route Start Last Admin Trade Name Freq PRN Reason Stop Dose Admin Acetaminophen 650 mg 01/10/22 10:00 Acetaminophen 325 Mg Tab PO Q6H PRN Pain MILD(1-3)/Fever >100.5/ORNELAS Albuterol 2.5 mg 01/10/22 11:00 Albuterol 2.5 Mg/3 Ml Nebu IH Q3HRT PRN Shortness Of Breath Famotidine 10 mg 01/11/22 10:00 01/12/22 10:32 Famotidine 10 Mg Tab PO 10 mg BID MATILDA Administration Furosemide 40 mg 01/11/22 10:00 01/12/22 05:30 Furosemide 40 Mg/4 Ml Inj IV 40 mg 0600,1800 MATILDA Administration Heparin Sodium (Porcine) 5,000 unit 01/10/22 14:00 01/12/22 05:30 Heparin 5,000 Unit/1 Ml Vial SUB-Q 5,000 unit Q8HR MATILDA Administration Hydralazine HCl 100 mg 01/12/22 10:30 01/12/22 10:45 Hydralazine 100 Mg Tab PO 100 mg Q8HR MATILDA Administration Isosorbide Mononitrate 30 mg 01/10/22 16:00 01/12/22 10:32 Isosorbide Mononitrate Er 30 Mg Tab PO 30 mg QDAY MATILDA Administration Labetalol HCl 300 mg 01/12/22 22:00 Labetalol 100 Mg Tab PO BID MATILDA Morphine Sulfate 2 mg 01/10/22 10:00 01/12/22 04:22 Morphine 2 Mg/1 Ml Inj IV 2 mg Q4H PRN Administration Pain, Moderate (4-6) Naloxone HCl 0.1 mg 01/10/22 10:00 Naloxone 0.4 Mg/1 Ml Inj IV Q2MIN PRN Res Rate </= 8 or 02 SAT < 92% Ondansetron HCl 4 mg 01/10/22 10:00 01/11/22 01:22 Ondansetron 4 Mg/2 Ml Inj IV 4 mg Q4H PRN Administration Nausea And Vomiting Senna 8.6 mg 01/10/22 10:00 01/12/22 10:32 Sennosides 8.6 Mg Tab PO 8.6 mg BID MATILDA Administration Sodium Chloride 10 ml 01/10/22 10:00 01/12/22 10:33 Sodium Chloride 0.9% 10 Ml Flush Syringe IV 10 ml BID MATILDA Administration Sodium Chloride 10 ml 01/10/22 10:00 Sodium Chloride 0.9% 10 Ml Flush Syringe IV PRN PRN LINE FLUSH Sodium Chloride 1 applic 01/12/22 13:00 [place] Saline Nasal Gel 14.1 Gm NS PRN PRN Dry Nasal Passages HEART Score - HEART Score Troponin: Troponin T 0.047 ng/mL (0.00-0.029) H 01/10/22 18:29
[2022-01-12] MEDS ORDERED: POTASSIUM CHLORIDE ER 20 MEQ TAB PO ONE (16:17)
--- NOTE | 2022-01-12 16:26 | Progress Note ---
Assessment and Plan Assessment and plan: This is a 46-year-old male with obesity, hypertension, HFrEF, CKD s/p TEVAR admitted with acute on chronic heart failure, acute kidney injury, hypertensive urgency #Hypertensive emergencyresolved #Acute on chronic systolic heart failureimproving #Status post thoracic aneurysm status post TEVAR (2020) Status post labetalol drip in MICU - Continue CHF exacerbation protocol: Telemetry, Strict I/O, monitor urine output every shift, daily weights, afterload reduction, low-sodium diet, and fluid restriction of approximately 1.5 mL/day - ProBNP on admission: - Cardiology consulted; appreciate recs - TTE (01/11/2022) reveals TTE revealing EF 40%, mild to moderately decreased LV systolic function, normal LV size, moderate to severe concentric LVH, flattened septum consistent with RV volume overload, hypokinetic RV, severely dilated LA, dilated RA, and RVSP 35 mmHg. - Continue P.o. hydralazine 100 mg every 8 hours, Imdur 30 mg daily, labetalol 300 mg twice daily #Acute hypoxic respiratory failureresolved - etiology: Volume overload in setting of acute on chronic systolic heart failure - baseline oxygen requirements: None - supplemental oxygen: 4 L - Continue protocol: continue pulse oximetry, wean oxygen as tolerated, ordered incentive spirometry and educated patient on how to use it and its importance. - continue to monitor #CKD stage V Creatinine 6.5 -Nephrology consulted, appreciate recommendations Patient refusing initiation of hemodialysis. Continuing IV diuresis with Lasix 20 mg twice daily -Renal ultrasound increased cortical echogenicity suggest bilateral medical renal disease, no evidence of renal mass or hydronephrosis Renally dose meds and avoid nephrotoxic meds. Continue to monitor with daily BMP. #Hypokalemia Potassium 3.4 Repleted. Continue to monitor. #Morbid obesity #Weight loss counseling #Exercise counseling - BMI 35.4 - Counseled patient on the importance of weight loss, incorporating exercise, and dietary changes (lean meats, fresh fruits and vegetables, and water intake). Patient expresses understanding. - Time: + 15 min #Advanced care planning -Disease education conducted, care plan discussed, diagnoses discussed, prognosis discussed, and patient acknowledges understanding with care plan -Time: +30 min Disposition Plan: Continue medical management Total Time Spent with Patient (Minutes): 45 minutes History Interval history: No acute events overnight. Hospitalist Physical - Constitutional Vitals: Temp Pulse Resp BP Pulse Ox 98.1 F 83 20 159/99 92 01/12/22 11:38 01/12/22 11:38 01/12/22 11:38 01/12/22 11:38 01/12/22 11:38 General appearance: Present: no acute distress, well-nourished, obese - EENT Eyes: Present: PERRL, EOM intact ENT: hearing intact, clear oral mucosa, dentition normal - Neck Neck: Present: supple, normal ROM - Respiratory Respiratory effort: normal Respiratory: bilateral: CTA - Cardiovascular Rhythm: regular Heart Sounds: Present: S1 & S2 - Extremities Extremities: no ischemia, pulses intact, pulses symmetrical, normal temperature, normal color, Full ROM Extremity abnormal: edema (1+ pitting edema bilateral lower extremities) Peripheral Pulses: within normal limits - Abdominal General gastrointestinal: soft, non-tender, non-distended, normal bowel sounds - Integumentary Integumentary: Present: clear, warm, dry - Psychiatric Psychiatric: appropriate mood/affect, intact judgment & insight, cooperative - Neurologic Neurologic: CNII-XII intact, moves all extremities - Allied Health Allied health notes reviewed: nursing HEART Score - HEART Score Troponin: Troponin T 0.047 ng/mL (0.00-0.029) H 01/10/22 18:29 Results - Labs CBC & Chem 7: 01/12/22 07:16 01/12/22 11:08 Labs: Laboratory Last Values WBC 8.0 K/mm3 (4.5-11.0) 01/12/22 07:16 RBC 3.80 M/mm3 (3.65-5.03) 01/12/22 07:16 Hgb 9.5 gm/dl (11.8-15.2) L 01/12/22 07:16 Hct 30.5 % (35.5-45.6) L 01/12/22 07:16 MCV 80 fl (84-94) L 01/12/22 07:16 MCH 25 pg (28-32) L 01/12/22 07:16 MCHC 31 % (32-34) L 01/12/22 07:16 RDW 18.1 % (13.2-15.2) H 01/12/22 07:16 Plt Count 265 K/mm3 (140-440) 01/12/22 07:16 Lymph % (Auto) 13.7 % (13.4-35.0) 01/12/22 07:16 [place] % (Auto) 9.3 % (0.0-7.3) H 01/12/22 07:16 Eos % (Auto) 5.3 % (0.0-4.3) H 01/12/22 07:16 Baso % (Auto) 0.8 % (0.0-1.8) 01/12/22 07:16 Lymph # (Auto) 1.1 K/mm3 (1.2-5.4) L 01/12/22 07:16 [place] # (Auto) 0.7 K/mm3 (0.0-0.8) 01/12/22 07:16 Eos # (Auto) 0.4 K/mm3 (0.0-0.4) 01/12/22 07:16 Baso # (Auto) 0.1 K/mm3 (0.0-0.1) 01/12/22 07:16 Seg Neutrophils % 70.9 % (40.0-70.0) H 01/12/22 07:16 Seg Neutrophils # 5.6 K/mm3 (1.8-7.7) 01/12/22 07:16 Sodium 140 mmol/L (137-145) 01/12/22 11:08 Potassium 3.4 mmol/L (3.6-5.0) L 01/12/22 11:08 Chloride 101.1 mmol/L (98-107) 01/12/22 11:08 Carbon Dioxide 18 mmol/L (22-30) L 01/12/22 11:08 Anion Gap 24 mmol/L 01/12/22 11:08 BUN 79 mg/dL (9-20) H 01/12/22 11:08 Creatinine 6.5 mg/dL (0.8-1.3) H 01/12/22 11:08 Estimated GFR 11 ml/min 01/12/22 11:08 BUN/Creatinine Ratio 12 % 01/12/22 11:08 Glucose 109 mg/dL (75-100) H 01/12/22 11:08 Calcium 9.1 mg/dL (8.4-10.2) 01/12/22 11:08 Phosphorus 6.40 mg/dL (2.5-4.5) H 01/11/22 04:32 Iron 27 ug/dL (49-181) L 01/11/22 04:32 TIBC 309 mcg/dL (250-450) 01/11/22 04:32 Total Bilirubin 0.50 mg/dL (0.1-1.2) 01/12/22 11:08 AST 17 units/L (5-40) 01/12/22 11:08 ALT 39 units/L (7-56) 01/12/22 11:08 Alkaline Phosphatase 91 units/L (35-129) 01/12/22 11:08 Lactate Dehydrogenase 242 units/L (91-180) H 01/10/22 12:27 Total Creatine Kinase 169 units/L (55-170) 01/10/22 18:29 CK-MB (CK-2) 5.4 ng/mL (0.0-4.0) H 01/10/22 18: CK-MB (CK-2) Rel Index 3.1 (0-4) 01/10/22 18:29 Troponin T 0.047 ng/mL (0.00-0.029) H 01/10/22 18:29 NT-Pro-B Natriuret Pep 00457 pg/mL (0-450) H 01/10/22 02:09 Total Protein 6.5 g/dL (6.3-8.2) 01/12/22 11:08 Albumin 4.5 g/dL (3.9-5) 01/12/22 11:08 Albumin/Globulin Ratio 2.3 % 01/12/22 11:08 Triglycerides 65 mg/dL (2-149) 01/10/22 02:09 Cholesterol 121 mg/dL (50-199) 01/10/22 02:09 LDL Cholesterol Direct 78 mg/dL (50-130) 01/10/22 02:09 HDL Cholesterol 35 mg/dL (40-59) L 01/10/22 02:09 Cholesterol/HDL Ratio 3.45 % 01/10/22 02:09 Urine Color Straw (Yellow) 01/10/22 08:24 Urine Turbidity Clear (Clear) 01/10/22 08:24 Urine pH 6.0 (5.0-7.0) 01/10/22 08:24 Ur Specific Needles 1.006 (1.003-1.030) 01/10/22 08:24 Urine Protein 100 mg/dl mg/dL (Negative) 01/10/22 08:24 Urine Glucose (UA) Neg mg/dL (Negative) 01/10/22 08:24 Urine Ketones Neg mg/dL (Negative) 01/10/22 08:24 Urine Blood Sm (Negative) 01/10/22 08:24 Urine Nitrite Neg (Negative) 01/10/22 08:24 Urine Bilirubin Neg (Negative) 01/10/22 08:24 Urine Urobilinogen < 2.0 mg/dL (<2.0) 01/10/22 08:24 Ur Leukocyte Esterase Neg (Negative) 01/10/22 08:24 Urine WBC (Auto) Not Reportable 01/10/22 08:24 Urine RBC (Auto) 1.0 /HPF (0.0-6.0) 01/10/22 08:24 U Epithel Cells (Auto) < 1.0 /HPF (0-13.0) 01/10/22 08:24 Urine Eosinophils None seen (None Seen) 01/10/22 Unknown Urine Creatinine 193.5 mg/dL (0.1-20.0) H 01/10/22 Unknown Urine Creatinine 195.8 mg/dL (0.1-20.0) H 01/10/22 Unknown Protein/Creatinin Ratio 1.09 01/10/22 Unknown Urine Sodium 22 mmol/L 01/10/22 Unknown Urine Total Protein 210 mg/dL (5-11.8) H 01/10/22 Unknown Hep Bs Antigen Non-reactive (Negative) 01/10/22 12:27 Hepatitis C Antibody Non-reactive (NonReactive) 01/10/22 12:27 Schistocytes Smear None seen 01/10/22 12:27 Uriostegui/IV: Voiding Method Urinal Active Medications - Current Medications Current Medications: Generic Name Dose Route Start Last Admin Trade Name Freq PRN Reason Stop Dose Admin Acetaminophen 650 mg 01/10/22 10:00 Acetaminophen 325 Mg Tab PO Q6H PRN Pain MILD(1-3)/Fever >100.5/ORNELAS Albuterol 2.5 mg 01/10/22 11:00 Albuterol 2.5 Mg/3 Ml Nebu IH Q3HRT PRN Shortness Of Breath Famotidine 10 mg 01/11/22 10:00 01/12/22 10:32 Famotidine 10 Mg Tab PO 10 mg BID MATILDA Administration Furosemide 40 mg 01/11/22 10:00 01/12/22 05:30 Furosemide 40 Mg/4 Ml Inj IV 40 mg 0600,1800 MATILDA Administration Heparin Sodium (Porcine) 5,000 unit 01/10/22 14:00 01/12/22 14:45 Heparin 5,000 Unit/1 Ml Vial SUB-Q 5,000 unit Q8HR MATILDA Administration Hydralazine HCl 100 mg 01/12/22 10:30 01/12/22 14:45 Hydralazine 100 Mg Tab PO 100 mg Q8HR MATILDA Administration Isosorbide Mononitrate 30 mg 01/10/22 16:00 01/12/22 10:32 Isosorbide Mononitrate Er 30 Mg Tab PO 30 mg QDAY MATILDA Administration Labetalol HCl 300 mg 01/12/22 22:00 Labetalol 100 Mg Tab PO BID MATILDA Morphine Sulfate 2 mg 01/10/22 10:00 01/12/22 04:22 Morphine 2 Mg/1 Ml Inj IV 2 mg Q4H PRN Administration Pain, Moderate (4-6) Naloxone HCl 0.1 mg 01/10/22 10:00 Naloxone 0.4 Mg/1 Ml Inj IV Q2MIN PRN Res Rate </= 8 or 02 SAT < 92% Ondansetron HCl 4 mg 01/10/22 10:00 01/11/22 01:22 Ondansetron 4 Mg/2 Ml Inj IV 4 mg Q4H PRN Administration Nausea And Vomiting Potassium Chloride 40 meq 01/12/22 16:17 Potassium Chloride Er 20 Meq Tab PO 01/12/22 16:18 ONCE ONE Senna 8.6 mg 01/10/22 10:00 01/12/22 10:32 Sennosides 8.6 Mg Tab PO 8.6 mg BID MATILDA Administration Sodium Chloride 10 ml 01/10/22 10:00 01/12/22 10:33 Sodium Chloride 0.9% 10 Ml Flush Syringe IV 10 ml BID MATILDA Administration Sodium Chloride 10 ml 01/10/22 10:00 Sodium Chloride 0.9% 10 Ml Flush Syringe IV PRN PRN LINE FLUSH Sodium Chloride 1 applic 01/12/22 13:00 04/20/22 14:40 [place] Saline Nasal Gel 14.1 Gm NS 1 applic PRN PRN Administration Dry Nasal Passages Nutrition/Malnutrition Assess - Dietary Evaluation Nutrition/Malnutrition Findings: Nutrition Notes Start: 01/10/22 19:31 Freq: Status: Active Protocol: Document 01/11/22 10:21 KATIE (Rec: 01/11/22 11:03 KATIE [id number]) Nutrition Notes Need for Assessment generated from: MD Order,pourer bull ladle,MST Initial or Follow up Assessment Current Diagnosis Acute Kidney Injury,CKD(stage I-IV),Sepsis,Hypertension, Respiratory Failure Other Pertinent Diagnosis NSTEMI II, HFrEF, BLE Swelling , Pneumonia/COVID-19 pui, OHS, s/p TEVAR. Current Diet Cardiac -Renal- Diet (since L 01/11). Labs/Tests 01/11: CO2 19, BUN 73, Crea 6. 5, Phos 6.4, Fe 27. Pertinent Medications 01/11: Nutritionally unremarkable. Height 5 ft 9 in Weight 108.7 kg [place] Body Weight (kg) 72.72 BMI 35.4 Intake Prior to Admission Poor Weight change and time frame 0.616 Kg body weight loss in 1 day reported. Pt states having, unintentionally, loss between 24 and 33 lb recently, but according to data from last visit on 08/2021, Pt's Bosy weight was 92 Kg and his BMI was 30.0 Kg/m2 Weight Status Obese Subjective/Other Information RD consult for dietary supplementation and risk for malnutrition assessments. No reports available on Pt's PO intake of meals at the time , will assess at F/U. Pt will be benefited from Renal Modification on his diet . Dietary Supplements are not recommended at this time, until %PO intake of meals is known, will assess at F/U. Pt states having, unintentionally, loss between 24 and 33 lb recently, but according to data from last visit on 08/2021, Pt's Body Weight was 92 Kg and his BMI was 30.0 Kg/m2. Pt has last HD on 01/2021, but states that does not want to be on HD, according to Consultation notes. Pt states that is not compliant with dietary recommendations, according to Progress notes. Pt is on Nasal Cannula, O2 saturation @ 90%, according to Physical Assessment History notes. Pt lives at home with and performs his ADL's, according to Case Management notes. Pt continues in critical condition, not a candidate for Nutrition Education at the time, will assess feasibility on F/U. Percent of energy/protein needs met: Prescribed Cardiac -Renal- Diet provides for energy/ protein needs (2,230 Kcal/85 g ) during LOS. Burn Absent Trauma Absent GI Symptoms None Food Allergy No Skin Integrity/Comment Assessment WNL. Minimum of two criteria No #1 Nutrition Diagnosis Altered nutrition-related laboratory values Comments: Pt has RAHEL on CKD IV, besides HFrEF Etiology Pt has RAHEL on CKD IV, besides HFrEF As Evidenced by Signs and Symptoms BLE Swelling, BUN 73, Crea 6.5 . Is patient on ventilator? No Is Patient Ambulatory and/or Out of Bed Yes REE-(Marshall-St. Jeor-ambulatory/OOB) [ 2557.594 NUTR.[id number]] Kcal/Kg value to use for calculation 18 Approximate Energy Requirements Using 7 kcal/Kg Calculation Used for Recommendations Kcal/kg Additional Notes Protein: 0.8-1.2 g/Kg AdjBW; 73-109 g/day. Fluids: 1 ml/Kcal, or as per MD. Nutrition Intervention Change Diet Order: Modify Cardiac Diet with Renal modification. Goal #1 Adjust the dietary intervention to better serve Pt's needs and clinical conditions during LOS. Goal #2 Maintain body weight within +/ -3% of admission body weight during LOS. Follow-Up By: 01/15/22 Additional Comments Nutrition education will be provided on F/U, if feasible. Continue monitoring food tolerance, %PO intake of meals , and BM.
[2022-01-12 21:40] LABS: Myeloperoxidase Antibody <1.0 AI (<1.0)
[2022-01-13] MEDS: HEPARIN 5,000 UNIT/1 ML VIAL SUB-Q SCH ×3 (05:29→22:03)
[2022-01-13] MEDS: FUROSEMIDE 40 MG/4 ML INJ IV SCH ×2 (05:29→17:52)
[2022-01-13] MEDS: hydrALAZINE 100 MG TAB PO SCH ×3 (05:29→22:05)
[2022-01-13] MEDS: MORPHINE 2 MG/1 ML INJ IV PRN (05:45)
[2022-01-13] MEDS: hydrALAZINE 20 MG/1 ML INJ IV PRN (07:41)
[2022-01-13 08:02] LABS: Basophils # (Auto) 0.2 K/mm3 (0.0-0.1); Basophils % (Auto) 1.8 % (0.0-1.8); Eosinophils # (Auto) 0.3 K/mm3 (0.0-0.4); Eosinophils % (Auto) 3.7 % (0.0-4.3); Hematocrit 29.9 % (35.5-45.6); Hemoglobin 9.5 gm/dl (11.8-15.2); Lymphocytes # (Auto) 1.1 K/mm3 (1.2-5.4); Lymphocytes % (Auto) 12.6 % (13.4-35.0); Mean Corpuscular HGB Conc 32 % (32-34); Mean Corpuscular Volume 79 fl (84-94); Monocytes # (Auto) 0.8 K/mm3 (0.0-0.8); Monocytes % (Auto) 9.1 % (0.0-7.3); Platelet Count 299 K/mm3 (140-440); Red Cell Distribution Width 18.2 % (13.2-15.2)
[2022-01-13 08:19] LABS: Albumin 4.7 g/dL (3.9-5); Calcium 9.6 mg/dL (8.4-10.2)
--- NOTE | 2022-01-13 08:54 | Progress Note ---
Assessment and Plan Severe Acute Renal Failure on CKD Acute hypoxemic respiratory failure Obesity hypoventilation syndrome Accelerated hypertension Pneumonia Sepsis Plan BMP from yesterday showing stable Cr, good UOP Serum creatinine was 3.8 in 08/2021. Patient with progressing CKD. Renal ultrasound- Medical Renal Disease. No hydronephrosis DA, ANCA, C3, C4, anti-GBM and SPEP are pending Hepatitis and Schistocytes- negative No IVF challenge due to volume overload On Lasix 40 mg IV BID Renally dose medications Strict I&O's daily Obtain daily weights Monitor renal function closely. Patient continues to refuse HD at this time. Subjective Date of service: 01/13/22 Principal diagnosis: renal failure Interval history: making urine Objective - Vital Signs Vital signs: Vital Signs - 12hr 01/12/22 01/12/22 01/13/22 22:00 22:03 00:00 Temperature Pulse Rate 89 89 Respiratory Rate Blood Pressure 195/117 Blood Pressure [Right] O2 Sat by Pulse 98 98 Oximetry 01/13/22 01/13/22 01/13/22 04:00 05:45 07:45 Temperature 98.9 F 98.3 F Pulse Rate 93 H 91 H Respiratory 20 20 20 Rate Blood Pressure 199/108 Blood Pressure 191/108 [Right] O2 Sat by Pulse 96 96 Oximetry 01/13/22 01/13/22 07:59 08:00 Temperature Pulse Rate Respiratory Rate Blood Pressure Blood Pressure [Right] O2 Sat by Pulse 97 98 Oximetry - Lab 01/13/22 07:35 01/13/22 Unknown Most recent lab results Calcium 9.6 mg/dL (8.4-10.2) 01/13/22 Unknown Phosphorus 5.00 mg/dL (2.5-4.5) H 01/13/22 07:35 Urine Creatinine 193.5 mg/dL (0.1-20.0) H 01/10/22 Unknown Urine Creatinine 195.8 mg/dL (0.1-20.0) H 01/10/22 Unknown Urine Sodium 22 mmol/L 01/10/22 Unknown Urine Total Protein 210 mg/dL (5-11.8) H 01/10/22 Unknown Medications & Allergies - Medications Allergies/Adverse Reactions: Allergies No Known Allergies Allergy (Verified 01/10/22 08:24) Home Medications: Home Medications Medication Instructions Recorded Confirmed Last Taken Type Labetalol HCl [Labetalol 300mg TAB] 300 mg PO TID #90 09/16/21 01/10/22 Unknown Rx NIFEdipine [Procardia Xl] 60 mg PO DAILY #30 09/16/21 01/10/22 Unknown Rx hydrALAZINE [Apresoline TAB] 50 mg PO TID #90 tab 09/16/21 01/10/22 Unknown Rx Active Medications: Generic Name Dose Route Start Last Admin Trade Name Freq PRN Reason Stop Dose Admin Acetaminophen 650 mg 01/10/22 10:00 Acetaminophen 325 Mg Tab PO Q6H PRN Pain MILD(1-3)/Fever >100.5/ORNELAS Albuterol 2.5 mg 01/10/22 11:00 Albuterol 2.5 Mg/3 Ml Nebu IH Q3HRT PRN Shortness Of Breath Famotidine 10 mg 01/11/22 10:00 01/12/22 22:04 Famotidine 10 Mg Tab PO 10 mg BID MATILDA Administration Furosemide 40 mg 01/11/22 10:00 01/13/22 05:29 Furosemide 40 Mg/4 Ml Inj IV 40 mg 0600,1800 MATILDA Administration Heparin Sodium (Porcine) 5,000 unit 01/10/22 14:00 01/13/22 05:29 Heparin 5,000 Unit/1 Ml Vial SUB-Q 5,000 unit Q8HR MATILDA Administration Hydralazine HCl 100 mg 01/12/22 10:30 01/13/22 05:29 Hydralazine 100 Mg Tab PO 100 mg Q8HR MATILDA Administration Hydralazine HCl 10 mg 01/13/22 05:51 01/13/22 07:41 Hydralazine 20 Mg/1 Ml Inj IV 10 mg Q6H PRN Administration Blood Pressure Isosorbide Mononitrate 30 mg 01/10/22 16:00 01/12/22 10:32 Isosorbide Mononitrate Er 30 Mg Tab PO 30 mg QDAY MATILDA Administration Labetalol HCl 300 mg 01/12/22 22:00 01/12/22 22:03 Labetalol 100 Mg Tab PO 300 mg BID MATILDA Administration Morphine Sulfate 2 mg 01/10/22 10:00 01/13/22 05:45 Morphine 2 Mg/1 Ml Inj IV 2 mg Q4H PRN Administration Pain, Moderate (4-6) Naloxone HCl 0.1 mg 01/10/22 10:00 Naloxone 0.4 Mg/1 Ml Inj IV Q2MIN PRN Res Rate </= 8 or 02 SAT < 92% Ondansetron HCl 4 mg 01/10/22 10:00 01/11/22 01:22 Ondansetron 4 Mg/2 Ml Inj IV 4 mg Q4H PRN Administration Nausea And Vomiting Polyethylene Glycol 17 gm 01/13/22 10:00 Polyethylene Glycol 3350 17 Gm Powder PO BID MATILDA Senna 8.6 mg 01/10/22 10:00 01/12/22 22:03 Sennosides 8.6 Mg Tab PO 8.6 mg BID MATILDA Administration Sodium Chloride 10 ml 01/10/22 10:00 01/12/22 22:16 Sodium Chloride 0.9% 10 Ml Flush Syringe IV 10 ml BID MATILDA Administration Sodium Chloride 10 ml 01/10/22 10:00 Sodium Chloride 0.9% 10 Ml Flush Syringe IV PRN PRN LINE FLUSH Sodium Chloride 1 applic 01/12/22 13:00 01/12/22 14:40 [place] Saline Nasal Gel 14.1 Gm NS 1 applic PRN PRN Administration Dry Nasal Passages
[2022-01-13] MEDS: POLYETHYLENE GLYCOL 3350 17 GM POWDER PO SCH ×2 (09:57→22:04)
[2022-01-13] MEDS: FAMOTIDINE 10 MG TAB PO SCH ×2 (09:57→22:04)
[2022-01-13] MEDS: SENNOSIDES 8.6 MG TAB PO SCH ×2 (09:58→22:05)
[2022-01-13] MEDS: cloNIDine 0.2 MG TAB PO SCH ×2 (11:48→22:05)
[2022-01-13 12:48] LABS: ANA Screen, IFA Negative (Negative)
--- NOTE | 2022-01-13 13:40 | Progress Note ---
Assessment and Plan - Patient Problems (1) Hypertensive urgency Current Visit: Yes Status: Acute (2) Status post insertion of endovascular thoracic aortic stent graft Current Visit: Yes Status: Acute (3) Acute on chronic HFrEF (heart failure with reduced ejection fraction) Current Visit: Yes Status: Acute (4) Acute kidney injury superimposed on chronic kidney disease Current Visit: Yes Status: Acute (5) Elevated troponin Current Visit: Yes Status: Acute (6) Acute hypoxemic respiratory failure Current Visit: Yes Status: Acute Subjective Date of service: 01/13/22 Principal diagnosis: renal failure Interval history: Patient seen and examined in hospital room today. He is feeling much better. He is up and walking around. He is in no acute distress Telemetry: Sinus rhythm 90's Intake & Output 01/12/22 01/13/22 01/13/22 23:59 07:59 15:59 Intake Total 1550 250 Output Total 1650 350 400 Balance -100 -100 -400 Objective Vital Signs Temp Pulse Resp BP BP Pulse Ox 01/13/22 11:48 91 H 199/108 01/13/22 08:00 98 01/13/22 07:59 97 01/13/22 07:45 98.3 F 91 H 20 199/108 96 01/13/22 05:45 20 01/13/22 04:00 98.9 F 93 H 20 191/108 96 01/13/22 00:00 89 98 01/12/22 22:03 89 195/117 01/12/22 22:00 98 01/12/22 20:00 95 H 98 01/12/22 19:46 97.5 F L 89 20 195/117 95 01/12/22 16:00 98.4 F 88 24 172/101 96 - Physical Examination General: Appears Well HEENT: Positive: Normocephaly, Mucus Membranes Moist Neck: Positive: trachea midline Cardiac: Positive: Reg Rate and Rhythm, S1/S2 Lungs: Positive: clear to auscultation Neuro: Positive: Grossly Intact Abdomen: Positive: Unremarkable, Soft, Active Bowel Sounds Skin: Negative: Rash Extremities: Present: upper extr. pulses (2+), +2 Edema (Bilateral lower extremities), warm - Labs and Meds Cardiac Enzymes 01/13/22 Range/Units Unknown AST 14 (5-40) units/L CBC 01/13/22 Range/Units 07:35 WBC 8.7 (4.5-11.0) K/mm3 RBC 3.80 (3.65-5.03) M/mm3 Hgb 9.5 L (11.8-15.2) gm/dl Hct 29.9 L (35.5-45.6) % Plt Count 299 (140-440) K/mm3 Lymph # (Auto) 1.1 L (1.2-5.4) K/mm3 [place] # (Auto) 0.8 (0.0-0.8) K/mm3 Eos # (Auto) 0.3 (0.0-0.4) K/mm3 Baso # (Auto) 0.2 H (0.0-0.1) K/mm3 Comprehensive Metabolic Panel 01/13/22 Range/Units Unknown Sodium 144 (137-145) mmol/L Potassium 3.5 L (3.6-5.0) mmol/L Chloride 104.0 (98-107) mmol/L Carbon Dioxide 19 L (22-30) mmol/L BUN 79 H (9-20) mg/dL Creatinine 5.8 H (0.8-1.3) mg/dL Glucose 93 (75-100) mg/dL Calcium 9.6 (8.4-10.2) mg/dL AST 14 (5-40) units/L ALT 36 (7-56) units/L Alkaline Phosphatase 96 (35-129) units/L Total Protein 7.0 (6.3-8.2) g/dL Albumin 4.7 (3.9-5) g/dL - Imaging and Cardiology EKG: image reviewed Echo: report reviewed (Echocardiogram 01/10/2022: LVEF 40%. LV SF moderately decreased. Severe LVH. RV is hypokinetic and dilated with flattened septum consistent with RV volume overload. Mild MR, left atrium severely dilated. Mild TR, right atrium dilated. RVSP is 33 mmHg.) - EKG Sinus rhythms and dysrhythmias: sinus rhythm Repolarization changes or abnormalities: nonspecific abnormality, ST segment, and/or T wave
--- NOTE | 2022-01-13 13:44 | Progress Note ---
Assessment and Plan This is a 46-year-old -[place] male, unknown to our practice, with significant past medical history of HFrEF, hypertension, TEVAR September 2020, and end-stage renal disease requiring dialysis after TEVAR. Now admitted for Acute on Chroninc HFrEF, RAHEL on CKD, and hypetensive urgency. Assessment Acute on chronic HFrEF (09/2020 EF 35%) RAHEL on CKD Hypertensive urgency - resolving NSTEMI type II; mildly elevated troponin; likely in the setting of renal failure. Patient chest pain-free History of thoracic endovascular aneurysm repair 09/2020 Acute hypoxemic respiratory failure - on [place] Cardiographics EKG 01/10/2022- sinus rhythm, rate 92, with probable LVH, and nonspecific T wave abnormalities. No acute ischemic changes Chest x-ray: 01/10/2022-no active cardiopulmonary disease Echocardiogram-01/10/22-LV systolic function is mild to moderately decreased. Flattened septum consistent with RV volume overload. LVEF is 40%. RV: Septum is flattened in diastole consistent with RV volume overload. Right ventricle is hypokinetic. BLE Venous duplex 01/10/22: Negative for BLE DVT Plan: BP elevated today, but pt is improving overall. Continue labetalol 300 mg PO 2 times daily, Imdur 30 mg PO daily, hydralazine 100 mg PO 3 times daily Add Clonidine 0.2 mg BID Transition to PO Lasix tomorrow. No BRENDA/ARB/ARNI in the setting of renal failure. ESRD- Creatinine improving slightly but remains elevated. Patient open to dialysis. Fluid and electrolyte management per nephrology. Avoid nephrotoxic agents. Patient seen in conjunction with Dr. Iglesias who agrees with the assessment and management of this patient. . - Patient Problems (1) Hypertensive urgency Current Visit: Yes Status: Acute (2) Status post insertion of endovascular thoracic aortic stent graft Current Visit: Yes Status: Acute (3) Acute on chronic HFrEF (heart failure with reduced ejection fraction) Current Visit: Yes Status: Acute (4) Acute kidney injury superimposed on chronic kidney disease Current Visit: Yes Status: Acute (5) Elevated troponin Current Visit: Yes Status: Acute (6) Acute hypoxemic respiratory failure Current Visit: Yes Status: Acute Subjective Date of service: 01/13/22 Principal diagnosis: renal failure Interval history: Patient seen and examined in hospital room today. He is feeling much better. He is up and walking around. He is in no acute distress Telemetry: Sinus rhythm 90's Intake & Output 01/12/22 01/13/22 01/13/22 23:59 07:59 15:59 Intake Total 1550 250 Output Total 1650 350 400 Balance -100 -100 -400 Objective Vital Signs Temp Pulse Resp BP BP Pulse Ox 01/13/22 11:48 91 H 199/108 01/13/22 08:00 98 01/13/22 07:59 97 01/13/22 07:45 98.3 F 91 H 20 199/108 96 01/13/22 05:45 20 01/13/22 04:00 98.9 F 93 H 20 191/108 96 01/13/22 00:00 89 98 01/12/22 22:03 89 195/117 01/12/22 22:00 98 01/12/22 20:00 95 H 98 01/12/22 19:46 97.5 F L 89 20 195/117 95 01/12/22 16:00 98.4 F 88 24 172/101 96 - Physical Examination General: Appears Well HEENT: Positive: Normocephaly, Mucus Membranes Moist Neck: Positive: trachea midline Cardiac: Positive: Regular Rate, S1/S2 Lungs: Positive: Normal Exam Neuro: Positive: Grossly Intact Abdomen: Positive: Unremarkable, Soft, Active Bowel Sounds Skin: Negative: Rash Extremities: Present: upper extr. pulses (2+), +2 Edema (Bilateral lower extremities), warm - Labs and Meds Cardiac Enzymes 01/13/22 Range/Units Unknown AST 14 (5-40) units/L CBC 01/13/22 Range/Units 07:35 WBC 8.7 (4.5-11.0) K/mm3 RBC 3.80 (3.65-5.03) M/mm3 Hgb 9.5 L (11.8-15.2) gm/dl Hct 29.9 L (35.5-45.6) % Plt Count 299 (140-440) K/mm3 Lymph # (Auto) 1.1 L (1.2-5.4) K/mm3 [place] # (Auto) 0.8 (0.0-0.8) K/mm3 Eos # (Auto) 0.3 (0.0-0.4) K/mm3 Baso # (Auto) 0.2 H (0.0-0.1) K/mm3 Comprehensive Metabolic Panel 01/13/22 Range/Units Unknown Sodium 144 (137-145) mmol/L Potassium 3.5 L (3.6-5.0) mmol/L Chloride 104.0 (98-107) mmol/L Carbon Dioxide 19 L (22-30) mmol/L BUN 79 H (9-20) mg/dL Creatinine 5.8 H (0.8-1.3) mg/dL Glucose 93 (75-100) mg/dL Calcium 9.6 (8.4-10.2) mg/dL AST 14 (5-40) units/L ALT 36 (7-56) units/L Alkaline Phosphatase 96 (35-129) units/L Total Protein 7.0 (6.3-8.2) g/dL Albumin 4.7 (3.9-5) g/dL - Imaging and Cardiology EKG: image reviewed Echo: report reviewed (Echocardiogram 01/10/2022: LVEF 40%. LV SF moderately decreased. Severe LVH. RV is hypokinetic and dilated with flattened septum consistent with RV volume overload. Mild MR, left atrium severely dilated. Mild TR, right atrium dilated. RVSP is 33 mmHg.) - EKG Sinus rhythms and dysrhythmias: sinus rhythm Repolarization changes or abnormalities: nonspecific abnormality, ST segment, and/or T wave - Allied health notes Allied health notes reviewed: nursing
--- NOTE | 2022-01-13 14:47 | Progress Note ---
Assessment and Plan Assessment and plan: This is a 46-year-old male with obesity, hypertension, HFrEF, CKD s/p TEVAR admitted with acute on chronic heart failure, acute kidney injury, hypertensive urgency #Hypertensive emergencyresolved #Acute on chronic systolic heart failureimproving #Status post thoracic aneurysm status post TEVAR (2020) Status post labetalol drip in MICU - Continue CHF exacerbation protocol: Telemetry, Strict I/O, monitor urine output every shift, daily weights, afterload reduction, low-sodium diet, and fluid restriction of approximately 1.5 mL/day. Transitioning to p.o. Lasix 40 mg twice daily tomorrow. - ProBNP on admission: 15,283 - Cardiology consulted; appreciate recs - TTE (01/11/2022) reveals TTE revealing EF 40%, mild to moderately decreased LV systolic function, normal LV size, moderate to severe concentric LVH, flattened septum consistent with RV volume overload, hypokinetic RV, severely dilated LA, dilated RA, and RVSP 35 mmHg. - Continue P.o. hydralazine 100 mg every 8 hours, Imdur 30 mg daily, labetalol 300 mg twice daily. Starting clonidine 0.2 mg twice daily #Acute hypoxic respiratory failureresolved - etiology: Volume overload in setting of acute on chronic systolic heart failure - baseline oxygen requirements: None - supplemental oxygen: 4 L - Continue protocol: continue pulse oximetry, wean oxygen as tolerated, ordered incentive spirometry and educated patient on how to use it and its importance. - continue to monitor #CKD stage Vimproving Creatinine 6.5-->5.9 -Nephrology consulted, appreciate recommendations Patient refusing initiation of hemodialysis. Continuing IV diuresis with Lasix 20 mg twice daily -Renal ultrasound increased cortical echogenicity suggest bilateral medical renal disease, no evidence of renal mass or hydronephrosis Renally dose meds and avoid nephrotoxic meds. Continue to monitor with daily BMP. Sat with patient and his partner and discussed at length the reasoning for suggesting hemodialysis for volume and blood pressure control. Patient endorses being okay with utilizing hemodialysis if it is a last resort. With later discussion it was found that the patient is more so apprehensive to the formation of an AV fistula. Time: +30 minutes #Hypokalemia Potassium 3.4 Repleted. Continue to monitor. #Morbid obesity #Weight loss counseling #Exercise counseling - BMI 35.4 - Counseled patient on the importance of weight loss, incorporating exercise, and dietary changes (lean meats, fresh fruits and vegetables, and water intake). Patient expresses understanding. - Time: + 15 min #Advanced care planning -Disease education conducted, care plan discussed, diagnoses discussed, prognosis discussed, and patient acknowledges understanding with care plan -Time: +30 min #Discharge planning - Patient is pending resolution of heart failure and improvement in blood pressure - Case management has been made aware. - Discharge is tentatively 48 hours - 72 hours Disposition Plan: Continue medical management Total Time Spent with Patient (Minutes): 45 minutes History Interval history: No acute events overnight. Hospitalist Physical - Constitutional Vitals: Temp Pulse Resp BP Pulse Ox 98.3 F 91 H 20 199/108 98 01/13/22 07:45 01/13/22 11:48 01/13/22 07:45 01/13/22 11:48 01/13/22 08:00 General appearance: Present: no acute distress, well-nourished, obese - EENT Eyes: Present: PERRL, EOM intact ENT: hearing intact, clear oral mucosa, dentition normal - Neck Neck: Present: supple, normal ROM - Respiratory Respiratory effort: normal Respiratory: bilateral: CTA - Cardiovascular Rhythm: regular Heart Sounds: Present: S1 & S2 - Extremities Extremities: no ischemia, pulses intact, pulses symmetrical, normal temperature, normal color, Full ROM Extremity abnormal: edema (1+ pitting edema bilateral lower extremities to knees) Peripheral Pulses: within normal limits - Abdominal General gastrointestinal: soft, non-tender, non-distended, normal bowel sounds - Integumentary Integumentary: Present: clear, warm, dry - Psychiatric Psychiatric: appropriate mood/affect, intact judgment & insight, memory intact, cooperative - Neurologic Neurologic: CNII-XII intact, moves all extremities - Allied Health Allied health notes reviewed: nursing HEART Score - HEART Score Troponin: Troponin T 0.047 ng/mL (0.00-0.029) H 01/10/22 18:29 Results - Labs CBC & Chem 7: 01/13/22 07:35 01/13/22 Unknown Labs: Laboratory Last Values WBC 8.7 K/mm3 (4.5-11.0) 01/13/22 07:35 RBC 3.80 M/mm3 (3.65-5.03) 01/13/22 07:35 Hgb 9.5 gm/dl (11.8-15.2) L 01/13/22 07:35 Hct 29.9 % (35.5-45.6) L 01/13/22 07:35 MCV 79 fl (84-94) L 01/13/22 07:35 MCH 25 pg (28-32) L 01/13/22 07:35 MCHC 32 % (32-34) 01/13/22 07:35 RDW 18.2 % (13.2-15.2) H 01/13/22 07:35 Plt Count 299 K/mm3 (140-440) 01/13/22 07:35 Lymph % (Auto) 12.6 % (13.4-35.0) L 01/13/22 07:35 [place] % (Auto) 9.1 % (0.0-7.3) H 01/13/22 07:35 Eos % (Auto) 3.7 % (0.0-4.3) 01/13/22 07:35 Baso % (Auto) 1.8 % (0.0-1.8) 01/13/22 07:35 Lymph # (Auto) 1.1 K/mm3 (1.2-5.4) L 01/13/22 07:35 [place] # (Auto) 0.8 K/mm3 (0.0-0.8) 01/13/22 07:35 Eos # (Auto) 0.3 K/mm3 (0.0-0.4) 01/13/22 07:35 Baso # (Auto) 0.2 K/mm3 (0.0-0.1) H 01/13/22 07:35 Seg Neutrophils % 72.8 % (40.0-70.0) H 01/13/22 07:35 Seg Neutrophils # 6.3 K/mm3 (1.8-7.7) 01/13/22 07:35 Sodium 144 mmol/L (137-145) 01/13/22 Unknown Potassium 3.5 mmol/L (3.6-5.0) L 01/13/22 Unknown Chloride 104.0 mmol/L (98-107) 01/13/22 Unknown Carbon Dioxide 19 mmol/L (22-30) L 01/13/22 Unknown Anion Gap 25 mmol/L 01/13/22 Unknown BUN 79 mg/dL (9-20) H 01/13/22 Unknown Creatinine 5.8 mg/dL (0.8-1.3) H 01/13/22 Unknown Estimated GFR 13 ml/min 01/13/22 Unknown BUN/Creatinine Ratio 14 % 01/13/22 Unknown Glucose 93 mg/dL (75-100) 01/13/22 Unknown Calcium 9.6 mg/dL (8.4-10.2) 01/13/22 Unknown Phosphorus 5.00 mg/dL (2.5-4.5) H 01/13/22 07:35 Iron 27 ug/dL (49-181) L 01/11/22 04:32 TIBC 309 mcg/dL (250-450) 01/11/22 04:32 Total Bilirubin 0.60 mg/dL (0.1-1.2) 01/13/22 Unknown AST 14 units/L (5-40) 01/13/22 Unknown ALT 36 units/L (7-56) 01/13/22 Unknown Alkaline Phosphatase 96 units/L (35-129) 01/13/22 Unknown Lactate Dehydrogenase 242 units/L (91-180) H 01/10/22 12:27 Total Creatine Kinase 169 units/L (55-170) 01/10/22 18:29 CK-MB (CK-2) 5.4 ng/mL (0.0-4.0) H 01/10/22 18:29 CK-MB (CK-2) Rel Index 3.1 (0-4) 01/10/22 18:29 Troponin T 0.047 ng/mL (0.00-0.029) H 01/10/22 18:29 NT-Pro-B Natriuret Pep 23467 pg/mL (0-450) H 01/10/22 02:09 Total Protein 7.0 g/dL (6.3-8.2) 01/13/22 Unknown Albumin 4.7 g/dL (3.9-5) 01/13/22 Unknown Albumin/Globulin Ratio 2.0 % 01/13/22 Unknown Triglycerides 65 mg/dL (2-149) 01/10/22 02:09 Cholesterol 121 mg/dL (50-199) 01/10/22 02:09 LDL Cholesterol Direct 78 mg/dL (50-130) 01/10/22 02:09 HDL Cholesterol 35 mg/dL (40-59) L 01/10/22 02:09 Cholesterol/HDL Ratio 3.45 % 01/10/22 02:09 Urine Color Straw (Yellow) 01/10/22 08:24 Urine Turbidity Clear (Clear) 01/10/22 08:24 Urine pH 6.0 (5.0-7.0) 01/10/22 08:24 Ur Specific [place] 1.006 (1.003-1.030) 01/10/22 08:24 Urine Protein 100 mg/dl mg/dL (Negative) 01/10/22 08:24 Urine Glucose (UA) Neg mg/dL (Negative) 01/10/22 08:24 Urine Ketones Neg mg/dL (Negative) 01/10/22 08:24 Urine Blood Sm (Negative) 01/10/22 08:24 Urine Nitrite Neg (Negative) 01/10/22 08:24 Urine Bilirubin Neg (Negative) 01/10/22 08:24 Urine Urobilinogen < 2.0 mg/dL (<2.0) 01/10/22 08:24 Ur Leukocyte Esterase Neg (Negative) 01/10/22 08:24 Urine WBC (Auto) Not Reportable 01/10/22 08:24 Urine RBC (Auto) 1.0 /HPF (0.0-6.0) 01/10/22 08:24 U Epithel Cells (Auto) < 1.0 /HPF (0-13.0) 01/10/22 08:24 Urine Eosinophils None seen (None Seen) 01/10/22 Unknown Urine Creatinine 193.5 mg/dL (0.1-20.0) H 01/10/22 Unknown Urine Creatinine 195.8 mg/dL (0.1-20.0) H 01/10/22 Unknown Protein/Creatinin Ratio 1.09 01/10/22 Unknown Urine Sodium 22 mmol/L 01/10/22 Unknown Urine Total Protein 210 mg/dL (5-11.8) H 01/10/22 Unknown DA Screen Negative (Negative) 01/10/22 12:27 Proteinase 3 (PR3) Ab <1.0 AI (<1.0) 01/10/22 12:27 Myeloperoxidase Ab <1.0 AI (<1.0) 01/10/22 12:27 Hep Bs Antigen Non-reactive (Negative) 01/10/22 12:27 Hepatitis C Antibody Non-reactive (NonReactive) 01/10/22 12:27 Schistocytes Smear None seen 01/10/22 12:27 Uriostegui/IV: Voiding Method Urinal Active Medications - Current Medications Current Medications: Generic Name Dose Route Start Last Admin Trade Name Freq PRN Reason Stop Dose Admin Acetaminophen 650 mg 01/10/22 10:00 Acetaminophen 325 Mg Tab PO Q6H PRN Pain MILD(1-3)/Fever >100.5/ORNELAS Albuterol 2.5 mg 01/10/22 11:00 Albuterol 2.5 Mg/3 Ml Nebu IH Q3HRT PRN Shortness Of Breath Clonidine HCl 0.2 mg 01/13/22 11:00 01/13/22 11:48 Clonidine 0.2 Mg Tab PO 0.2 mg Q12HR MATILDA Administration Famotidine 10 mg 01/11/22 10:00 01/13/22 09:57 Famotidine 10 Mg Tab PO 10 mg BID MATILDA Administration Furosemide 40 mg 01/11/22 10:00 01/13/22 05:29 Furosemide 40 Mg/4 Ml Inj IV 40 mg 0600,1800 MATILDA Administration Heparin Sodium (Porcine) 5,000 unit 01/10/22 14:00 01/13/22 05:29 Heparin 5,000 Unit/1 Ml Vial SUB-Q 5,000 unit Q8HR MATILDA Administration Hydralazine HCl 100 mg 01/12/22 10:30 01/13/22 05:29 Hydralazine 100 Mg Tab PO 100 mg Q8HR MATILDA Administration Hydralazine HCl 10 mg 01/13/22 05:51 01/13/22 07:41 Hydralazine 20 Mg/1 Ml Inj IV 10 mg Q6H PRN Administration Blood Pressure Isosorbide Mononitrate 30 mg 01/10/22 16:00 01/13/22 09:57 Isosorbide Mononitrate Er 30 Mg Tab PO 30 mg QDAY MATILDA Administration Labetalol HCl 300 mg 01/12/22 22:00 01/13/22 09:58 Labetalol 100 Mg Tab PO 300 mg BID MATILDA Administration Morphine Sulfate 2 mg 01/10/22 10:00 01/13/22 05:45 Morphine 2 Mg/1 Ml Inj IV 2 mg Q4H PRN Administration Pain, Moderate (4-6) Naloxone HCl 0.1 mg 01/10/22 10:00 Naloxone 0.4 Mg/1 Ml Inj IV Q2MIN PRN Res Rate </= 8 or 02 SAT < 92% Ondansetron HCl 4 mg 01/10/22 10:00 01/11/22 01:22 Ondansetron 4 Mg/2 Ml Inj IV 4 mg Q4H PRN Administration Nausea And Vomiting Polyethylene Glycol 17 gm 01/13/22 10:00 01/13/22 09:57 Polyethylene Glycol 3350 17 Gm Powder PO 17 gm BID MATILDA Administration Senna 8.6 mg 01/10/22 10:00 01/13/22 09:58 Sennosides 8.6 Mg Tab PO 8.6 mg BID MATILDA Administration Sodium Chloride 10 ml 01/10/22 10:00 01/13/22 09:58 Sodium Chloride 0.9% 10 Ml Flush Syringe IV 10 ml BID MATILDA Administration Sodium Chloride 10 ml 01/10/22 10:00 Sodium Chloride 0.9% 10 Ml Flush Syringe IV PRN PRN LINE FLUSH Sodium Chloride 1 applic 01/12/22 13:00 01/12/22 14:40 [place] Saline Nasal Gel 14.1 Gm NS 1 applic PRN PRN Administration Dry Nasal Passages Nutrition/Malnutrition Assess - Dietary Evaluation Nutrition/Malnutrition Findings: Nutrition Notes Start: 01/10/22 19:31 Freq: Status: Active Protocol: Document 01/11/22 10:21 KATIE (Rec: 01/11/22 11:03 KATIE [id number]) Nutrition Notes Need for Assessment generated from: MD Order,hospital administrative assistant,[facility] Initial or Follow up Assessment Current Diagnosis Acute Kidney Injury,CKD(stage I-IV),Sepsis,Hypertension, Respiratory Failure Other Pertinent Diagnosis NSTEMI II, HFrEF, BLE Swelling , Pneumonia/COVID-19 pui, OHS, s/p TEVAR. Current Diet Cardiac -Renal- Diet (since L 01/11). Labs/Tests 01/11: CO2 19, BUN 73, Crea 6. 5, Phos 6.4, Fe 27. Pertinent Medications 01/11: Nutritionally unremarkable. Height 5 ft 9 in Weight 108.7 kg [place] Body Weight (kg) 72.72 BMI 35.4 Intake Prior to Admission Poor Weight change and time frame 0.616 Kg body weight loss in 1 day reported. Pt states having, unintentionally, loss between 24 and 33 lb recently, but according to data from last visit on 08/2021, Pt's Bosy weight was 92 Kg and his BMI was 30.0 Kg/m2 Weight Status Obese Subjective/Other Information RD consult for dietary supplementation and risk for malnutrition assessments. No reports available on Pt's PO intake of meals at the time , will assess at F/U. Pt will be benefited from Renal Modification on his diet . Dietary Supplements are not recommended at this time, until %PO intake of meals is known, will assess at F/U. Pt states having, unintentionally, loss between 24 and 33 lb recently, but according to data from last visit on 08/2021, Pt's Body Weight was 92 Kg and his BMI was 30.0 Kg/m2. Pt has last HD on 01/2021, but states that does not want to be on HD, according to Consultation notes. Pt states that is not compliant with dietary recommendations, according to Progress notes. Pt is on Nasal Cannula, O2 saturation @ 90%, according to Physical Assessment History notes. Pt lives at home with and performs his ADL's, according to Case Management notes. Pt continues in critical condition, not a candidate for Nutrition Education at the time, will assess feasibility on F/U. Percent of energy/protein needs met: Prescribed Cardiac -Renal- Diet provides for energy/ protein needs (2,230 Kcal/85 g ) during LOS. Burn Absent Trauma Absent GI Symptoms None Food Allergy No Skin Integrity/Comment Assessment WNL. Minimum of two criteria No #1 Nutrition Diagnosis Altered nutrition-related laboratory values Comments: Pt has RAHEL on CKD IV, besides HFrEF Etiology Pt has RAHEL on CKD IV, besides HFrEF As Evidenced by Signs and Symptoms BLE Swelling, BUN 73, Crea 6.5 . Is patient on ventilator? No Is Patient Ambulatory and/or Out of Bed Yes REE-([place] [place]-ambulatory/OOB) [ 2557.594 [id number]] Kcal/Kg value to use for calculation 18 Approximate Energy Requirements Using 1957 kcal/Kg Calculation Used for Recommendations Kcal/kg Additional Notes Protein: 0.8-1.2 g/Kg AdjBW; 73-109 g/day. Fluids: 1 ml/Kcal, or as per MD. Nutrition Intervention Change Diet Order: Modify Cardiac Diet with Renal modification. Goal #1 Adjust the dietary intervention to better serve Pt's needs and clinical conditions during LOS. Goal #2 Maintain body weight within +/ -3% of admission body weight during LOS. Follow-Up By: 01/15/22 Additional Comments Nutrition education will be provided on F/U, if feasible. Continue monitoring food tolerance, %PO intake of meals , and BM.
[2022-01-14] MEDS: HEPARIN 5,000 UNIT/1 ML VIAL SUB-Q SCH ×3 (05:38→21:19)
[2022-01-14] MEDS: FUROSEMIDE 40 MG/4 ML INJ IV SCH (05:39)
[2022-01-14] MEDS: hydrALAZINE 100 MG TAB PO SCH ×3 (05:39→21:20)
[2022-01-14 06:05] LABS: Basophils # (Auto) 0.1 K/mm3 (0.0-0.1); Basophils % (Auto) 1.6 % (0.0-1.8); Eosinophils # (Auto) 0.4 K/mm3 (0.0-0.4); Eosinophils % (Auto) 5.1 % (0.0-4.3); Hematocrit 29.2 % (35.5-45.6); Hemoglobin 9.3 gm/dl (11.8-15.2); Lymphocytes % (Auto) 11.7 % (13.4-35.0); Mean Corpuscular HGB Conc 32 % (32-34); Mean Corpuscular Volume 79 fl (84-94); Monocytes # (Auto) 0.8 K/mm3 (0.0-0.8); Monocytes % (Auto) 9.6 % (0.0-7.3); Platelet Count 292 K/mm3 (140-440); Red Blood Count 3.69 M/mm3 (3.65-5.03); Red Cell Distribution Width 18.8 % (13.2-15.2)
[2022-01-14 06:28] LABS: Calcium 9.4 mg/dL (8.4-10.2)
[2022-01-14] MEDS: cloNIDine 0.2 MG TAB PO SCH ×3 (07:50→21:21)
--- NOTE | 2022-01-14 09:34 | Progress Note ---
Assessment and Plan Severe Acute Renal Failure on CKD Acute hypoxemic respiratory failure Obesity hypoventilation syndrome Accelerated hypertension Pneumonia Sepsis Plan Cr cont to improve slowly, responding to diuretics Serum creatinine was 3.8 in 08/2021. Patient with progressing CKD. Renal ultrasound- Medical Renal Disease. No hydronephrosis DA, ANCA, C3, C4, anti-GBM and SPEP are pending Hepatitis and Schistocytes- negative No IVF challenge due to volume overload cont lasix Renally dose medications Strict I&O's daily Obtain daily weights Monitor renal function closely. no indication to ECOLOGICAL TECHNICAL OFFICER. Subjective Date of service: 01/14/22 Principal diagnosis: renal failure Interval history: swelling is improving, making urine Objective - Vital Signs Vital signs: Vital Signs - 12hr 01/13/22 01/13/22 01/13/22 22:04 22:05 23:19 Temperature 97.8 F Pulse Rate 91 H 91 H 82 Respiratory 20 Rate Blood Pressure 170/87 170/87 150/80 O2 Sat by Pulse 85 Oximetry 01/14/22 01/14/22 01/14/22 04:00 04:18 04:20 Temperature 97.5 F L 97.5 F L Pulse Rate 91 H 89 Respiratory 19 21 Rate Blood Pressure 207/107 203/117 O2 Sat by Pulse 96 88 95 Oximetry 01/14/22 06:16 Temperature Pulse Rate 92 H Respiratory Rate Blood Pressure O2 Sat by Pulse Oximetry - Lab 01/14/22 05:25 01/14/22 10:40 Most recent lab results Calcium 9.4 mg/dL (8.4-10.2) 01/14/22 05:25 Phosphorus 5.00 mg/dL (2.5-4.5) H 01/13/22 07:35 Urine Creatinine 193.5 mg/dL (0.1-20.0) H 01/10/22 Unknown Urine Creatinine 195.8 mg/dL (0.1-20.0) H 01/10/22 Unknown Urine Sodium 22 mmol/L 01/10/22 Unknown Urine Total Protein 210 mg/dL (5-11.8) H 01/10/22 Unknown Medications & Allergies - Medications Allergies/Adverse Reactions: Allergies No Known Allergies Allergy (Verified 01/10/22 08:24) Home Medications: Home Medications Medication Instructions Recorded Confirmed Last Taken Type Labetalol HCl [Labetalol 300mg TAB] 300 mg PO TID #90 09/16/21 01/10/22 Unknown Rx NIFEdipine [Procardia Xl] 60 mg PO DAILY #30 09/16/21 01/10/22 Unknown Rx hydrALAZINE [Apresoline TAB] 50 mg PO TID #90 tab 09/16/21 01/10/22 Unknown Rx Active Medications: Generic Name Dose Route Start Last Admin Trade Name Freq PRN Reason Stop Dose Admin Acetaminophen 650 mg 01/10/22 10:00 Acetaminophen 325 Mg Tab PO Q6H PRN Pain MILD(1-3)/Fever >100.5/ORNELAS Albuterol 2.5 mg 01/10/22 11:00 Albuterol 2.5 Mg/3 Ml Nebu IH Q3HRT PRN Shortness Of Breath Clonidine HCl 0.2 mg 01/13/22 11:00 01/13/22 22:05 Clonidine 0.2 Mg Tab PO 0.2 mg Q12HR MATILDA Administration Famotidine 10 mg 01/11/22 10:00 01/13/22 22:04 Famotidine 10 Mg Tab PO 10 mg BID MATILDA Administration Furosemide 40 mg 01/14/22 18:00 Furosemide 40 Mg Tab PO 0600,1800 [facility] Heparin Sodium (Porcine) 5,000 unit 01/10/22 14:00 01/14/22 05:38 Heparin 5,000 Unit/1 Ml Vial SUB-Q 5,000 unit Q8HR MATILDA Administration Hydralazine HCl 100 mg 01/12/22 10:30 01/14/22 05:39 Hydralazine 100 Mg Tab PO 100 mg Q8HR MATILDA Administration Hydralazine HCl 10 mg 01/13/22 05:51 01/13/22 07:41 Hydralazine 20 Mg/1 Ml Inj IV 10 mg Q6H PRN Administration Blood Pressure Isosorbide Mononitrate 30 mg 01/10/22 16:00 01/13/22 09:57 Isosorbide Mononitrate Er 30 Mg Tab PO 30 mg QDAY MATILDA Administration Labetalol HCl 300 mg 01/12/22 22:00 01/13/22 22:04 Labetalol 100 Mg Tab PO 300 mg BID MATILDA Administration Morphine Sulfate 2 mg 01/10/22 10:00 01/13/22 05:45 Morphine 2 Mg/1 Ml Inj IV 2 mg Q4H PRN Administration Pain, Moderate (4-6) Naloxone HCl 0.1 mg 01/10/22 10:00 Naloxone 0.4 Mg/1 Ml Inj IV Q2MIN PRN Res Rate </= 8 or 02 SAT < 92% Ondansetron HCl 4 mg 01/10/22 10:00 01/11/22 01:22 Ondansetron 4 Mg/2 Ml Inj IV 4 mg Q4H PRN Administration Nausea And Vomiting Polyethylene Glycol 17 gm 01/13/22 10:00 01/13/22 22:04 Polyethylene Glycol 3350 17 Gm Powder PO 17 gm BID MATILDA Administration Senna 8.6 mg 01/10/22 10:00 01/13/22 22:05 Sennosides 8.6 Mg Tab PO 8.6 mg BID MATILDA Administration Sodium Chloride 10 ml 01/10/22 10:00 01/13/22 22:04 Sodium Chloride 0.9% 10 Ml Flush Syringe IV 10 ml BID MATILDA Administration Sodium Chloride 10 ml 01/10/22 10:00 Sodium Chloride 0.9% 10 Ml Flush Syringe IV PRN PRN LINE FLUSH Sodium Chloride 1 applic 01/12/22 13:00 01/12/22 14:40 Norris Saline Nasal Gel 14.1 Gm NS 1 applic PRN PRN Administration Dry Nasal Passages
[2022-01-14] MEDS: POLYETHYLENE GLYCOL 3350 17 GM POWDER PO SCH ×2 (09:43→21:32)
[2022-01-14] MEDS: SENNOSIDES 8.6 MG TAB PO SCH ×2 (09:43→21:21)
[2022-01-14] MEDS: FAMOTIDINE 10 MG TAB PO SCH ×2 (09:43→21:26)
[2022-01-14 11:30] LABS: Albumin 4.4 g/dL (3.9-5); Calcium 9.2 mg/dL (8.4-10.2)
--- NOTE | 2022-01-14 12:02 | Progress Note ---
Assessment and Plan This is a 46-year-old -[place] male, unknown to our practice, with significant past medical history of HFrEF, hypertension, TEVAR September 2020, and end-stage renal disease requiring dialysis after TEVAR. Now admitted for Acute on Chroninc HFrEF, RAHEL on CKD, and hypetensive urgency. Assessment Acute on chronic HFrEF (09/2020 EF 35%) RAHEL on CKD Hypertensive urgency - resolving NSTEMI type II; mildly elevated troponin; likely in the setting of renal failure. Patient chest pain-free History of thoracic endovascular aneurysm repair 09/2020 Acute hypoxemic respiratory failure - on HI Cardiographics EKG 01/10/2022- sinus rhythm, rate 92, with probable LVH, and nonspecific T wave abnormalities. No acute ischemic changes Chest x-ray: 01/10/2022-no active cardiopulmonary disease Echocardiogram-01/10/22-LV systolic function is mild to moderately decreased. Flattened septum consistent with RV volume overload. LVEF is 40%. RV: Septum is flattened in diastole consistent with RV volume overload. Right ventricle is hypokinetic. BLE Venous duplex 01/10/22: Negative for BLE DVT Plan: BP remains elevated. Increased labetalol to 300 TID, and clonidine to 0.2 mg TID. Continue Imdur 30 mg PO daily, hydralazine 100 mg PO TID. Patient volume status improving. Kidney function improving. No BRENDA/ARB/ARNI in the setting of renal failure. Fluid and electrolyte management per nephrology. Avoid nephrotoxic agents. From cardiac standpoint, discharge is pending improved volume status with PO lasix and BP control in AM. F/u Appt made for 02/01/22 @ [id number] in [place] location with Dr. Iglesias. Patient seen in conjunction with Dr. Iglesias who agrees with the assessment and management of this patient/ - Patient Problems (1) Hypertensive urgency Current Visit: Yes Status: Acute (2) Status post insertion of endovascular thoracic aortic stent graft Current Visit: Yes Status: Acute (3) Acute on chronic HFrEF (heart failure with reduced ejection fraction) Current Visit: Yes Status: Acute (4) Acute kidney injury superimposed on chronic kidney disease Current Visit: Yes Status: Acute (5) Elevated troponin Current Visit: Yes Status: Acute (6) Acute hypoxemic respiratory failure Current Visit: Yes Status: Acute Subjective Date of service: 01/14/22 Principal diagnosis: renal failure Interval history: Patient seen and examined in hospital room today. He continues to feel much better. He is up and walking around. He is in no acute distress. Did complain of some loose BM overnight. D/w primary team. Telemetry: Sinus rhythm Intake & Output 01/13/22 01/14/22 01/14/22 23:59 07:59 15:59 Intake Total 400 350 Output Total 500 Balance 400 -150 Weight 115.8 kg Objective Vital Signs Temp Pulse Resp BP Pulse Ox 01/14/22 07:50 179/102 01/14/22 07:29 24 174/102 01/14/22 07:26 86 182/96 91 01/14/22 06:16 92 H 01/14/22 04:20 97.5 F L 89 21 203/117 95 01/14/22 04:18 97.5 F L 91 H 19 207/107 88 01/14/22 04:00 96 01/13/22 23:19 97.8 F 82 20 150/80 85 01/13/22 22:05 91 H 170/87 01/13/22 22:04 91 H 170/87 01/13/22 18:59 98.0 F 93 H 18 170/87 88 01/13/22 17:49 84 194/116 98 01/13/22 16:49 96 - Physical Examination General: Appears Well HEENT: Positive: Normocephaly, Mucus Membranes Moist Neck: Positive: trachea midline Cardiac: Positive: Reg Rate and Rhythm, S1/S2 Lungs: Positive: Decreased Breath Sounds Neuro: Positive: Grossly Intact Abdomen: Positive: Unremarkable, Soft, Active Bowel Sounds Skin: Negative: Rash Extremities: Present: upper extr. pulses (2+), +1 Edema, warm - Labs and Meds Cardiac Enzymes 01/14/22 Range/Units 10:40 AST 11 (5-40) units/L CBC 01/14/22 Range/Units 05:25 WBC 8.2 (4.5-11.0) K/mm3 RBC 3.69 (3.65-5.03) M/mm3 Hgb 9.3 L (11.8-15.2) gm/dl Hct 29.2 L (35.5-45.6) % Plt Count 292 (140-440) K/mm3 Lymph # (Auto) 1.0 L (1.2-5.4) K/mm3 [place] # (Auto) 0.8 (0.0-0.8) K/mm3 Eos # (Auto) 0.4 (0.0-0.4) K/mm3 Baso # (Auto) 0.1 (0.0-0.1) K/mm3 Comprehensive Metabolic Panel 01/14/22 01/14/22 Range/Units 05:25 10:40 Sodium 141 141 (137-145) mmol/L Potassium 3.3 L 3.6 (3.6-5.0) mmol/L Chloride 101.3 100.9 (98-107) mmol/L Carbon Dioxide 20 L 22 (22-30) mmol/L BUN 72 H 75 H (9-20) mg/dL Creatinine 5.2 H 5.5 H (0.8-1.3) mg/dL Glucose 117 H 98 (75-100) mg/dL Calcium 9.4 9.2 (8.4-10.2) mg/dL AST 11 (5-40) units/L ALT 28 (7-56) units/L Alkaline Phosphatase 89 (35-129) units/L Total Protein 6.8 (6.3-8.2) g/dL Albumin 4.4 (3.9-5) g/dL - Imaging and Cardiology EKG: image reviewed Echo: report reviewed (Echocardiogram 01/10/2022: LVEF 40%. LV SF moderately decreased. Severe LVH. RV is hypokinetic and dilated with flattened septum consistent with RV volume overload. Mild MR, left atrium severely dilated. Mild TR, right atrium dilated. RVSP is 33 mmHg.) - Telemetry EKG Rhythm: Sinus Rhythm - EKG Sinus rhythms and dysrhythmias: sinus rhythm Repolarization changes or abnormalities: nonspecific abnormality, ST segment, and/or T wave - Allied health notes Allied health notes reviewed: nursing
--- NOTE | 2022-01-14 12:35 | Progress Note ---
Assessment and Plan Assessment and plan: This is a 46-year-old male with obesity, hypertension, HFrEF, CKD s/p TEVAR admitted with acute on chronic heart failure, acute kidney injury, hypertensive urgency #Hypertensive emergencyresolved #Malignant hypertension #Acute on chronic systolic heart failureresolved #Status post thoracic aneurysm status post TEVAR (2020) Status post labetalol drip in MICU - Continue CHF exacerbation protocol: Telemetry, Strict I/O, monitor urine output every shift, daily weights, afterload reduction, low-sodium diet, and fluid restriction of approximately 1.5 mL/day. Continue p.o. Lasix 40 mg twice daily. - ProBNP on admission: 15,283 - Cardiology consulted; appreciate recs - TTE (01/11/2022) reveals TTE revealing EF 40%, mild to moderately decreased LV systolic function, normal LV size, moderate to severe concentric LVH, flattened septum consistent with RV volume overload, hypokinetic RV, severely dilated LA, dilated RA, and RVSP 35 mmHg. - Continue P.o. hydralazine 100 mg every 8 hours, Imdur 30 mg daily, labetalol 300 mg twice daily. Starting clonidine 0.2 mg twice daily #Acute hypoxic respiratory failureresolved - etiology: Volume overload in setting of acute on chronic systolic heart failure - baseline oxygen requirements: None - supplemental oxygen: 4 L - Continue protocol: continue pulse oximetry, wean oxygen as tolerated, ordered incentive spirometry and educated patient on how to use it and its importance. - continue to monitor #CKD stage Vimproving Creatinine 6.5-->5.9-->5.5 -Nephrology consulted, appreciate recommendations Patient refusing initiation of hemodialysis. Continuing IV diuresis with Lasix 20 mg twice daily -Renal ultrasound increased cortical echogenicity suggest bilateral medical renal disease, no evidence of renal mass or hydronephrosis Renally dose meds and avoid nephrotoxic meds. Continue to monitor with daily BMP. #Hypokalemia Potassium 3.4 Repleted. Continue to monitor. #Morbid obesity #Weight loss counseling #Exercise counseling - BMI 35.4 - Counseled patient on the importance of weight loss, incorporating exercise, and dietary changes (lean meats, fresh fruits and vegetables, and water intake). Patient expresses understanding. - Time: + 15 min #Advanced care planning -Disease education conducted, care plan discussed, diagnoses discussed, prognosis discussed, and patient acknowledges understanding with care plan -Time: +30 min #Discharge planning - Patient is pending improvement in blood pressure - Case management has been made aware. - Discharge is tentatively 24-48 hours Disposition Plan: Continue medical management Total Time Spent with Patient (Minutes): 45 minutes History Interval history: No acute events overnight. Hospitalist Physical - Constitutional Vitals: Temp Pulse Resp BP Pulse Ox 97.5 F L 77 20 158/99 93 01/14/22 11:30 01/14/22 11:30 01/14/22 11:30 01/14/22 11:30 01/14/22 11:30 General appearance: Present: no acute distress, well-nourished, obese - EENT Eyes: Present: PERRL, EOM intact ENT: hearing intact, clear oral mucosa, dentition normal - Neck Neck: Present: supple, normal ROM - Respiratory Respiratory effort: normal Respiratory: bilateral: CTA - Cardiovascular Rhythm: regular Heart Sounds: Present: S1 & S2 - Extremities Extremities: no ischemia, pulses intact, pulses symmetrical, normal temperature, normal color, Full ROM Extremity abnormal: edema (1+ pitting edema bilateral lower extremities) Peripheral Pulses: within normal limits - Abdominal General gastrointestinal: soft, non-tender, non-distended, normal bowel sounds - Integumentary Integumentary: Present: clear, warm, dry - Psychiatric Psychiatric: appropriate mood/affect, intact judgment & insight, memory intact, cooperative - Neurologic Neurologic: CNII-XII intact, moves all extremities - Allied Health Allied health notes reviewed: nursing HEART Score - HEART Score Troponin: Troponin T 0.047 ng/mL (0.00-0.029) H 01/10/22 18:29 Results - Labs CBC & Chem 7: 01/14/22 05:25 01/14/22 10:40 Labs: Laboratory Last Values WBC 8.2 K/mm3 (4.5-11.0) 01/14/22 05:25 RBC 3.69 M/mm3 (3.65-5.03) 01/14/22 05:25 Hgb 9.3 gm/dl (11.8-15.2) L 01/14/22 05:25 Hct 29.2 % (35.5-45.6) L 01/14/22 05:25 MCV 79 fl (84-94) L 01/14/22 05:25 MCH 25 pg (28-32) L 01/14/22 05:25 MCHC 32 % (32-34) 01/14/22 05:25 RDW 18.8 % (13.2-15.2) H 01/14/22 05:25 Plt Count 292 K/mm3 (140-440) 01/14/22 05:25 Lymph % (Auto) 11.7 % (13.4-35.0) L 01/14/22 05:25 [place] % (Auto) 9.6 % (0.0-7.3) H 01/14/22 05:25 Eos % (Auto) 5.1 % (0.0-4.3) H 01/14/22 05:25 Baso % (Auto) 1.6 % (0.0-1.8) 01/14/22 05:25 Lymph # (Auto) 1.0 K/mm3 (1.2-5.4) L 01/14/22 05:25 Oliver # (Auto) 0.8 K/mm3 (0.0-0.8) 01/14/22 05:25 Eos # (Auto) 0.4 K/mm3 (0.0-0.4) 01/14/22 05:25 Baso # (Auto) 0.1 K/mm3 (0.0-0.1) 01/14/22 05:25 Seg Neutrophils % 72.0 % (40.0-70.0) H 01/14/22 05:25 Seg Neutrophils # 5.9 K/mm3 (1.8-7.7) 01/14/22 05:25 Sodium 141 mmol/L (137-145) 01/14/22 10:40 Potassium 3.6 mmol/L (3.6-5.0) 01/14/22 10:40 Chloride 100.9 mmol/L (98-107) 01/14/22 10:40 Carbon Dioxide 22 mmol/L (22-30) 01/14/22 10:40 Anion Gap 23 mmol/L 01/14/22 05:25 BUN 75 mg/dL (9-20) H 01/14/22 10:40 Creatinine 5.5 mg/dL (0.8-1.3) H 01/14/22 10:40 Estimated GFR 14 ml/min 01/14/22 10:40 BUN/Creatinine Ratio 14 % 01/14/22 10:40 Glucose 98 mg/dL (75-100) 01/14/22 10:40 Calcium 9.2 mg/dL (8.4-10.2) 01/14/22 10:40 Phosphorus 5.00 mg/dL (2.5-4.5) H 01/13/22 07:35 Iron 27 ug/dL (49-181) L 01/11/22 04:32 TIBC 309 mcg/dL (250-450) 01/11/22 04:32 Total Bilirubin 0.60 mg/dL (0.1-1.2) 01/14/22 10:40 AST 11 units/L (5-40) 01/14/22 10:40 ALT 28 units/L (7-56) 01/14/22 10:40 Alkaline Phosphatase 89 units/L (35-129) 01/14/22 10:40 Lactate Dehydrogenase 242 units/L (91-180) H 01/10/22 12:27 Total Creatine Kinase 169 units/L (55-170) 01/10/22 18:29 CK-MB (CK-2) 5.4 ng/mL (0.0-4.0) H 01/10/22 18: CK-MB (CK-2) Rel Index 3.1 (0-4) 01/10/22 18:29 Troponin T 0.047 ng/mL (0.00-0.029) H 01/10/22 18:29 NT-Pro-B Natriuret Pep 54748 pg/mL (0-450) H 01/10/22 02:09 Total Protein 6.8 g/dL (6.3-8.2) 01/14/22 10:40 Albumin 4.4 g/dL (3.9-5) 01/14/22 10:40 Albumin/Globulin Ratio 1.8 % 01/14/22 10:40 Triglycerides 65 mg/dL (2-149) 01/10/22 02:09 Cholesterol 121 mg/dL (50-199) 01/10/22 02:09 LDL Cholesterol Direct 78 mg/dL (50-130) 01/10/22 02:09 HDL Cholesterol 35 mg/dL (40-59) L 01/10/22 02:09 Cholesterol/HDL Ratio 3.45 % 01/10/22 02:09 Urine Color Straw (Yellow) 01/10/22 08:24 Urine Turbidity Clear (Clear) 01/10/22 08:24 Urine pH 6.0 (5.0-7.0) 01/10/22 08:24 Ur Specific [place] 1.006 (1.003-1.030) 01/10/22 08:24 Urine Protein 100 mg/dl mg/dL (Negative) 01/10/22 08:24 Urine Glucose (UA) Neg mg/dL (Negative) 01/10/22 08:24 Urine Ketones Neg mg/dL (Negative) 01/10/22 08:24 Urine Blood Sm (Negative) 01/10/22 08:24 Urine Nitrite Neg (Negative) 01/10/22 08:24 Urine Bilirubin Neg (Negative) 01/10/22 08:24 Urine Urobilinogen < 2.0 mg/dL (<2.0) 01/10/22 08:24 Ur Leukocyte Esterase Neg (Negative) 01/10/22 08:24 Urine WBC (Auto) Not Reportable 01/10/22 08:24 Urine RBC (Auto) 1.0 /HPF (0.0-6.0) 01/10/22 08:24 U Epithel Cells (Auto) < 1.0 /HPF (0-13.0) 01/10/22 08:24 Urine Eosinophils None seen (None Seen) 01/10/22 Unknown Urine Creatinine 193.5 mg/dL (0.1-20.0) H 01/10/22 Unknown Urine Creatinine 195.8 mg/dL (0.1-20.0) H 01/10/22 Unknown Protein/Creatinin Ratio 1.09 01/10/22 Unknown Urine Sodium 22 mmol/L 01/10/22 Unknown Urine Total Protein 210 mg/dL (5-11.8) H 01/10/22 Unknown DA Screen Negative (Negative) 01/10/22 12:27 Proteinase 3 (PR3) Ab <1.0 AI (<1.0) 01/10/22 12:27 Myeloperoxidase Ab <1.0 AI (<1.0) 01/10/22 12:27 Complement C3 131 mg/dL (82-185) 01/10/22 12:27 Complement C4 32 mg/dL (15-53) 01/10/22 12:27 Hep Bs Antigen Non-reactive (Negative) 01/10/22 12:27 Hepatitis C Antibody Non-reactive (NonReactive) 01/10/22 12:27 Schistocytes Smear None seen 01/10/22 12:27 Uriostegui/IV: Voiding Method Urinal Active Medications - Current Medications Current Medications: Generic Name Dose Route Start Last Admin Trade Name Freq PRN Reason Stop Dose Admin Acetaminophen 650 mg 01/10/22 10:00 Acetaminophen 325 Mg Tab PO Q6H PRN Pain MILD(1-3)/Fever >100.5/ORNELAS Albuterol 2.5 mg 01/10/22 11:00 Albuterol 2.5 Mg/3 Ml Nebu IH Q3HRT PRN Shortness Of Breath Clonidine HCl 0.2 mg 01/14/22 14:00 Clonidine 0.2 Mg Tab PO TID MATILDA Famotidine 10 mg 01/11/22 10:00 01/14/22 09:43 Famotidine 10 Mg Tab PO 10 mg BID MATILDA Administration Furosemide 40 mg 01/14/22 18:00 Furosemide 40 Mg Tab PO 0600,1800 [facility] Heparin Sodium (Porcine) 5,000 unit 01/10/22 14:00 01/14/22 05:38 Heparin 5,000 Unit/1 Ml Vial SUB-Q 5,000 unit Q8HR MATILDA Administration Hydralazine HCl 100 mg 01/12/22 10:30 01/14/22 05:39 Hydralazine 100 Mg Tab PO 100 mg Q8HR MATILDA Administration Hydralazine HCl 10 mg 01/13/22 05:51 01/13/22 07:41 Hydralazine 20 Mg/1 Ml Inj IV 10 mg Q6H PRN Administration Blood Pressure Isosorbide Mononitrate 30 mg 01/10/22 16:00 01/14/22 07:50 Isosorbide Mononitrate Er 30 Mg Tab PO 30 mg QDAY MATILDA Administration Labetalol HCl 300 mg 01/14/22 14:00 Labetalol 100 Mg Tab PO TID MATILDA Morphine Sulfate 2 mg 01/10/22 10:00 01/13/22 05:45 Morphine 2 Mg/1 Ml Inj IV 2 mg Q4H PRN Administration Pain, Moderate (4-6) Naloxone HCl 0.1 mg 01/10/22 10:00 Naloxone 0.4 Mg/1 Ml Inj IV Q2MIN PRN Res Rate </= 8 or 02 SAT < 92% Ondansetron HCl 4 mg 01/10/22 10:00 01/11/22 01:22 Ondansetron 4 Mg/2 Ml Inj IV 4 mg Q4H PRN Administration Nausea And Vomiting Polyethylene Glycol 17 gm 01/13/22 10:00 01/14/22 09:43 Polyethylene Glycol 3350 17 Gm Powder PO 17 gm BID MATILDA Administration Senna 8.6 mg 01/10/22 10:00 01/14/22 09:43 Sennosides 8.6 Mg Tab PO 8.6 mg BID MATILDA Administration Sodium Chloride 10 ml 01/10/22 10:00 01/13/22 22:04 Sodium Chloride 0.9% 10 Ml Flush Syringe IV 10 ml BID MATILDA Administration Sodium Chloride 10 ml 01/10/22 10:00 Sodium Chloride 0.9% 10 Ml Flush Syringe IV PRN PRN LINE FLUSH Sodium Chloride 1 applic 01/12/22 13:00 01/12/22 14:40 [place] Saline Nasal Gel 14.1 Gm NS 1 applic PRN PRN Administration Dry Nasal Passages Nutrition/Malnutrition Assess - Dietary Evaluation Nutrition/Malnutrition Findings: Nutrition Notes Start: 01/10/22 19:31 Freq: Status: Active Protocol: Document 01/11/22 10:21 KATIE (Rec: 01/11/22 11:03 KATIE [email or web address]) Nutrition Notes Need for Assessment generated from: MD Order,assistant counsel,MST Initial or Follow up Assessment Current Diagnosis Acute Kidney Injury,CKD(stage I-IV),Sepsis,Hypertension, Respiratory Failure Other Pertinent Diagnosis NSTEMI II, HFrEF, BLE Swelling , Pneumonia/COVID-19 pui, OHS, s/p TEVAR. Current Diet Cardiac -Renal- Diet (since L 01/11). Labs/Tests 01/11: CO2 19, BUN 73, Crea 6. 5, Phos 6.4, Fe 27. Pertinent Medications 01/11: Nutritionally unremarkable. Height 5 ft 9 in Weight 108.7 kg [place] Body Weight (kg) 72.72 BMI 35.4 Intake Prior to Admission Poor Weight change and time frame 0.616 Kg body weight loss in 1 day reported. Pt states having, unintentionally, loss between 24 and 33 lb recently, but according to data from last visit on 08/2021, Pt's Bosy weight was 92 Kg and his BMI was 30.0 Kg/m2 Weight Status Obese Subjective/Other Information RD consult for dietary supplementation and risk for malnutrition assessments. No reports available on Pt's PO intake of meals at the time , will assess at F/U. Pt will be benefited from Renal Modification on his diet . Dietary Supplements are not recommended at this time, until %PO intake of meals is known, will assess at F/U. Pt states having, unintentionally, loss between 24 and 33 lb recently, but according to data from last visit on 08/2021, Pt's Body Weight was 92 Kg and his BMI was 30.0 Kg/m2. Pt has last HD on 01/2021, but states that does not want to be on HD, according to Consultation notes. Pt states that is not compliant with dietary recommendations, according to Progress notes. Pt is on Nasal Cannula, O2 saturation @ 90%, according to Physical Assessment History notes. Pt lives at home with and performs his ADL's, according to Case Management notes. Pt continues in critical condition, not a candidate for Nutrition Education at the time, will assess feasibility on F/U. Percent of energy/protein needs met: Prescribed Cardiac -Renal- Diet provides for energy/ protein needs (2,230 Kcal/85 g ) during LOS. Burn Absent Trauma Absent GI Symptoms None Food Allergy No Skin Integrity/Comment Assessment WNL. Minimum of two criteria No #1 Nutrition Diagnosis Altered nutrition-related laboratory values Comments: Pt has RAHEL on CKD IV, besides HFrEF Etiology Pt has RAHEL on CKD IV, besides HFrEF As Evidenced by Signs and Symptoms BLE Swelling, BUN 73, Crea 6.5 . Is patient on ventilator? No Is Patient Ambulatory and/or Out of Bed Yes REE-([place]-St. Jeor-ambulatory/OOB) [ 2557.594 [id number]] Kcal/Kg value to use for calculation 18 Approximate Energy Requirements Using 1957 kcal/Kg Calculation Used for Recommendations Kcal/kg Additional Notes Protein: 0.8-1.2 g/Kg AdjBW; 73-109 g/day. Fluids: 1 ml/Kcal, or as per MD. Nutrition Intervention Change Diet Order: Modify Cardiac Diet with Renal modification. Goal #1 Adjust the dietary intervention to better serve Pt's needs and clinical conditions during LOS. Goal #2 Maintain body weight within +/ -3% of admission body weight during LOS. Follow-Up By: 01/15/22 Additional Comments Nutrition education will be provided on F/U, if feasible. Continue monitoring food tolerance, %PO intake of meals , and BM.
[2022-01-14] MEDS: FUROSEMIDE 40 MG TAB PO SCH (18:01)
[2022-01-14] MEDS: ACETAMINOPHEN 325 MG TAB PO PRN (23:35)
[2022-01-15] MEDS: hydrALAZINE 20 MG/1 ML INJ IV PRN ×2 (04:45→11:42)
[2022-01-15] MEDS: HEPARIN 5,000 UNIT/1 ML VIAL SUB-Q SCH ×2 (05:58→16:01)
[2022-01-15] MEDS: FUROSEMIDE 40 MG TAB PO SCH (05:58)
[2022-01-15] MEDS: hydrALAZINE 100 MG TAB PO SCH ×2 (05:58→15:54)
--- NOTE | 2022-01-15 08:17 | Discharge Summary ---
Providers - Providers Date of Admission: 01/10/22 09:37 Date of discharge: 01/15/22 Attending physician: ÁLVARO CORONADO MD 01/10/22 09:17 Consult to Physician [CONS] Stat Comment: Consulting Provider: IAN CLAROS Physician Instructions: Reason For Exam: a/c kd- 01/10/22 09:35 Consult to Physician [CONS] Routine Comment: Consulting Provider: FORTUNATO LAMBERT Physician Instructions: Reason For Exam: a/c hf; htn emergency; sp desc aorta graft 01/10/22 09:37 Consult to Dietitian/Nutrition [CONS] Routine Physician Instructions: Reason For Exam: Reason for Consult: Diet education Primary care physician: MANA[employer] Hospitalization Reason for admission: Hypertensive emergency, acute on chronic systolic heart failure, RAHEL on CKD Condition: Stable Pertinent studies: Reviewed. Procedures: None. Hospital course: Patient is a 46-year-old male with Obesity, HTN, CHF, CKD, PAD S/P Aortic Dissection presents to ED for evaluation. Reports that he had a history of post aortic tear about 2 months ago and had a stent placed at [place] presents to the ER today with complaint of 1 week history of progressive worsening shortness of breath associated with bilateral lower extremity swelling. He states that on reviewing his medication he stopped the nifedipine which she felt was the culprit of his swelling. He reported putting a call to his physician but did not hear back from them. He otherwise reports compliance with all his other medication also states that he was not placed on a water pill. On further evaluation in the ER he is noted to have a systolic blood pressure in the 240s with diastolic in the 120s and is being placed on labetalol drip and we are requested to admit the patient for further evaluation. Patient was admitted to the MICU for management of hypertensive emergency complicated by acute on chronic systolic heart failure and acute hypoxic respiratory failure. Cardiology was consulted for further management, and the patient was able to be successfully weaned off of labetalol drip, and he was transitioned to p.o. antihypertensives. TTE revealed an EF of 40% with mild to moderately decreased LV systolic function, normal LV function, moderate to severe concentric LVH, flattened septum consistent with RV volume overload, hypokinetic RV, severely dilated LA, dilated RA, and RVSP 35 mmHg. Nephrology was consulted due to his worsening renal function (CKD stage V); however, the patient preferred not to reinitiate hemodialysis. Patient was successfully weaned to room air, and his antihypertensives were uptitrated. The patient will follow with cardiology upon discharge with Dr. Iglesias on 02/01/2022 at 1:45 PM in the [place] location. Patient is medically clear for discharge. Disposition: 01 HOME / SELF CARE / HOMELESS Final Discharge Diagnosis (Prints w/discharge instructions): Acute on chronic systolic heart failure, RAHEL on CKD stage 5, hypertensive emergency, NSTEMI type II, acute hypoxic respiratory failure, hypokalemia, morbid obesity Time spent for discharge: 45 min Core Measure Documentation - Palliative Care Palliative Care/ Comfort Measures: Not Applicable - Core Measures Any of the following diagnoses?: heart failure - Heart Failure Discharge Requirements BRENDA/ARB for LVSD if EF <40%: Not Applicable Reason for no BRENDA/ARB: Renal impairment Beta anca at discharge: Yes Exam - Constitutional Vitals: Temp Pulse Resp BP Pulse Ox 97.6 F 83 19 186/115 99 01/15/22 03:47 01/15/22 04:45 01/15/22 03:47 01/15/22 04:45 01/15/22 03:47 General appearance: Present: no acute distress, well-nourished, obese - EENT Eyes: Present: PERRL, EOM intact ENT: hearing intact, clear oral mucosa, dentition normal - Neck Neck: Present: supple, normal ROM - Respiratory Respiratory effort: normal Respiratory: bilateral: CTA - Cardiovascular Rhythm: regular Heart Sounds: Present: S1 & S2 - Extremities Extremities: no ischemia, pulses intact, pulses symmetrical, normal temperature, normal color, Full ROM Extremity abnormal: edema (Trace edema of bilateral lower extremities) Peripheral Pulses: within normal limits - Abdominal General gastrointestinal: Present: soft, non-tender, non-distended, normal bowel sounds Male genitourinary: Present: deferred - Rectal Rectal Exam: deferred - Integumentary Integumentary: Present: clear, warm, dry - Musculoskeletal Musculoskeletal: strength equal bilaterally - Psychiatric Psychiatric: appropriate mood/affect, intact judgment & insight, memory intact, cooperative - Neurologic Neurologic: CNII-XII intact, moves all extremities - Allied Health Allied health notes reviewed: nursing Plan Activity: advance as tolerated Diet: low salt, renal Additional Instructions: Patient is a 46-year-old male with Obesity, HTN, CHF, CKD, PAD S/P Aortic Dissection presents to ED for evaluation. Reports that he had a history of post aortic tear about 2 months ago and had a stent placed at [place] presents to the ER today with complaint of 1 week history of progressive worsening shortness of breath associated with bilateral lower extremity swelling. He states that on reviewing his medication he stopped the nifedipine which she felt was the culprit of his swelling. He reported putting a call to his physician but did not hear back from them. He otherwise reports compliance with all his other medication also states that he was not placed on a water pill. On further evaluation in the ER he is noted to have a systolic blood pressure in the 240s with diastolic in the 120s and is being placed on labetalol drip and we are requested to admit the patient for further evaluation. Patient was admitted to the MICU for management of hypertensive emergency complicated by acute on chronic systolic heart failure and acute hypoxic respiratory f ailure. Cardiology was consulted for further management, and the patient was able to be successfully weaned off of labetalol drip, and he was transitioned to p.o. antihypertensives. TTE revealed an EF of 40% with mild to moderately decreased LV systolic function, normal LV function, moderate to severe concentric LVH, flattened septum consistent with RV volume overload, hypokinetic RV, severely dilated LA, dilated RA, and RVSP 35 mmHg. Nephrology was consulted due to his worsening renal function (CKD stage V); however, the patient preferred not to reinitiate hemodialysis. Patient was successfully weaned to room air, and his antihypertensives were uptitrated. The patient will follow with cardiology upon discharge with Dr. Iglesias on 02/01/2022 at 1:45 PM in the [place] location. Patient is medically clear for discharge. Care Plan Goals: Patient is medically cleared for discharge. Assessment: Patient is a 46-year-old male with Obesity, HTN, CHF, CKD, PAD S/P Aortic Dissection presents to ED for evaluation. Reports that he had a history of post aortic tear about 2 months ago and had a stent placed at [place] presents to the ER today with complaint of 1 week history of progressive worsening shortness of breath associated with bilateral lower extremity swelling. He states that on reviewing his medication he stopped the nifedipine which she felt was the culprit of his swelling. He reported putting a call to his physician but did not hear back from them. He otherwise reports compliance with all his other medication also states that he was not placed on a water pill. On further evaluation in the ER he is noted to have a systolic blood pressure in the 240s with diastolic in the 120s and is being placed on labetalol drip and we are requested to admit the patient for further evaluation. Patient was admitted to the MICU for management of hypertensive emergency complicated by acute on chronic systolic heart failure and acute hypoxic respiratory failure. Cardiology was consulted for further management, and the patient was able to be successfully weaned off of labetalol drip, and he was transitioned to p.o. antihypertensives. TTE revealed an EF of 40% with mild to moderately decreased LV systolic function, normal LV function, moderate to severe concentric LVH, flattened septum consistent with RV volume overload, hypokinetic RV, severely dilated LA, dilated RA, and RVSP 35 mmHg. Nephrology was consulted due to his worsening renal function (CKD stage V); however, the patient preferred not to reinitiate hemodialysis. Patient was successfully weaned to room air, and his antihypertensives were uptitrated. The patient will follow with cardiology upon discharge with Dr. Iglesias on 02/01/2022 at 1:45 PM in the [place] location. Patient is medically clear for discharge. Follow up with: PRIMARY CAREMD [Primary Care Provider] - 3-5 Days ABNER WEISS MD [Staff Physician] - 7 Days JOCELINE IGLESIAS MD [Staff Physician] - 02/01/22 1:45 pm Forms: Work/School Release Form Prescriptions: hydrALAZINE [Apresoline TAB] 100 mg PO Q8HR #90 tab cloNIDine [Catapres] 0.2 mg PO TID #90 tablet ISOSORBIDE MONOnitrate [Imdur ER] 30 mg PO QDAY #30 tablet labetaloL [Labetalol 100mg TAB] 300 mg PO TID #90 tablet Furosemide [Lasix TAB] 40 mg PO 0600,1800 #60 tablet polyethylene glycoL 3350 [Miralax 3350] 17 gm PO BID #30 powd.pack
[2022-01-15] MEDS: cloNIDine 0.2 MG TAB PO SCH ×2 (08:59→15:55)
[2022-01-15] MEDS: SENNOSIDES 8.6 MG TAB PO SCH (08:59)
[2022-01-15] MEDS: FAMOTIDINE 10 MG TAB PO SCH (09:00)
[2022-01-15] MEDS: POLYETHYLENE GLYCOL 3350 17 GM POWDER PO SCH (09:00)
[2022-01-15 09:37] LABS: Basophils # (Auto) 0.1 K/mm3 (0.0-0.1); Basophils % (Auto) 1.4 % (0.0-1.8); Eosinophils # (Auto) 0.4 K/mm3 (0.0-0.4); Eosinophils % (Auto) 5.7 % (0.0-4.3); Hematocrit 29.9 % (35.5-45.6); Hemoglobin 9.4 gm/dl (11.8-15.2); Lymphocytes # (Auto) 0.8 K/mm3 (1.2-5.4); Lymphocytes % (Auto) 11.3 % (13.4-35.0); Mean Corpuscular HGB Conc 31 % (32-34); Mean Corpuscular Volume 79 fl (84-94); Monocytes # (Auto) 0.6 K/mm3 (0.0-0.8); Monocytes % (Auto) 8.6 % (0.0-7.3); Platelet Count 307 K/mm3 (140-440); Red Blood Count 3.77 M/mm3 (3.65-5.03); Red Cell Distribution Width 18.7 % (13.2-15.2)
[2022-01-15 09:58] LABS: Calcium 9.7 mg/dL (8.4-10.2)
[2022-01-15] MEDS: ACETAMINOPHEN 325 MG TAB PO PRN (11:42)
[2022-01-15 12:36] VITALS: BP 174/104
[2022-01-15 14:08] LABS: Albumin 4.3 g/dL (3.9-5); Calcium 9.4 mg/dL (8.4-10.2)
--- NOTE | 2022-01-15 15:14 | Progress Note ---
Assessment and Plan Assessment and Plan Severe Acute Renal Failure on CKD Acute hypoxemic respiratory failure Obesity hypoventilation syndrome Accelerated hypertension Pneumonia Sepsis Plan Cr high but stable, mamking urine. Serum creatinine was 3.8 in 08/2021. Patient with progressing CKD. Renal ultrasound- Medical Renal Disease. No hydronephrosis DA, ANCA, C3, C4, anti-GBM and SPEP are pending Hepatitis and Schistocytes- negative No IVF challenge due to volume overload cont lasix Renally dose medications Strict I&O's daily Obtain daily weights Monitor renal function closely. 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 Subjective Date of service: 01/15/22 Principal diagnosis: renal failure Interval history: Making urine. Objective - Exam Narrative Exam: General appearance: Present: no acute distress, well-nourished, obese - EENT Eyes: Present: PERRL, EOM intact ENT: hearing intact, clear oral mucosa, dentition normal - Neck Neck: Present: supple, normal ROM - Respiratory Respiratory effort: normal Respiratory: bilateral: CTA - Cardiovascular Rhythm: regular Heart Sounds: Present: S1 & S2 - Extremities Extremities: no ischemia, pulses intact, pulses symmetrical, normal temperature, normal color, Full ROM Extremity abnormal: edema (1+ pitting edema bilateral lower extremities) Peripheral Pulses: within normal limits - Abdominal General gastrointestinal: soft, non-tender, non-distended, normal bowel sounds - Integumentary Integumentary: Present: clear, warm, dry - Psychiatric Psychiatric: appropriate mood/affect, intact judgment & insight, memory intact, cooperative - Neurologic Neurologic: CNII-XII intact, moves all extremities - Allied Health Allied health notes reviewed: nursing - Vital Signs Vital signs: Vital Signs - 12hr 01/15/22 01/15/22 01/15/22 03:47 04:00 04:45 Temperature 97.6 F Pulse Rate 83 81 83 Pulse Rate [ Right Dorsalis Pedis] Respiratory 19 Rate Blood Pressure 186/115 186/115 O2 Sat by Pulse 99 Oximetry 01/15/22 01/15/22 01/15/22 08:16 11:36 12:00 Temperature 98.8 F Pulse Rate 85 74 Pulse Rate [ Right Dorsalis Pedis] Respiratory 18 Rate Blood Pressure 183/110 174/104 O2 Sat by Pulse 95 Oximetry 01/15/22 15:06 Temperature Pulse Rate Pulse Rate [ 74 Right Dorsalis Pedis] Respiratory Rate Blood Pressure O2 Sat by Pulse 95 Oximetry - Lab 01/15/22 09:17 01/15/22 13:06 Most recent lab results Calcium 9.4 mg/dL (8.4-10.2) 01/15/22 13:06 Phosphorus 4.60 mg/dL (2.5-4.5) H 01/15/22 09:17 Urine Creatinine 193.5 mg/dL (0.1-20.0) H 01/10/22 Unknown Urine Creatinine 195.8 mg/dL (0.1-20.0) H 01/10/22 Unknown Urine Sodium 22 mmol/L 01/10/22 Unknown Urine Total Protein 210 mg/dL (5-11.8) H 01/10/22 Unknown Medications & Allergies - Medications Allergies/Adverse Reactions: Allergies No Known Allergies Allergy (Verified 01/10/22 08:24) Home Medications: Home Medications Medication Instructions Recorded Confirmed Last Taken Type Furosemide [Lasix TAB] 40 mg PO 0600,1800 #60 tablet 01/15/22 Unknown Rx ISOSORBIDE MONOnitrate [Imdur ER] 30 mg PO QDAY #30 tablet 01/15/22 Unknown Rx Labetalol HCl [Labetalol 300mg TAB] 300 mg PO TID #90 tab 01/15/22 Unknown Rx cloNIDine [Catapres] 0.2 mg PO TID #90 tablet 01/15/22 Unknown Rx hydrALAZINE [Apresoline TAB] 100 mg PO Q8HR #90 tab 01/15/22 Unknown Rx polyethylene glycoL 3350 [Miralax 17 gm PO BID #30 powd.pack 01/15/22 Unknown Rx 3350] Active Medications: Generic Name Dose Route Start Last Admin Trade Name Freq PRN Reason Stop Dose Admin Acetaminophen 650 mg 01/10/22 10:00 01/15/22 11:42 Acetaminophen 325 Mg Tab PO 650 mg Q6H PRN Administration Pain MILD(1-3)/Fever >100.5/ORNELAS Albuterol 2.5 mg 01/10/22 11:00 Albuterol 2.5 Mg/3 Ml Nebu IH Q3HRT PRN Shortness Of Breath Clonidine HCl 0.2 mg 01/14/22 14:00 01/15/22 08:59 Clonidine 0.2 Mg Tab PO 0.2 mg TID MATILDA Administration Famotidine 10 mg 01/11/22 10:00 01/15/22 09:00 Famotidine 10 Mg Tab PO 10 mg BID MATILDA Administration Furosemide 40 mg 01/14/22 18:00 01/15/22 05:58 Furosemide 40 Mg Tab PO 40 mg 0600,1800 MATILDA Administration Heparin Sodium (Porcine) 5,000 unit 01/10/22 14:00 01/15/22 05:58 Heparin 5,000 Unit/1 Ml Vial SUB-Q 5,000 unit Q8HR MATILDA Administration Hydralazine HCl 100 mg 01/12/22 10:30 01/15/22 05:58 Hydralazine 100 Mg Tab PO 100 mg Q8HR MATILDA Administration Hydralazine HCl 10 mg 01/13/22 05:51 01/15/22 11:42 Hydralazine 20 Mg/1 Ml Inj IV 10 mg Q6H PRN Administration Blood Pressure Isosorbide Mononitrate 30 mg 01/10/22 16:00 01/15/22 08:59 Isosorbide Mononitrate Er 30 Mg Tab PO 30 mg QDAY MATILDA Administration Labetalol HCl 300 mg 01/14/22 14:00 01/15/22 08:59 Labetalol 100 Mg Tab PO 300 mg TID MATILDA Administration Morphine Sulfate 2 mg 01/10/22 10:00 01/13/22 05:45 Morphine 2 Mg/1 Ml Inj IV 2 mg Q4H PRN Administration Pain, Moderate (4-6) Naloxone HCl 0.1 mg 01/10/22 10:00 Naloxone 0.4 Mg/1 Ml Inj IV Q2MIN PRN Res Rate </= 8 or 02 SAT < 92% Ondansetron HCl 4 mg 01/10/22 10:00 01/11/22 01:22 Ondansetron 4 Mg/2 Ml Inj IV 4 mg Q4H PRN Administration Nausea And Vomiting Polyethylene Glycol 17 gm 01/13/22 10:00 01/15/22 09:00 Polyethylene Glycol 3350 17 Gm Powder PO Not Given BID MATILDA Senna 8.6 mg 01/10/22 10:00 01/15/22 08:59 Sennosides 8.6 Mg Tab PO Not Given BID MATILDA Sodium Chloride 10 ml 01/10/22 10:00 01/15/22 09:00 Sodium Chloride 0.9% 10 Ml Flush Syringe IV 10 ml BID MATILDA Administration Sodium Chloride 10 ml 01/10/22 10:00 Sodium Chloride 0.9% 10 Ml Flush Syringe IV PRN PRN LINE FLUSH Sodium Chloride 1 applic 01/12/22 13:00 01/12/22 14:40 [place] Saline Nasal Gel 14.1 Gm NS 1 applic PRN PRN Administration Dry Nasal Passages
--- NOTE | 2022-01-15 18:20 | Progress Note ---
Assessment and Plan Assessment Acute Respiratory Failure (resolved) Acute on Chronic HFmrEF (EF ~40%) RAHEL on CKD (pt refuses HD) Hypertensive Emergency Type 2 ME H/o Thoracic Endovascular Aneurysm Repair (09/2020) ?Sleep Apnea Plan: Continue PO Lasix 40mg BID with KCl repletion. BP remains markedly elevated on Labetalol 300mg TID, Clonidine 0.2mg TID, Hydralazine 100mg TID, and Imdur 30mg daily. May titrate up Imdur as needed. No ACEI/ARB due to renal fxn. Plan for ischemic evaluation as an outpatient. Follow-up with Dr. Iglesias on 02/01/2022 @ 1:45pm in our [place] office ([phone]). Recommend also outpatient sleep study. Patient seen in conjunction with Dr. Aguirre, who agrees with the assessment and plan of care. - Patient Problems (1) Acute on chronic HFrEF (heart failure with reduced ejection fraction) Status: Acute (2) Acute kidney injury superimposed on chronic kidney disease Status: Acute Subjective Date of service: 01/15/22 Principal diagnosis: HFrEF Interval history: C/o nasal airway obstruction, i.e. "pulling out a lot of mucus" but states his breathing is otherwise ok. Still has some lower extremity edema. Tele reviewed - SR 70s with intermittent sinus pauses (up to 3.5sec) note during overnight hours only. Objective Vital Signs Temp Pulse Pulse Resp Resp BP Pulse Ox 01/15/22 15:06 74 95 01/15/22 12:00 74 01/15/22 11:36 174/104 01/15/22 08:16 98.8 F 85 18 183/110 95 01/15/22 04:45 83 186/115 01/15/22 04:00 81 01/15/22 03:47 97.6 F 83 19 186/115 99 01/15/22 00:35 17 01/15/22 00:02 17 96 01/15/22 00:00 80 01/14/22 23:59 17 01/14/22 23:35 17 01/14/22 23:26 97.2 F L 83 21 166/98 94 01/14/22 21:21 88 151/80 01/14/22 21:20 88 151/80 01/14/22 20:00 84 01/14/22 19:13 98.0 F 88 18 151/80 93 - Physical Examination General: No Apparent Distress HEENT: Positive: EOMI, Normocephaly Neck: Positive: neck supple, trachea midline. Negative: JVD/HJR Cardiac: Positive: Reg Rate and Rhythm, S1/S2 Lungs: Positive: Decreased Breath Sounds (bases) Neuro: Positive: Grossly Intact Abdomen: Positive: Soft. Negative: Tender Skin: Negative: Rash Musculoskeletal: No Pain Extremities: Present: lower extr. pulses, +1 Edema, warm - Labs and Meds Cardiac Enzymes 01/15/22 Range/Units 13:06 AST 10 (5-40) units/L CBC 01/15/22 Range/Units 09:17 WBC 7.4 (4.5-11.0) K/mm3 RBC 3.77 (3.65-5.03) M/mm3 Hgb 9.4 L (11.8-15.2) gm/dl Hct 29.9 L (35.5-45.6) % Plt Count 307 (140-440) K/mm3 Lymph # (Auto) 0.8 L (1.2-5.4) K/mm3 [place] # (Auto) 0.6 (0.0-0.8) K/mm3 Eos # (Auto) 0.4 (0.0-0.4) K/mm3 Baso # (Auto) 0.1 (0.0-0.1) K/mm3 Comprehensive Metabolic Panel 01/15/22 01/15/22 Range/Units 09:17 13:06 Sodium 139 140 (137-145) mmol/L Potassium 3.3 L 3.4 L (3.6-5.0) mmol/L Chloride 99.6 100.1 (98-107) mmol/L Carbon Dioxide 21 L 20 L (22-30) mmol/L BUN 70 H 69 H (9-20) mg/dL Creatinine 4.9 H 4.9 H (0.8-1.3) mg/dL Glucose 133 H 142 H (75-100) mg/dL Calcium 9.7 9.4 (8.4-10.2) mg/dL AST 10 (5-40) units/L ALT 24 (7-56) units/L Alkaline Phosphatase 81 (35-129) units/L Total Protein 6.5 (6.3-8.2) g/dL Albumin 4.3 (3.9-5) g/dL - Imaging and Cardiology EKG: report reviewed, image reviewed Echo: report reviewed - Telemetry EKG Rhythm: Sinus Rhythm - EKG Sinus rhythms and dysrhythmias: sinus rhythm Chamber hypertrophy or enlargement: left ventricular hypertro Repolarization changes or abnormalities: nonspecific abnormality, ST segment, and/or T wave
[2022-01-16 23:43] LABS: Albumin 4.2 g/dL (3.8-4.8); Gamma Globulin 0.8 g/dL (0.8-1.7)
== END 2022-01-15 16:15 | disposition home or self-care (01) | DRG 871 ==
LOC: ED 19:33 → CC1 01-10 09:37 → 4A 01-11 16:32
PROVIDERS: ADMIT Internal Medicine; ATTEND Student in an Organized Health Care Education/Training Program
DX: A41.9 Sepsis, unspecified organism (principal); J96.01 Acute respiratory failure with hypoxia; J18.9 Pneumonia, unspecified organism; I50.23 Acute on chronic systolic (congestive) heart failure; I21.A1 Myocardial infarction type 2; N18.6 End stage renal disease; I16.1 Hypertensive emergency; N17.9 Acute kidney failure, unspecified; E87.2 Acidosis; E66.2 Morbid (severe) obesity with alveolar hypoventilation; I13.2 Hypertensive heart and chronic kidney disease with heart failure and with stage 5 chronic kidney disease, or end stage renal disease; Z20.822 Contact with and (suspected) exposure to COVID-19; E87.6 Hypokalemia; E78.5 Hyperlipidemia, unspecified; Z82.3 Family history of stroke; Z82.49 Family history of ischemic heart disease and other diseases of the circulatory system; Z68.37 Body mass index [BMI] 37.0-37.9, adult
CPT/HCPCS: 36415; 71046; 76770; 80048; 80053; 80061; 81001; 82550; 82553; 82570; 83520; 83550; 83615; 83880; 84100; 84156; 84165; 84300; 84484; 85025; 86021; 86038; 86160; 86706; 86803; 89050; 93005; 93306; 93970; 94760; G0378; J3490; C8929; J0360; J1644; J1940; J2270; J2405; J7050